=== PATIENT | female | born 1935 | race Caucasian/White ===

== ENCOUNTER → 2018-01-23 13:35 | Outpatient (CLI) | payer MEDICARE, SELFPAY ==
[2018-01-23 14:13] LABS: Hematocrit 34.9 % (37-47); Hemoglobin 11.3 g/dl (12.0-15.0); Mean Corp Hgb Conc 32.4 g/gl (32-36); Mean Corpuscular Hgb 29.9 pg (27.0-32.0); Mean Corpuscular Volume 92.3 fL (81-99); Mean Platelet Vol. 11.6 fl (6.2-12.0); Platelet Count 145 K/mm3 (150-450); RBC Distribution Width CV 14.5 % (11.6-14.6); RBC Distribution Width SD 47.4 fl (35.1-43.9); Red Blood Count 3.78 M/mm3 (4.2-5.4); White Blood Count 6.1 K/mm3 (4.4-11.0)
[2018-01-23 14:18] LABS: Scan Indicated on CBC? Y/N NO
[2018-01-23 14:38] LABS: Albumin, Serum 3.5 g/dL (3.2-5.0); BUN 30 mg/dL (7-18); BUN/Creat Ratio 15.7 RATIO (10-20); Calcium,Total 8.5 mg/dL (8.5-10.1); Chloride 109 mmol/L (98-107); Creatinine, Serum 1.91 mg/dL (0.55-1.02); EST Glomerular Filtration Rate 27 mL/min (>60); Est Glom Filt Rate - Afr Amer 32 mL/min (>60); Ferritin 453 ng/mL (8-252); Glucose 99 mg/dL (74-106); Iron 60 ug/dL (50-170); Iron Binding Capacity,Total 192 ug/dL (250-450); PERCENT IRON SATURATION 31.2 % (15.0-55.0); Phosphorus 3.8 mg/dL (2.5-4.9); Potassium 4.5 mmol/L (3.5-5.1); Sodium Level 145 mmol/L (136-145)
== END ==
PROVIDERS: Family Provider Family Medicine; PCP Family Medicine; Visit Provider Internal Medicine Nephrology
DX: D64.9 Anemia, unspecified (principal); N17.9 Acute kidney failure, unspecified
CPT/HCPCS: 36415; 80069; 82728; 83540; 83550; 85027

== ENCOUNTER 2018-02-19 07:58 | Day surgery (SDC) | payer MEDICARE, SELFPAY ==
[2018-02-19] VITALS (8 sets, daily range): BP systolic 113–134; BP diastolic 41–60; PULSE 47–52; RESP 16; TEMP 36.1–36.6; O2SAT 95–97; BMI 26.1
--- NOTE | 2018-02-19 08:57 | PCM.OPRPT ---
Problem List (1) Change in bowel habits Status: Acute (2) Generalized abdominal pain Status: Acute (3) Diarrhea, unspecified Status: Acute Qualifiers: Diarrhea type: unspecified type Qualified Code(s): R19.7 - Diarrhea, unspecified Report of Operation Date of Procedure: 02/19/18 Surgery/Procedure Performed:: 19021 colonoscopy Type of Anesthesia:: MAC Anesthesiologist: Vijay Mujica Description of Procedure: Patient was brought into the endoscopy suite. Placed in the left lateral decubitus position. Was given graded anesthesia. Scope was inserted into the rectum. It was directed through the sigmoid colon, descending colon, transverse colon, ascending colon, to the cecum without difficulty. Operative findings: 1. Cecum: Normal appearance no mass lesions normal ileocecal valve. 2. Ascending colon: Normal appearance no mass lesions. 3. Transverse colon: Normal appearance no mass lesions. 4. Descending colon: Normal appearance no mass lesions. 5. Sigmoid colon: Normal appearance no mass lesions. Scattered diverticuli were identified. 6. Rectum: Normal appearance no mass lesions retroflexion showed some internal hemorrhoids which were not actively bleeding. The mucosa throughout the colon looked entirely normal. She did have some spasming which I gave her 1 amp of glucagon and I was able to view the entire mucosa quite easily and quite well. She had an excellent bowel prep. There is no explanation for change in bowel habits or generalized abdominal pain given the normalcy of this colonoscopy. She will not need to have another colonoscopy. - Admit VTE Documentation VTE Present on Admission: No VTE Mechan Device Prophylaxis: None VTE Pharm Prophylaxis ordered?: No Reason prophylaxis not ordered:: Treatment Not Indicated
== END 2018-02-19 10:00 | disposition home or self-care (01) ==
LOC: EN 07:59 → AC 08:00
PROVIDERS: Family Provider Family Medicine; PCP Family Medicine; Visit Provider Surgery
PROC: 0DJD8ZZ Inspection of Lower Intestinal Tract, Via Natural or Artificial Opening Endoscopic (ICD-10-PCS; CPT 45378; principal; 2018-02-19 09:25)
DX: R19.4 Change in bowel habit (principal); R10.84 Generalized abdominal pain; K58.0 Irritable bowel syndrome with diarrhea; I13.0 Hypertensive heart and chronic kidney disease with heart failure and stage 1 through stage 4 chronic kidney disease, or unspecified chronic kidney disease; N18.3 Chronic kidney disease, stage 3 (moderate); I50.31 Acute diastolic (congestive) heart failure; I27.20 Pulmonary hypertension, unspecified; G89.4 Chronic pain syndrome; N17.9 Acute kidney failure, unspecified; M06.9 Rheumatoid arthritis, unspecified; G62.9 Polyneuropathy, unspecified; K21.9 Gastro-esophageal reflux disease without esophagitis; F32.9 Major depressive disorder, single episode, unspecified; Z78.0 Asymptomatic menopausal state; Z79.82 Long term (current) use of aspirin; Z79.899 Other long term (current) drug therapy; Z87.442 Personal history of urinary calculi; Z86.2 Personal history of diseases of the blood and blood-forming organs and certain disorders involving the immune mechanism
CPT/HCPCS: G0121; J7120; J1610

== ENCOUNTER → 2018-06-26 13:15 | Outpatient (CLI) | payer MEDICARE, SELFPAY ==
[2018-06-26 14:50] LABS: Albumin, Serum 3.3 g/dL (3.2-5.0); BUN 40 mg/dL (7-18); BUN/Creat Ratio 20.6 RATIO (10-20); Calcium,Total 8.2 mg/dL (8.5-10.1); Chloride 107 mmol/L (98-107); Creatinine, Serum 1.94 mg/dL (0.55-1.02); EST Glomerular Filtration Rate 26 mL/min (>60); Est Glom Filt Rate - Afr Amer 32 mL/min (>60); Glucose 82 mg/dL (74-106); Phosphorus 4.4 mg/dL (2.5-4.9); Potassium 4.3 mmol/L (3.5-5.1); Sodium Level 142 mmol/L (136-145)
[2018-06-26 15:00] LABS: Vitamin D,25 Hydroxy 19.7 ng/mL (29.95-100.01)
== END ==
PROVIDERS: Family Provider Family Medicine; PCP Family Medicine; Referring Provider Internal Medicine Nephrology; Visit Provider Internal Medicine Nephrology
DX: N18.3 Chronic kidney disease, stage 3 (moderate) (principal)
CPT/HCPCS: 36415; 80069; 82306

== ENCOUNTER → 2018-07-01 16:35 | Outpatient (CLI) | payer MEDICARE, SELFPAY ==
[2018-07-02 09:15] LABS: PTHIN 186.6 pg/mL (18.4-80.1)
== END ==
PROVIDERS: Family Provider Family Medicine; PCP Family Medicine; Visit Provider Internal Medicine Nephrology
DX: N18.3 Chronic kidney disease, stage 3 (moderate) (principal)
CPT/HCPCS: 36415; 83970

== ENCOUNTER → 2018-07-30 14:54 | Outpatient (CLI) | payer MEDICARE, SELFPAY ==
[2018-07-30 17:46] LABS: Albumin, Serum 3.5 g/dL (3.2-5.0); BUN 27 mg/dL (7-18); Calcium,Total 8.6 mg/dL (8.5-10.1); Chloride 107 mmol/L (98-107); Creatinine, Serum 1.59 mg/dL (0.55-1.02); EST Glomerular Filtration Rate 33 mL/min (>60); Est Glom Filt Rate - Afr Amer 40 mL/min (>60); Glucose 89 mg/dL (74-106); Potassium 4.6 mmol/L (3.5-5.1); Sodium Level 144 mmol/L (136-145)
== END ==
PROVIDERS: Family Provider Family Medicine; PCP Family Medicine; Referring Provider Internal Medicine Nephrology; Visit Provider Internal Medicine Nephrology
DX: N17.9 Acute kidney failure, unspecified (principal); E55.9 Vitamin D deficiency, unspecified
CPT/HCPCS: 36415; 80069

== ENCOUNTER → 2018-10-08 16:07 | Outpatient (CLI) | payer MEDICARE, SELFPAY ==
[2018-02-19 08:38] VITALS: BMI 26.1
== END ==
PROVIDERS: Family Provider Family Medicine; PCP Family Medicine; Referring Provider Otolaryngology Otolaryngology/Facial Plastic Surgery; Visit Provider Otolaryngology Otolaryngology/Facial Plastic Surgery
DX: J02.9 Acute pharyngitis, unspecified (principal); J32.9 Chronic sinusitis, unspecified; R05 Cough
CPT/HCPCS: 87070; 87077; 87186

== ENCOUNTER → 2018-11-20 13:22 | Outpatient (CLI) | payer MEDICARE, SELFPAY ==
[2018-02-19 08:38] VITALS: BMI 26.1
[2018-11-20 14:41] LABS: Albumin, Serum 3.6 g/dL (3.2-5.0); BUN 42 mg/dL (7-18); BUN/Creat Ratio 27.3 RATIO (10-20); Calcium,Total 8.4 mg/dL (8.5-10.1); Chloride 109 mmol/L (98-107); Creatinine, Serum 1.54 mg/dL (0.55-1.02); EST Glomerular Filtration Rate 34 mL/min (>60); Est Glom Filt Rate - Afr Amer 41 mL/min (>60); Glucose 103 mg/dL (74-106); Phosphorus 4.3 mg/dL (2.5-4.9); Potassium 4.3 mmol/L (3.5-5.1); Sodium Level 143 mmol/L (136-145)
[2018-11-20 14:49] LABS: PTHIN 163.7 pg/mL (18.4-80.1); Vitamin D,25 Hydroxy 25.1 ng/mL (29.95-100.01)
== END ==
PROVIDERS: Family Provider Family Medicine; PCP Family Medicine; Referring Provider Internal Medicine Nephrology; Visit Provider Internal Medicine Nephrology
DX: E55.9 Vitamin D deficiency, unspecified (principal); N17.9 Acute kidney failure, unspecified
CPT/HCPCS: 36415; 80069; 82306; 83970

== ENCOUNTER → 2018-12-25 16:06 | Outpatient (CLI) | payer MEDICARE, SELFPAY | PROVIDERS: Family Provider Family Medicine; PCP Family Medicine; Visit Provider Family Medicine | DX: R49.9 Unspecified voice and resonance disorder (principal); B96.5 Pseudomonas (aeruginosa) (mallei) (pseudomallei) as the cause of diseases classified elsewhere | CPT/HCPCS: 87070 ==

== ENCOUNTER → 2019-02-02 12:49 | Outpatient (CLI) | payer MEDICARE, SELFPAY ==
[2018-02-19 08:38] VITALS: BMI 26.1
--- NOTE | 2019-02-02 12:52 | RAD_ITS ---
STUDY: X-RAY CHEST REASON FOR EXAM: Female, 83 years old. cough TECHNIQUE: PA and lateral views of the chest. COMPARISON: Chest x-ray 02/04/2017. FINDINGS: There is elevation of the right hemidiaphragm. There are loops of bowel interposed between the right hemidiaphragm and liver. There is hyperinflation of the lungs consistent with chronic obstructive lung disease (COPD). There is no demonstrated pleural abnormality. Normal size heart. Normal mediastinum and jono. Normal visualized pulmonary arteries. There is atherosclerotic calcification of the aortic arch . Normal visualized thoracic spine. Normal visualized ribs, clavicles, and shoulders. There is no demonstrated abnormality of the visualized soft tissue structures of the upper abdomen. RAD/Chest PA and Lateral IMPRESSION: Elevation of the right hemidiaphragm. The lungs are clear. Electronically Signed: Ulises Murray, at 16:18 EDT Tel , Service support ,
== END ==
PROVIDERS: Family Provider Family Medicine; PCP Family Medicine; Referring Provider Otolaryngology Otolaryngology/Facial Plastic Surgery; Visit Provider Otolaryngology Otolaryngology/Facial Plastic Surgery
DX: R05 Cough (principal)
CPT/HCPCS: 71046

== ENCOUNTER → 2019-03-30 13:26 | Outpatient (CLI) | payer MEDICARE, SELFPAY ==
[2018-02-19 08:38] VITALS: BMI 26.1
[2019-03-30 15:38] LABS: Albumin, Serum 3.4 g/dL (3.2-5.0); BUN 25 mg/dL (7-18); BUN/Creat Ratio 15.2 RATIO (10-20); Calcium,Total 8.3 mg/dL (8.5-10.1); Chloride 110 mmol/L (98-107); Creatinine, Serum 1.64 mg/dL (0.55-1.02); EST Glomerular Filtration Rate 32 mL/min (>60); Est Glom Filt Rate - Afr Amer 38 mL/min (>60); Glucose 102 mg/dL (74-106); Phosphorus 3.4 mg/dL (2.5-4.9); Potassium 3.9 mmol/L (3.5-5.1); Sodium Level 142 mmol/L (136-145)
== END ==
PROVIDERS: Family Provider Family Medicine; PCP Family Medicine; Referring Provider Internal Medicine Nephrology; Visit Provider Internal Medicine Nephrology
DX: N17.9 Acute kidney failure, unspecified (principal)
CPT/HCPCS: 36415; 80069

== ENCOUNTER → 2019-04-10 13:13 | Outpatient (CLI) | payer MEDICARE, SELFPAY ==
--- NOTE | 2019-04-10 13:16 | CDU_ITS ---
Reason For Study: Carotid Artery Disease, HTN Rt. Velocities/BP Lt. Velocities/BP Prox CCA 72/14 cm/sec. Prox CCA 63/12 cm/sec. Mid CCA 64/15 cm/sec. Mid CCA 69/15 cm/sec. Dist CCA 77/12 cm/sec. Dist CCA 63/13 cm/sec. Prox ICA 72/16 cm/sec. Prox ICA 91/19 cm/sec. Mid ICA 92/17 cm/sec. Mid ICA 124/25 cm/sec. Dist ICA 99/20 cm/sec. Dist ICA 151/27 cm/sec. Rt. ICA/CCA = 1.6. Lt. ICA/CCA = 2.2. Prox ECA 48 cm/sec. Prox ECA 69 cm/sec. Rt. Vert. 59/11 cm/sec. Lt. Vert. 56/9 cm/sec. Right Extracranial There is heterogeneous, smooth atherosclerotic plaque noted in the right common carotid artery. There is heterogeneous, irregular atherosclerotic plaque noted in the right internal carotid artery. There is intimal thickening but no significant atherosclerotic plaque noted in the right external carotid artery. Antegrade flow is noted in the right vertebral artery. Left Extracranial There is heterogeneous, irregular atherosclerotic plaque noted in the left common carotid artery. There is heterogeneous, irregular atherosclerotic plaque noted in the left internal carotid artery. The left internal carotid artery is very tortuous. There is heterogeneous, irregular atherosclerotic plaque noted in the left external carotid artery. Antegrade flow is noted in the left vertebral artery. Procedure Carotid Duplex [id number]. Exam performed in department. Interpretation Summary Mild (<50%) stenosis right extracranial internal carotid. Mild (<50%) stenosis left extracranial internal carotid. Elevated velocities in the left distal internal carotid artery appear to be due to tortuosity. Flow within the vertebral arteries is antegrade bilaterally. Ordering Physician: Bassam Brown Referring Physician: Bassam Brown Performed By: Ayah Robledo RDCS, RVT
== END ==
PROVIDERS: Family Provider Family Medicine; PCP Family Medicine; Referring Provider Family Medicine; Visit Provider Family Medicine
DX: R09.89 Other specified symptoms and signs involving the circulatory and respiratory systems (principal); I65.29 Occlusion and stenosis of unspecified carotid artery; I10 Essential (primary) hypertension
CPT/HCPCS: 70450; 71045; 80048; 85025; 93880; 99284; J7030; A4216; J2405

== ENCOUNTER 2019-04-10 18:30 | Emergency (ER) | payer MEDICARE, SELFPAY ==
[2019-04-10 18:30] VITALS: BP 201/76; PULSE 56; RESP 16; TEMP 36.5; O2SAT 95; BMI 23.4
--- NOTE | 2019-04-10 19:07 | CT_ITS ---
STUDY: CT BRAIN WITHOUT CONTRAST REASON FOR EXAM: Female, 83 years old. Headache and hypertension. RADIATION DOSAGE (If Supplied By Facility): CTDIvol = ( 44.99 ) mGy, DLP = ( 762.36 ) mGycm TECHNIQUE: Transaxial CT imaging of the brain was performed without administration of intravenous contrast material. Individualized dose optimization techniques were used for this CT. COMPARISON: Prior head CT exam of October 11, 2016 FINDINGS: Normal soft tissue structures. Normal calvarium. There is mild cerebral atrophy with widening of the extra-axial spaces and ventricular dilatation. There are areas of decreased attenuation within the white matter tracts of the supratentorial brain, consistent with microvascular disease changes. Normal basal ganglia and thalami. Normal brainstem. Normal cerebellum. Carotid and vertebral artery calcifications. There is no intracranial hemorrhage. There are no findings of an acute ischemic infarction. 10 mm retention cyst of the left maxillary sinus. CT/Brain/Head without Contrast IMPRESSION: No acute intracranial findings. Negative for hemorrhage, hematoma or mass density. Mild involutional changes stable from prior exam. Carotid vertebral artery calcifications. 10 mm retention cyst of the left maxillary sinus. Electronically Signed: Reina Blanchard MD at 19:57 EDT , Service support ,
[2019-04-10] MEDS: Ondansetron 4 MG/2 ML Vial IV (19:28)
[2019-04-10] MEDS: 0.9% Normal Saline 1,000 ML 1000 ML IV (19:28)
[2019-04-10 19:33] VITALS: BP 200/65; PULSE 55; RESP 16; O2SAT 96
[2019-04-10 19:50] LABS: Anion Gap 4 (5-15); BUN 20 mg/dL (7-18); BUN/Creat Ratio 13.8 RATIO (10-20); Calcium,Total 8.4 mg/dL (8.5-10.1); Chloride 109 mmol/L (98-107); Creatinine, Serum 1.45 mg/dL (0.55-1.02); EST Glomerular Filtration Rate 37 mL/min (>60); Est Glom Filt Rate - Afr Amer 44 mL/min (>60); Estimated Creatinine Clearance 28.59 ml/min; Glucose 87 mg/dL (74-106); Potassium 4.5 mmol/L (3.5-5.1); Sodium Level 142 mmol/L (136-145)
[2019-04-10 20:15] LABS: Absolute Lymphocyte Count 1.05 X10^3/ul (0.83-4.51); Absolute Neutrophil Count 2.7 X10^3/uL (2.0-7.7); Basophil# 0.02 X10^3/uL; Basophil% 0.4 % (0-1); Eosinophil# 0.19 X10^3/uL; Eosinophils% 4.2 % (0-5); Hematocrit 29.6 % (37-47); Hemoglobin 9.6 g/dl (12.0-15.0); Lymphocyte # 1.05 X10^3/ul (4.0); Lymphocyte % 23.1 % (19-41); Mean Corp Hgb Conc 32.4 g/gl (32-36); Mean Corpuscular Hgb 29.3 pg (27.0-32.0); Mean Corpuscular Volume 90.2 fL (81-99); Mean Platelet Vol. 11.9 fl (6.2-12.0); Monocyte# 0.59 X10^3/uL; Neutrophil # 2.69 X10^3/uL (2.7-7.7); Neutrophil % 59.1 % (47-70); Platelet Count 83 K/mm3 (150-450); RBC Distribution Width CV 15.2 % (11.6-14.6); Red Blood Count 3.28 M/mm3 (4.2-5.4); White Blood Count 4.6 K/mm3 (4.4-11.0)
[2019-04-10 20:23] LABS: POSITIVE COUNT NO; POSITIVE DIFFERENTIAL NO; POSITIVE MORPHOLOGY NO
[2019-04-10 20:54] VITALS: BP 202/67; PULSE 55
[2019-04-10 22:16] VITALS: BP 195/74; PULSE 55; RESP 16; O2SAT 98
--- NOTE | 2019-04-10 22:39 | ED.DCSUM_ITS ---
- ER Visit Summary Date of Service: 04/10/19 Chief Complaint: Acute on chronic hypertension. History of Present Illness: The patient is a 83 F [facility] resident with a history of hypertension, CHF and renal insufficiency. Brought in for elevated blood pressure today. She has had mild headaches. She has had some intermittent nausea and vomiting. No fall or head trauma. She is on no blood thinners. No fever chills or diarrhea. No dysuria. No abdominal pain or chest pain. No shortness of breath. Physical Examination: Elderly female no acute distress. Vital signs initial blood pressure 201/76. Pulse ox 95% on room air hypoxia. HEENT exam unremarkable. Neck nontender no JVD. No lymphadenopathy. Lungs clear to auscultation bilaterally. Heart regular rhythm no murmur. Abdomen soft and nontender. Normal bowel sounds no peritoneal signs. Extremities moves all 4. Calves nontender. Neurologically she is awake and alert. Answering questions and following commands. No focal motor deficits. Test Results: CBC showed a chronic anemia with a hemoglobin 9.6 normally she runs between 911. White count of 4. Her platelet count is low 83,000 which I discussed with her daughter. Chemistries are unremarkable her creatinine is 1.45 which is her baseline renal insufficiency. CT of the brain showed no acute abnormality chronic changes read both by myself and the radiologist. X-ray portable one view shows no acute abnormality. Chronically elevated right hemidiaphragm. No signs of failure or pneumonia. Emergency Department Course and Treatment: Repeat exam patient is doing well at 2220. Her blood pressure is currently 195/104. She will be given a dose of IV Lopressor. Daughter and patient are current with her being discharged back to the extended care facility. Blood pressure actually worsened and she was given a dose of labetalol. Currently her pressure is 190/68. She will be discharged to home. Treatment Plan: Continue current medications. Close observation of her blood pressures. And follow-up with her primary care physician for adjustment of her blood pressure medications as needed. She will need her platelet count reevaluated within the next 1 to 2 weeks. Disposition: Discharge Impression: Acute on chronic hypertension Chronic simple anemia Worsening thrombocytopenia which will need to reevaluate. Chronic renal insufficiency This note was generated with [employer] dictation software. It may contain incorrect words, spelling, and punctuation that were not noted in review of the chart prior to signing ED Disposition - Plan for ED Patient: Disposition: Home or Assisted Living Instructions: HYPERTENSION, Established, Out of Control Referrals: Bassam Brown, [Primary Care Provider] - 5-7 Days Additional Instructions: Follow-up with primary care physician. They need to log her blood pressures daily at the [place] [facility] and follow that up with her primary care physician to see if they need to adjust her blood pressure medications. Her blood counts were where she normally runs being anemic. However her platelet count was only 83,000 and will need to be rechecked. Follow-up with your doctor. Return if feeling worse.
--- NOTE | 2019-04-10 22:43 | ED.DEP ---
ED Disposition - Plan for ED Patient: Disposition: Home or Assisted Living Instructions: HYPERTENSION, Established, Out of Control Referrals: Bassam Brown, [Primary Care Provider] - 5-7 Days Additional Instructions: Follow-up with primary care physician. They need to log her blood pressures daily at the senior care and follow that up with her primary care physician to see if they need to adjust her blood pressure medications. Her blood counts were where she normally runs being anemic. However her platelet count was only 83,000 and will need to be rechecked. Follow-up with your doctor. Return if feeling worse.
[2019-04-10] MEDS: Metoprolol Tartrate 5 MG/5 ML Vial IV (22:46)
[2019-04-10 23:06] VITALS: BP 232/71; PULSE 52; RESP 18; O2SAT 90
--- NOTE | 2019-04-10 23:30 | RAD_ITS ---
STUDY: X-RAY CHEST REASON FOR EXAM: Female, 83 years old. Hypertension TECHNIQUE: Single AP portable view of the chest. COMPARISON: February 02, 2019 February 04, 2017, February 02, 2019 FINDINGS: There is elevation of the right hemidiaphragm stable since prior study. There is a small focal opacity within the right upper lobe measuring 4 x 6 mm. This was not definitively seen on the prior study allowing for the common location of the pvc monitor lead. There is no demonstrated pleural abnormality. There are chronic appearing lung markings. Normal size heart. Normal mediastinum and jono. Normal visualized pulmonary arteries. There is atherosclerotic calcification of the aortic arch with tortuosity. There are diffuse degenerative changes of the visualized thoracic spine. Normal visualized ribs, clavicles, and shoulders. Surgical clips in the right upper quadrant status post cholecystectomy. RAD/Chest 1 View (Portable) IMPRESSION: 4 x 6 mm right upper lobe pulmonary nodule. When possible recommend noncontrast chest CT to exclude the possibility of a neoplastic nodule. Chronic elevation of the right hemidiaphragm. Electronically Signed: Lissett Law MD at 23:56 EDT Tel , Service support ,
[2019-04-10 23:48] VITALS: BP 190/68; PULSE 53; RESP 22; O2SAT 90
[2019-04-11] VITALS: BP 207/71; PULSE 53; RESP 20; O2SAT 89
[2019-04-11 00:24] VITALS: BP 202/71
[2019-04-11 00:39] VITALS: BP 202/74; PULSE 52; RESP 16; O2SAT 91
== END 2019-04-11 00:40 | disposition home or self-care (01) ==
PROVIDERS: Emergency Provider Emergency Medicine; Family Provider Family Medicine; PCP Family Medicine
DX: I13.0 Hypertensive heart and chronic kidney disease with heart failure and stage 1 through stage 4 chronic kidney disease, or unspecified chronic kidney disease (principal); N18.3 Chronic kidney disease, stage 3 (moderate); I50.9 Heart failure, unspecified; R11.2 Nausea with vomiting, unspecified; R09.89 Other specified symptoms and signs involving the circulatory and respiratory systems; I65.29 Occlusion and stenosis of unspecified carotid artery; D69.6 Thrombocytopenia, unspecified; D64.9 Anemia, unspecified; Z79.82 Long term (current) use of aspirin; Z79.899 Other long term (current) drug therapy
CPT/HCPCS: 70450; 71045; 80048; 85025; 93880; 96361; 96374; 96375; 99284; J7030; A4216; J2405

== ENCOUNTER → 2019-04-28 12:31 | Outpatient (CLI) | payer MEDICARE, SELFPAY ==
[2019-04-10 18:30] VITALS: BMI 23.4
--- NOTE | 2019-04-28 12:35 | CT_ITS ---
STUDY: CT BRAIN WITHOUT CONTRAST REASON FOR EXAM: Female, 83 years old. Right facial bruising due to multiple falls. RADIATION DOSAGE (If Supplied By Facility): CTDIvol = ( 44.99 ) mGy, DLP = ( 745.49 ) mGycm TECHNIQUE: Transaxial CT imaging of the brain was performed without administration of intravenous contrast material. Individualized dose optimization techniques were used for this CT. COMPARISON: Comparison is made with prior study dated April 10, 2019. FINDINGS: There is evidence of a small scalp hematoma overlying the right frontal bone. Normal calvarium. There is mild cerebral atrophy with widening of the extra-axial spaces and ventricular dilatation. There are areas of decreased attenuation within the white matter tracts of the supratentorial brain, consistent with microvascular disease changes. Normal basal ganglia and thalami. Normal brainstem. There is mild cerebellar atrophy. There is no intracranial hemorrhage. There are no findings of an acute ischemic infarction. Atherosclerotic calcification of the cavernous portions of the internal carotid arteries as well as the vertebral arteries. Mucosal thickening at the base of the left maxillary sinus versus retention cyst as well as mild thickening of the ethmoid sinuses. CT/Brain/Head without Contrast IMPRESSION: Chronic involutional changes of the brain. Stable examination. Electronically Signed: Kayden Sullivan, at 13:34 EDT , Service support ,
== END ==
PROVIDERS: Family Provider Family Medicine; PCP Family Medicine; Referring Provider Family Medicine; Visit Provider Family Medicine
DX: R41.0 Disorientation, unspecified (principal); R29.6 Repeated falls; Z79.02 Long term (current) use of antithrombotics/antiplatelets
CPT/HCPCS: 70450

== ENCOUNTER → 2019-05-04 13:18 | Outpatient (CLI) | payer MEDICARE, SELFPAY ==
[2019-04-10 18:30] VITALS: BMI 23.4
--- NOTE | 2019-05-04 13:00 | SP.MBSS_ITS ---
PRIMARY / SECONDARY DIAGNOSIS: Dysphagia REFERRING PHYSICIAN: Dr. Tejeda CURRENT DIET: regular/thin DENTITION: present MENTAL STATUS: WFL for participation in MBS RESPIRATORY STATUS: oxygenating on room air, denies O2 use, reports recent initiation of inhalers for asthma PREVIOUS MODIFIED BARIUM SWALLOW STUDY: n/a REASON FOR REFERRAL: Patient reports sensation of pharyngeal retention w/ bread/meat/medications and occasional ?gurgling? when drinking liquids in an attempt to clear this sensation of pharyngeal retention. Patient denies head/neck surgery, known CVA or neurological diagnosis, recent/recurrent PNA, or unintended weight loss. MEDICAL HISTORY: peripheral neuropathy, pulmonary hypertension, acute diastolic congestive heart failure, CKD stage III, elevated hemidiaphragm, depression, altered mental status, acute respiratory failure, chronic pain syndrome, RA history obtained from review of [facility] medical records STUDY FINDINGS: Patient participated in a Modified Barium Swallow (MBS) study on 05/04/2019. Dr. Sullivan was the radiologist present for this evaluation. This study was not recorded due to equipment failure. The following consistencies were presented to this patient for analysis of oropharyngeal swallow function: thin liquid, pudding and a shortbread cookie. Results of the MBS are as follows: PENETRATION / ASPIRATION SCALE (NOEL): 1 = does not enter airway 2 = enters airway/above vocal folds/ejected 3 = enters airway/above vocal folds/not ejected 4 = enters airway/contacts vocal folds/ejected 5 = enters airway/contacts vocal folds/not ejected 6 = enters airway/below vocal folds/ejected 7 = enters airway/below vocal folds/not ejected despite effort 8 = enters airway/below vocal folds/no effort PENETRATION / ASPIRATION SCALE (SCORE): 1. Thin liquid 5mL teaspoon: 1 2. Thin liquid 5mL teaspoon: 2 3. Thin liquid single sip from cup: 5 4. Thin liquid single sip from cup w/ chin tuck: 1 5. Thin liquid single sip from cup w/ chin tuck: 1 6. Puddin 7. Cookie: 1 8. Thin liquid single sip from cup w/ chin tuck: 1 penetration of pharyngeal residue noted after the swallow, cued expectoration and re-swallow effective to clear the laryngeal vestibule of penetrated contrast 9. Thin liquid single sip from cup w/ chin tuck: 1 IMPRESSION ORAL PHASE CHARACTERIZED BY: LABIAL SEAL: interlabial escape, no progression to anterior lip TONGUE CONTROL DURING BOLUS MANIPULATION: posterior escape of less than half of bolus BOLUS PREPARATION / MASTICATION: slow prolonged chewing/mashing with complete recollection BOLUS TRANSPORT / LINGUAL MOTION: slowed tongue motion ORAL RESIDUE: trace residue lining oral structures PHARYNGEAL PHASE CHARACTERIZED BY: INITIATION OF PHARYNGEAL SWALLOW: bolus head in valleculae at first hyoid excursion SOFT PALATE ELEVATION: no bolus between soft palate and pharyngeal wall LARYNGEAL ELEVATION: partial superior movement of thyroid cartilage/partial approximation of arytenoids cartilage to epiglottic petiole ANTERIOR HYOID EXCURSION: partial anterior movement EPIGLOTTIC MOVEMENT: partial epiglottic inversion LARYNGEAL VESTIBULE CLOSURE AT HEIGHT OF SWALLOW: incomplete laryngeal vestibule closure with narrow column of air/contrast in laryngeal vestibule PHARYNGEAL STRIPPING WAVE: pharyngeal stripping wave present / diminished PHARYNGOESOPHAGEAL SEGMENT OPENING: partial distension and partial duration; partial obstruction of flow TONGUE BASE RETRACTION: narrow column of contrast between tongue base and posterior pharyngeal wall PHARYNGEAL RESIDUE: collection of residue within or on pharyngeal structures ESOPHAGEAL PHASE CHARACTERIZED BY: ESOPHAGEAL BOLUS CLEARANCE IN THE UPRIGHT POSITION: esophageal retention EFFECTS OF TREATMENT STRATEGIES ATTEMPTED: CHIN TUCK POSTURE = effective to effective to reduce arytenoid to epiglottic petiole distance during deglutition for improved laryngeal vestibule closure w/ elimination of penetration CUED EXPECTORATION AND RESWALLOW= effective to clear penetrated contrast from the laryngeal vestibule EFFORTFUL SWALLOW = effective to reduce but not eliminate vallecular retention DOUBLE SWALLOW = effective to reduce but not eliminate vallecular retention LIQUID CHASER = effective to reduce but not assist in clearance of vallecular retention INTERPRETATION OF RESULTS: This patient presents with mild oropharyngeal dysphagia (R13.12). The oral phase is primarily marked by slowed oral prep w/ suboptimal lingual control resulting in premature pharyngeal bolus entry. The pharyngeal phase is primarily marked by a mild pharyngeal swallow onset timing (bolus head in the valleculae), reduced hyolaryngeal excursion, tongue base retraction, laryngeal vestibule closure and pharyngeal contraction resulting in suboptimal bolus location upon swallow onset w/ laryngeal vestibule penetration of thin liquid. Use of a chin tuck posture was effective to reduce arytenoid to epiglottic petiole distance during deglutition for improved laryngeal vestibule closure w/ elimination of penetration. Reduced tongue base retraction/pharyngeal contraction in conjunction w/ reduced hyolaryngeal excursion resulted in incomplete epiglottic inversion w/ moderate to severe vallecular residue retention post deglutition which is the likely cause of the globus sensation w/ bread/meat/pills reported by patient which precipitated referral. Use of a double swallow, effortful swallow and liquid chaser were all effective to reduce pharyngeal residue retention/facilitate improved pharyngeal bolus clearance. Laryngeal vestibule penetration noted following effortful swallow w/ liquid wash (using chin tuck) cued expectoration and re-swallow was effective to eject penetration from the laryngeal vestibule. RECOMMENDATIONS DIET TEXTURE RECOMMENDATIONS: regular textures/thin liquids COMPENSATORY STRATEGIES RECOMMENDED: small bites/sips, tuck chin to chest when swallowing liquids (tuck with all swallows in unable to consistently recall and utilize w/ liquids only), swallow twice/HARD following solids if pharyngeal fullness/retention noted and follow w/ liquid wash, seated upright at 90 degrees during PO intake, remain upright for 30-60 minutes post meal (GERD precaution), medications crushed (if cleared per physician/pharmacy) w/ purees and a liquid chaser NEED FOR SKILLED DYSPHAGIA INTERVENTION: Patient requires intensive skilled speech-language intervention targeting continued diet texture management, training and implementation of recommended compensatory strategies and instruction/implementation of an oropharyngeal strengthening exercises to facilitate improved swallow onset timing, tongue base retraction, laryngeal vestibule closure/pressure, hyolaryngeal excursion/epiglottic inversion and pharyngeal motility. ADDITIONAL COMMENTS: Results and recommendations were discussed with the Patient and two daughters immediately following MBS completion. Written instruction to reinforce recommended compensatory strategies was provided with the Patient verbalizing understanding and agreement with all recommendations and education provided.
--- NOTE | 2019-05-04 13:29 | RAD_ITS ---
STUDY: SWALLOWING STUDY REASON FOR EXAM: Female, 83 years old. Dysphagia. TECHNIQUE: The examination was performed with Speech Pathology in attendance. Under fluoroscopic observation, the patient ingested thin barium, thick barium, barium pudding, and barium coated cracker. FLUOROSCOPY TIME: 3:02 minutes/seconds RADIOLOGIST INVOLVEMENT: Radiologist was present and providing direct supervision. COMPARISON: None. FINDINGS: The following was observed during swallowing of the various mixtures of barium: Thin Barium: Penetration with evacuation upon ingestion of thin liquids. This improves with the chin tuck maneuver. Barium Pudding: There was no evidence of aspiration or laryngeal penetration. Moderate residual within the vallecula. Barium Coated Cracker: There was no evidence of aspiration or laryngeal penetration. RAD/Swallowing Function w/Video IMPRESSION: Transient penetration with evacuation upon ingestion of thin liquids. This improves with the chin tuck maneuver. The swallow study findings were discussed with the patient by the speech pathologist at the conclusion of the examination. Please see speech pathology report for more information and recommendations. Electronically Signed: Kayden Sullivan, at 14:38 EDT , Service support ,
== END ==
PROVIDERS: Family Provider Family Medicine; PCP Family Medicine; Referring Provider Internal Medicine Pulmonary Disease; Visit Provider Internal Medicine Pulmonary Disease
DX: R13.10 Dysphagia, unspecified (principal)
CPT/HCPCS: 74230; 92611

== ENCOUNTER → 2019-05-12 12:25 | Outpatient (CLI) | payer MEDICARE, SELFPAY ==
[2019-05-12 11:38] VITALS: BMI 23.7
[2019-05-12 14:06] LABS: Absolute Lymphocyte Count 0.99 X10^3/uL (0.83-4.51); Absolute Neutrophil Count 1.9 X10^3/uL (2.0-7.7); Basophil# 0.06 X10^3/uL; Basophil% 1.7 % (0-1); Hematocrit 29.3 % (37-47); Hemoglobin 9.4 g/dL (12.0-15.0); Lymphocyte # 0.99 X10^3/ul (4.0); Lymphocyte % 28.8 % (19-41); Mean Corp Hgb Conc 32.1 g/dL (32-36); Mean Corpuscular Hgb 29.7 pg (27.0-32.0); Mean Corpuscular Volume 92.4 fL (81-99); Mean Platelet Vol. 12.7 fl (6.2-12.0); Monocyte# 0.47 X10^3/uL; Monocyte% 13.7 % (0-10); NRBC Flagged by Analyzer 0 % (0-5); Neutrophil # 1.91 X10^3/uL (2.7-7.7); Neutrophil % 55.5 % (47-70); POSITIVE MORPHOLOGY YES; Platelet Count 118 K/mm3 (150-450); RBC Distribution Width CV 14.9 % (11.6-14.6); Red Blood Count 3.17 M/mm3 (4.2-5.4); White Blood Count 3.4 K/mm3 (4.4-11.0)
[2019-05-12 14:18] LABS: Differential Indicated SCAN CRITERIA MET
[2019-05-12 14:22] LABS: T4 Total, Thyroxin 11.4 ug/dL (4.8-13.9); Thyroid Stim Hormone (TSH) 1.81 uIU/mL (0.358-3.74)
[2019-05-12 14:24] LABS: Differential Comment SCANNED
[2019-05-12 14:25] LABS: Red Cell Morphology NORM C+C NORMAL (NORM C&C)
[2019-05-12 14:26] LABS: Platelet Estimate SLT DEC (ADEQ)
== END ==
PROVIDERS: Family Provider Family Medicine; PCP Family Medicine; Referring Provider Internal Medicine Cardiovascular Disease; Visit Provider Internal Medicine Cardiovascular Disease
DX: I50.32 Chronic diastolic (congestive) heart failure (principal); I34.0 Nonrheumatic mitral (valve) insufficiency
CPT/HCPCS: 36415; 84436; 84443; 85025

== ENCOUNTER → 2019-07-31 15:43 | Outpatient (CLI) | payer MEDICARE, SELFPAY ==
[2019-05-12 11:38] VITALS: BMI 23.7
== END ==
PROVIDERS: Family Provider Family Medicine; PCP Family Medicine; Referring Provider Otolaryngology Otolaryngology/Facial Plastic Surgery; Visit Provider Otolaryngology Otolaryngology/Facial Plastic Surgery
DX: J32.9 Chronic sinusitis, unspecified (principal)
CPT/HCPCS: 87070; 87077; 87186; 87205

== ENCOUNTER → 2019-10-06 15:57 | Outpatient (CLI) | payer MEDICARE, SELFPAY ==
[2019-09-08 13:34] VITALS: BMI 23.7
[2019-10-06 17:19] LABS: Hematocrit 29.7 % (37-47); Hemoglobin 9.4 g/dL (12.0-15.0); Mean Corp Hgb Conc 31.6 g/dL (32-36); Mean Corpuscular Hgb 29.5 pg (27.0-32.0); Mean Corpuscular Volume 93.1 fL (81-99); Mean Platelet Vol. 12.3 fl (6.2-12.0); Platelet Count 117 K/mm3 (150-450); RBC Distribution Width CV 15.3 % (11.6-14.6); Red Blood Count 3.19 M/mm3 (4.2-5.4); White Blood Count 3.5 K/mm3 (4.4-11.0)
[2019-10-06 17:33] LABS: Albumin, Serum 3.1 g/dL (3.2-5.0); BUN 23 mg/dL (7-18); BUN/Creat Ratio 17.3 RATIO (10-20); Calcium,Total 8.1 mg/dL (8.5-10.1); Chloride 110 mmol/L (98-107); Creatinine, Serum 1.33 mg/dL (0.55-1.02); EST Glomerular Filtration Rate 40 mL/min (>60); Est Glom Filt Rate - Afr Amer 49 mL/min (>60); Glucose 81 mg/dL (74-106); Phosphorus 3.3 mg/dL (2.5-4.9); Potassium 4.4 mmol/L (3.5-5.1); Sodium Level 144 mmol/L (136-145)
== END ==
PROVIDERS: Family Provider Family Medicine; PCP Family Medicine; Visit Provider Internal Medicine Nephrology
DX: N18.3 Chronic kidney disease, stage 3 (moderate) (principal)
CPT/HCPCS: 36415; 80069; 85027

== ENCOUNTER 2020-02-12 22:53 | Emergency (ER) | payer MEDICARE, MEDICAID, SELFPAY ==
[2019-09-08 13:34] VITALS: BMI 23.7
[2020-02-12 22:55] VITALS: BP 191/57; PULSE 54; RESP 18; TEMP 36.7; O2SAT 92; BMI 21.0
--- NOTE | 2020-02-12 23:13 | CT_ITS ---
STUDY: CT BRAIN WITHOUT CONTRAST REASON FOR EXAM: Female, 84 years old. Fall. No visible abrasions. Consciousness. History of hypertension, chronic kidney disease. RADIATION DOSAGE (If Supplied By Facility): CTDIvol = ( 44.99 ) mGy, DLP = ( 796.11 ) mGycm TECHNIQUE: Transaxial CT imaging of the brain was performed without administration of intravenous contrast material. Individualized dose optimization techniques were used for this CT. COMPARISON: March 29, 2019. FINDINGS: Normal soft tissue structures. Normal calvarium. There is mild cerebral atrophy with widening of the extra-axial spaces and ventricular dilatation. There are areas of decreased attenuation within the white matter tracts of the supratentorial brain, consistent with microvascular disease changes. There are small punctate calcifications of the basal ganglia which are seen in the aging brain as a normal variant. Normal brainstem. Normal cerebellum. There is no intracranial hemorrhage. There are no findings of an acute ischemic infarction. Mucous retention cyst in the left maxillary sinus. CT/Brain/Head without Contrast IMPRESSION: 1. Chronic involutional changes without evidence of acute intracranial or calvarial abnormality. There is no major interval change when compared to prior study. 2. Mucous retention cyst in left maxillary sinus. 3. Resolution of the right frontal subcutaneous hematoma seen on the prior study. Electronically Signed: Tirso Martin DO at 23:49 EDT Tel [phone], Service support ,
--- NOTE | 2020-02-12 23:13 | EKG12_ITS ---
Test Reason : FALL Blood Pressure : / mmHG Vent. Rate : 047 BPM Atrial Rate : 047 BPM P-R Int : 202 ms QRS Dur : 124 ms QT Int : 510 ms P-R-T Axes : 055 -43 020 degrees QTc Int : 451 ms Sinus bradycardia Left axis deviation Left bundle branch block Abnormal ECG Confirmed by JD LARES, CATRINA ([id number]), offline editor MELISA MOORE ([id number]) on 02/16/2020 3:18:09 PM Referred By: KATHY Confirmed By:CATRINA MILES MD
--- NOTE | 2020-02-12 23:14 | RAD_ITS ---
HISTORY: Fall/confusion. Hx of HTN, CKD, RA and prior back surgery EXAMINATION/TECHNIQUE: XR Chest 1 View: Portable COMPARISON: 04/10/2019 and 02/02/2019 FINDINGS: Cardiac telemetry leads in place. No significant change. Chronic eventration of the right hemidiaphragm with secondary hypoventilation of the right lung base. Interposition of the right colon beneath the right hemidiaphragm, unchanged. The heart appears unchanged in size and estimation of heart size is difficult secondary to obscuration of the right heart border. No acute infiltrate. The left lung appears clear. No vascular congestion or pneumothorax. Atherosclerotic thoracic aorta. RAD/Chest 1 View (Portable) IMPRESSION: 1. No acute cardiopulmonary disease. No significant interval change. 2. Chronic eventration of the right hemidiaphragm. at 0027 Reported and signed by: Raul Davila MD Electronically Signed: Raul Davila, at 0:26 EDT Tel , Service support ,
--- NOTE | 2020-02-12 23:14 | RAD_ITS ---
HISTORY: Fall/confusion. EXAMINATION/TECHNIQUE: XR left shoulder 2 views COMPARISON: None FINDINGS: No fracture or dislocation. Mild narrowing of the subacromial-humeral space compatible with chronic rotator cuff disease. Localized calcifications bordering the superior lateral humeral head compatible with calcific tendinosis. 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 RAD/Shoulder min 2 Views IMPRESSION: 1. No fracture or dislocation. 2. Left shoulder focal calcific tendinosis and degenerative changes. at 0050 Reported and signed by: Raul Davila MD Electronically Signed: Raul Davila, at 0:49 EDT Tel , Service support ,
--- NOTE | 2020-02-12 23:16 | ED.VIS.GEN ---
History of Present Illness Chief Complaint: Fall Informant: Patient, SNF Onset: Today Current Severity: Mild Maximum Severity: Mild Narrative: Patient presents after a fall at her correction. Patient reportedly got up from the commode and states that she became dizzy and lightheaded. She then fell. She does not remember all the details but does not believe she passed out. She has no complaints at this time. She is noted to have a superficial laceration to left parietal scalp and a bruise on her left shoulder. Patient reportedly is normally ANO x3 and was only ANO x2 after her fall tonight. - Past Medical History (1) CKD (chronic kidney disease), stage III Status: Chronic (2) Chronic anemia Status: Chronic (3) Chronic diastolic (congestive) heart failure Status: Chronic (4) Depression Status: Chronic (5) HTN (hypertension) Status: Chronic (6) Hyperlipidemia Status: Chronic (7) Peripheral neuropathy Status: Chronic (8) Rheumatoid arthritis Status: Chronic (9) Secondary pulmonary hypertension Status: Chronic Past Medical History - Allergies and Home Meds Allergies/Adverse Reactions: Allergies infliximab [From Remicade] Allergy (Verified 02/12/20 23:00) Hives Penicillins Allergy (Verified 02/12/20 23:00) Hives methotrexate Adverse Reaction (Verified 02/12/20 23:00) Unknown Primary Care Physician: Bassam Brown DO [Primary Care Provider] - 5-7 Days Prior records reviewed: Yes Surgical History: cholecystectomy, - - Back surgery. Lives: Assisted Smoking Status: Never smoker - Family History Maternal Family History: Reports: No pertinent history, - Paternal Family History: Reports: No pertinent history Review of Systems General: Denies: Chills, Fever Eyes: Denies: Visual changes - bilaterally ENT: Denies: Bilateral ear pain Cardiovascular: Denies: Chest pain Respiratory: Denies: Dyspnea, Cough Gastrointestinal: Denies: Abdominal pain, Nausea, Vomiting, Diarrhea Musculoskeletal: Reports: Swelling. Denies: Extremity Pain Skin: Reports: Wounds Neurological: Denies: Headache Allergy: Denies: Uticaria Physical Exam Vital Signs/Narrative: Vital Signs Temp Pulse Resp BP Pulse Ox 02/12/20 22:55 98.1 F 54 L 18 191/57 H 92 Inital Vital Signs reviewed: Yes General: Well nourished, Well developed Head: Normocephalic, - - 2 cm superficial laceration with small hematoma left parietal scalp. Eyes: Perrl, EOMI ENT: Moist mucous membranes Neck: Supple, - - No C-spine tenderness. Cardiovascular: Irregular, Bradycardia Respiratory: No distress, CTA bilaterally, Chest nontender Abdomen: Soft, Nontender, Normal bowel sounds Extremities: - - Small area of ecchymosis over the posterior left humeral head. No bony tenderness. 2-3+ bilateral lower extremity edema is noted. Skin: Pallor Neurological: Alert Psychological: Normal affect Diagnostic/Tx/Re-eval Impressions Brain CT 02/12/20 23:13 IMPRESSION: 1. Chronic involutional changes without evidence of acute intracranial or calvarial abnormality. There is no major interval change when compared to prior study. 2. Mucous retention cyst in left maxillary sinus. 3. Resolution of the right frontal subcutaneous hematoma seen on the prior study. Electronically Signed: Tirso Martin DO at 23:49 EDT Tel [phone], Service support , Chest X-Ray 02/12/20 23:14 IMPRESSION: 1. No acute cardiopulmonary disease. No significant interval change. 2. Chronic eventration of the right hemidiaphragm. at 0027 Reported and signed by: Raul Davila MD Electronically Signed: Raul Davila, at 0:26 EDT Tel , Service support , Shoulder X-Ray 02/12/20 23:14 IMPRESSION: 1. No fracture or dislocation. 2. Left shoulder focal calcific tendinosis and degenerative changes. at 0050 Reported and signed by: Raul Davila MD Electronically Signed: Raul Davila, at 0:49 EDT Tel , Service support , 02/12/20 23:13 Brain/Head without Contrast [CT] Stat 02/12/20 23:14 Chest 1 View (Portable) [RAD] Stat Shoulder min 2 Views [RAD] Stat Laboratory Results 02/12/20 02/12/20 02/12/20 23:11 23:11 23:11 WBC 5.5 RBC 2.90 L Hgb 8.9 L Hct 28.3 L MCV 97.6 MCH 30.7 MCHC 31.4 L RDW Std Deviation 54.0 H RDW Coeff of Dre 15.2 H Plt Count 133 L MPV 11.4 Immature Gran % (Auto) 1.100 H Neut % (Auto) 59.3 Lymph % (Auto) 18.7 L [place] % (Auto) 13.6 H Eos % (Auto) 6.6 H Baso % (Auto) 0.7 Absolute Neuts (auto) 3.2 Absolute Lymphs (auto) 1.02 Nucleated RBC % 0 PT 13.5 INR 1.1 APTT 38.5 H Sodium 141 Potassium 5.1 Chloride 109 H Carbon Dioxide 28.0 Anion Gap 4 L BUN 29 H Creatinine 1.96 H Estim Creat Clear Calc 20.54 Est GFR (MDRD) Af Amer 31 L Est GFR (MDRD) Non-Af 26 L BUN/Creatinine Ratio 14.8 Glucose 102 Calcium 8.3 L Troponin I < 0.015 - EKG Initial EKG Interpretation: Sinus Bradycardia - Sinus bradycardia at 47 bpm. Left bundle branch block noted. - Medical Decision Making Test results are discussed with the patient. She remains alert and oriented x2, answering the year as 2001. This is been consistent when asked multiple times. Patient's labs are reviewed in the computer. She has chronic anemia and chronic renal insufficiency with tonight's values being about her baseline. On review of prior vital signs patient has history of bradycardia with heart rates in the 40s and 50s. Left parietal scalp abrasion is cleansed and sealed with Dermabond. It is not a full-thickness laceration that would be amenable to suturing. Nursing staff to discuss test results with family who are comfortable with [facility] Patient is discharged at this time. ED Disposition - Plan for ED Patient: Disposition: Home or Assisted Living Diagnosis: Fall, Closed head injury Instructions: ED Fall Uncertain Cause, ED Head Injury Adult Referrals: Bassam Brown DO [Primary Care Provider] - 5-7 Days
[2020-02-12 23:31] LABS: Absolute Lymphocyte Count 1.02 X10^3/uL (0.83-4.51); Absolute Neutrophil Count 3.2 X10^3/uL (2.0-7.7); Basophil# 0.04 X10^3/uL; Basophil% 0.7 % (0-1); Eosinophil# 0.36 X10^3/uL; Eosinophils% 6.6 % (0-5); Hematocrit 28.3 % (37-47); Hemoglobin 8.9 g/dL (12.0-15.0); Lymphocyte # 1.02 X10^3/ul (4.0); Lymphocyte % 18.7 % (19-41); Mean Corp Hgb Conc 31.4 g/dL (32-36); Mean Corpuscular Hgb 30.7 pg (27.0-32.0); Mean Corpuscular Volume 97.6 fL (81-99); Mean Platelet Vol. 11.4 fl (6.2-12.0); Monocyte# 0.74 X10^3/uL; Monocyte% 13.6 % (0-10); NRBC Flagged by Analyzer 0 % (0-5); Neutrophil # 3.23 X10^3/uL (2.7-7.7); Neutrophil % 59.3 % (47-70); Platelet Count 133 K/mm3 (150-450); RBC Distribution Width CV 15.2 % (11.6-14.6); White Blood Count 5.5 K/mm3 (4.4-11.0)
[2020-02-12 23:34] LABS: International Normalized Ratio 1.1; Prothrombin Time (Protime)PT. 13.5 SECONDS (11.7-14.9)
[2020-02-12 23:35] LABS: Partial Thromboplast Time 38.5 Seconds (24.1-36.2)
[2020-02-12 23:43] LABS: Anion Gap 4 (5-15); BUN 29 mg/dL (7-18); BUN/Creat Ratio 14.8 RATIO (10-20); Calcium,Total 8.3 mg/dL (8.5-10.1); Chloride 109 mmol/L (98-107); Creatinine, Serum 1.96 mg/dL (0.55-1.02); EST Glomerular Filtration Rate 26 mL/min (>60); Est Glom Filt Rate - Afr Amer 31 mL/min (>60); Estimated Creatinine Clearance 20.54 ml/min; Glucose 102 mg/dL (74-106); Potassium 5.1 mmol/L (3.5-5.1); Sodium Level 141 mmol/L (136-145)
[2020-02-12 23:55] VITALS: BP 145/40; PULSE 48; RESP 16; O2SAT 96
[2020-02-13 00:40] VITALS: BP 133/42; PULSE 46; RESP 14; O2SAT 96
--- NOTE | 2020-02-13 01:22 | ED.RN ---
daughter updated on condition and discharge, spoke with loly salcido and updated and discharge report given to them
[2020-02-13 01:46] VITALS: BP 114/40; PULSE 48; RESP 18; O2SAT 97
== END 2020-02-13 01:46 | disposition skilled nursing facility (03) ==
PROVIDERS: Emergency Provider Emergency Medicine; PCP Family Medicine
DX: S01.01XA Laceration without foreign body of scalp, initial encounter (principal); W18.39XA Other fall on same level, initial encounter; Y93.89 Activity, other specified; Y92.129 Unspecified place in nursing home as the place of occurrence of the external cause; I13.0 Hypertensive heart and chronic kidney disease with heart failure and stage 1 through stage 4 chronic kidney disease, or unspecified chronic kidney disease; N18.3 Chronic kidney disease, stage 3 (moderate); I50.32 Chronic diastolic (congestive) heart failure; D63.1 Anemia in chronic kidney disease; I44.7 Left bundle-branch block, unspecified; I27.20 Pulmonary hypertension, unspecified; E78.5 Hyperlipidemia, unspecified; G62.9 Polyneuropathy, unspecified; M06.9 Rheumatoid arthritis, unspecified; F32.9 Major depressive disorder, single episode, unspecified
CPT/HCPCS: 12001; 70450; 71045; 73030; 80048; 84484; 85025; 85610; 85730; 93005; 99285; A4216

== ENCOUNTER → 2020-02-25 14:27 | Outpatient (CLI) | payer MEDICARE, MEDICAID, SELFPAY ==
[2020-02-12 22:55] VITALS: BMI 21.0
[2020-02-25 16:50] LABS: Absolute Lymphocyte Count 1.07 X10^3/uL (0.83-4.51); Absolute Neutrophil Count 2.4 X10^3/uL (2.0-7.7); Basophil# 0.05 X10^3/uL; Basophil% 1.2 % (0-1); Eosinophil# 0.22 X10^3/uL; Eosinophils% 5.1 % (0-5); Hematocrit 28.7 % (37-47); Hemoglobin 8.8 g/dL (12.0-15.0); Lymphocyte # 1.07 X10^3/ul (4.0); Lymphocyte % 24.8 % (19-41); Mean Corp Hgb Conc 30.7 g/dL (32-36); Mean Corpuscular Hgb 29.5 pg (27.0-32.0); Mean Corpuscular Volume 96.3 fL (81-99); Mean Platelet Vol. 12.2 fl (6.2-12.0); Monocyte# 0.56 X10^3/uL; NRBC Flagged by Analyzer 0 % (0-5); Neutrophil # 2.41 X10^3/uL (2.7-7.7); Neutrophil % 55.7 % (47-70); Platelet Count 147 K/mm3 (150-450); RBC Distribution Width CV 15.2 % (11.6-14.6); RBC Distribution Width SD 51.8 fl (35.1-43.9); Red Blood Count 2.98 M/mm3 (4.2-5.4); White Blood Count 4.3 K/mm3 (4.4-11.0)
[2020-02-25 17:16] LABS: Vitamin B12 450 pg/mL (211-911)
[2020-02-25 17:21] LABS: ALB/GLOB Ratio 0.9 RATIO (0.9-2.4); AST(SGOT) 19 U/L (15-37); Alanine Aminotransfer ALT/SGPT 11 U/L (13-56); Albumin, Serum 3.1 g/dL (3.2-5.0); Alkaline Phosphatase 71 U/L (45-117); Anion Gap 5 (5-15); BUN 26 mg/dL (7-18); BUN/Creat Ratio 15.1 RATIO (10-20); Calcium,Total 8.1 mg/dL (8.5-10.1); Chloride 108 mmol/L (98-107); Creatinine, Serum 1.72 mg/dL (0.55-1.02); EST Glomerular Filtration Rate 30 mL/min (>60); Est Glom Filt Rate - Afr Amer 36 mL/min (>60); Ferritin 364 ng/mL (8-252); Globulin 3.6 g/dL (2.2-4.2); Glucose 93 mg/dL (74-106); Iron 31 ug/dL (50-170); Protein, Total 6.7 g/dL (6.4-8.2); Sodium Level 141 mmol/L (136-145); Thyroid Stim Hormone (TSH) 2.03 uIU/mL (0.358-3.74)
== END ==
PROVIDERS: PCP Family Medicine; Visit Provider Family Medicine
DX: R53.83 Other fatigue (principal); I50.30 Unspecified diastolic (congestive) heart failure
CPT/HCPCS: 36415; 80053; 82607; 82728; 83540; 83880; 84443; 85025

== ENCOUNTER 2020-08-07 21:30 | Inpatient (IN) | payer MEDICARE, MEDICAID, SELFPAY ==
[2020-08-07 21:31] VITALS: BP 141/79; PULSE 54; RESP 16; O2SAT 99
[2020-08-07 21:32] VITALS: BP 168/105; PULSE 67; RESP 15; TEMP 37.4; O2SAT 89; BMI 20.8
--- NOTE | 2020-08-07 21:35 | CT_ITS ---
STUDY: CT BRAIN WITHOUT CONTRAST REASON FOR EXAM: Female, 84 years old. Injury from falling. TECHNIQUE: Transaxial CT imaging of the brain was performed without administration of intravenous contrast material. Individualized dose optimization techniques were used for this CT. COMPARISON: 02/12/2020 CT brain. FINDINGS: No evidence of intracranial hemorrhage, mass, acute infarct, or hydrocephalus. Chronic microangiopathic changes in the white matter. Atherosclerosis of the intracranial arteries. No skull fracture or acute osseous abnormality. Hyperostosis frontalis. Visualized paranasal sinuses and mastoid air cells with no air-fluid levels. Small polyp left maxillary sinus. Visualized extracranial soft tissues unremarkable. CT/Brain/Head without Contrast IMPRESSION: No evidence of intracranial injury or skull fracture. Electronically Signed: Eduardo Duenas, at 22:56 EST Tel , Service support ,
--- NOTE | 2020-08-07 21:36 | EKG12_ITS ---
Test Reason : DYSRYTHMIA Blood Pressure : / mmHG Vent. Rate : 055 BPM Atrial Rate : 055 BPM P-R Int : 198 ms QRS Dur : 128 ms QT Int : 462 ms P-R-T Axes : 068 -44 039 degrees QTc Int : 441 ms Sinus bradycardia Left axis deviation Left ventricular hypertrophy with QRS widening Cannot rule out Septal infarct , age undetermined Abnormal ECG Confirmed by NELSY LARES, TACHO ([id number]), writer editor RAMILA BROCK ([id number]) on 08/08/2020 2:08:02 PM Referred By: TUAN Confirmed By:TACHO WHITTINGTON MD
--- NOTE | 2020-08-07 21:38 | RAD_ITS ---
STUDY: X-RAY - RIGHT KNEE REASON FOR EXAM: Female, 84 years old. Pain after falling. TECHNIQUE: 4 view(s) of the knee. COMPARISON: 01/23/17 right knee radiographs. FINDINGS: No visible fracture. No osseous destruction. Alignment anatomic. Moderate degenerative changes. Small joint effusion. Calcific atherosclerosis. RAD/Knee 4 or More Views IMPRESSION: No acute osseous abnormality. Small joint effusion. Electronically Signed: Eduardo Duenas, at 23:03 EST Tel , Service support ,
--- NOTE | 2020-08-07 21:38 | RAD_ITS ---
STUDY: X-RAY - PELVIS AND RIGHT HIP REASON FOR EXAM: Female, 84 years old. Right hip pain after falling. TECHNIQUE: 3 views of the pelvis and hip. COMPARISON: 10/05/2011 pelvic radiograph. FINDINGS: No visible fracture. No osseous destruction. Alignment anatomic. Mild degenerative changes of the hips, more prominent degenerative changes partially visible lumbar spine with left scoliosis.. No acute soft tissue abnormality. Calcific atherosclerosis. RAD/HIP, UNI W/ Pelvis 2-3 Views IMPRESSION: No acute osseous abnormality. Electronically Signed: Eduardo Duenas, at 23:06 EST Tel , Service support ,
--- NOTE | 2020-08-07 21:38 | CT_ITS ---
STUDY: CT CERVICAL SPINE WITHOUT CONTRAST REASON FOR EXAM: Female, 84 years old. Injury from falling. TECHNIQUE: High resolution transaxial imaging was performed without contrast material. Sagittal and coronal images were reconstructed. Individualized dose optimization techniques were used for this CT. COMPARISON: None FINDINGS: No fracture or dislocation of the cervical spine. Alignment anatomic. Multilevel degenerative changes but no evidence of high-grade spinal canal narrowing. No acute findings in the paraspinal soft tissues. No prevertebral hematoma. Calcific atherosclerosis. Mild interstitial prominence lung apices. CT/Spine Cervical without Contras IMPRESSION: No fracture or dislocation of the cervical spine. Electronically Signed: Eduardo Duenas, at 23:00 EST Tel , Service support ,
--- NOTE | 2020-08-07 21:40 | ED.DCSUM_ITS ---
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 Patient reportedly had an unwitnessed fall around 5 PM today, approximately 4-1/2 hours prior to arrival. She was complained of some right knee pain. She is also found to be hypoxic at 84% and placed on nasal cannula and sent to the ER for further evaluation. Apparently patient's been having some falls over the past few days. She has states she is been more short of breath and had a cough. She is complaining of some right knee and hip pain. She has no other complaints at this time. She currently denies any nausea or vomiting. She does not report any fever or chills. Per report, patient is ANO x2 at baseline. Past Medical History - Allergies and Home Meds Allergies/Adverse Reactions: Allergies infliximab [From Remicade] Allergy (Verified 02/12/20 23:00) Hives Penicillins Allergy (Verified 02/12/20 23:00) Hives methotrexate Adverse Reaction (Verified 02/12/20 23:00) Unknown Primary Care Physician: Bassam Brown DO [Primary Care Provider] - Past Medical History: - - Rheumatoid arthritis, chronic anemia, CKD 3, hypertension, hyperlipidemia, chronic diastolic heart failure, pulmonary hy pertension, valvular insufficiency Surgical History: cholecystectomy, - - Back surgery. Smoking Status: Never smoker - Family History Maternal Family History: Reports: No pertinent history, - Paternal Family History: Reports: No pertinent history Review of Systems General: Reports: Malaise. Denies: Chills, Fever, Sweats Eyes: Denies: Visual changes - bilaterally, Diplopia ENT: Denies: Rhinorrhea, Sore throat Cardiovascular: Denies: Chest pain, Palpitations Respiratory: Reports: Dyspnea, Cough. Denies: Dyspnea on exertion Gastrointestinal: Reports: Nausea. Denies: Abdominal pain, Vomiting, Diarrhea, Melena, Hematochezia Genitourinary: Denies: Dysuria, Hematuria, Frequency Musculoskeletal: Reports: Extremity Pain - Right hip/knee. Denies: Back pain Skin: Denies: Rash, Wounds Neurological: Reports: Weakness - Generalized. Denies: Headache, Numbness Physical Exam Vital Signs/Narrative: Vital Signs Temp Pulse Resp BP Pulse Ox 08/07/20 21:32 99.3 F H 67 15 168/105 H 89 Inital Vital Signs reviewed: Yes General: Well nourished, Well developed, No Acute Distress Head: Normocephalic, Atraumatic Eyes: Perrl, EOMI, Pale conjunctiva ENT: Moist mucous membranes, No rhinorrhea, TM's clear Neck: Supple, Nontender, No JVD, - - Normal range of motion, no step-off sign Cardiovascular: Regular rate, Regular rhythm, No murmurs Respiratory: No distress, Chest nontender, - - Diffuse crackles present, more pronounced at the bases. Negative for: Retractions Abdomen: Soft, Nontender, Nondistended, Normal bowel sounds Back: Nontender, Normal Inspection. Negative for: CVA tenderness, Spinal tenderness Extremities: Nontender, Edema - Nonpitting pedal edema bilaterally Skin: Normal color, No rash. Negative for: Trauma Neurological: Alert, Cranial nerves II-XII grossly intact, Normal Strength, Normal Sensation, Disoriented, Weakness - Generalized. Negative for: Left side facial droop, Right side facial droop Psychological: Normal affect, Normal Mood Diagnostic/Tx/Re-eval Chest X-Ray - ED: 1 View, Read by ED Physician, Read by Radiologist, No Acute Disease Clinical Impression(s) from Imaging Studies Brain CT 08/07/20 21:35 IMPRESSION: No evidence of intracranial injury or skull fracture. Electronically Signed: Eduardo Duenas, at 22:56 EST Tel , Service support , Cervical Spine CT 08/07/20 21:38 IMPRESSION: No fracture or dislocation of the cervical spine. Electronically Signed: Eduardo Duenas, at 23:00 EST Tel , Service support , Hip/Pelvis X-Ray 08/07/20 21:38 IMPRESSION: No acute osseous abnormality. Electronically Signed: Eduardo Duenas, at 23:06 EST Tel , Service support , Knee X-Ray 08/07/20 21:38 IMPRESSION: No acute osseous abnormality. Small joint effusion. Electronically Signed: Eduardo Duenas, at 23:03 EST Tel , Service support , Chest X-Ray 08/07/20 22:35 IMPRESSION: No acute findings. Electronically Signed: Eduardo Duenas, at 23:01 EST Tel , Service support , Laboratory Data 08/07/20 08/07/20 08/07/20 22:00 22:00 22:00 WBC 6.4 RBC 3.13 L Hgb 9.3 L Hct 29.9 L MCV 95.5 MCH 29.7 MCHC 31.1 L RDW Std Deviation 53.5 H RDW Coeff of Dre 15.4 H Plt Count 79 L MPV 12.9 H Immature Gran % (Auto) 0.600 Neut % (Auto) 79.1 H Lymph % (Auto) 6.1 L [place] % (Auto) 13.1 H Eos % (Auto) 0.6 Baso % (Auto) 0.5 Absolute Neuts (auto) 5.1 Absolute Lymphs (auto) 0.39 L Nucleated RBC % 0 Differential Comment SEE COMMENT Platelet Estimate MOD DEC RBC Morphology N CHROM Anisocytosis RARE Macrocytosis RARE Ovalocytes RARE PT 14.2 INR 1.1 APTT 37.7 H Sodium 141 Potassium 4.8 Chloride 110 H Carbon Dioxide 28.0 Anion Gap 3 L BUN 47 H Creatinine 1.74 H Estim Creat Clear Calc 19.91 Est GFR (MDRD) Af Amer 36 L Est GFR (MDRD) Non-Af 30 L BUN/Creatinine Ratio 27.0 H Glucose 91 Lactic Acid Calcium 8.4 L Total Bilirubin 0.60 AST 336 H ALT 142 H Alkaline Phosphatase 243 H Troponin I < 0.015 B-Natriuretic Peptide Total Protein 6.8 Albumin 3.3 Globulin 3.5 Albumin/Globulin Ratio 0.9 Urine Color Urine Clarity Urine pH Ur Specific [place] Urine Protein Urine Glucose (UA) Urine Ketones Urine Occult Blood Urine Nitrite Urine Bilirubin Urine Urobilinogen Ur Leukocyte Esterase Urine RBC Urine WBC Ur Squamous Epith Cells Urine Bacteria Urine Mucus Blood Type Antibody Screen 08/07/20 08/07/20 08/07/20 22:00 22:00 22:00 WBC RBC Hgb Hct MCV MCH MCHC RDW Std Deviation RDW Coeff of Dre Plt Count MPV Immature Gran % (Auto) Neut % (Auto) Lymph % (Auto) [place] % (Auto) Eos % (Auto) Baso % (Auto) Absolute Neuts (auto) Absolute Lymphs (auto) Nucleated RBC % Differential Comment Platelet Estimate RBC Morphology Anisocytosis Macrocytosis Ovalocytes PT INR APTT Sodium Potassium Chloride Carbon Dioxide Anion Gap BUN Creatinine Estim Creat Clear Calc Est GFR (MDRD) Af Amer Est GFR (MDRD) Non-Af BUN/Creatinine Ratio Glucose Lactic Acid 0.7 Calcium Total Bilirubin AST ALT Alkaline Phosphatase Troponin I B-Natriuretic Peptide 432.7 H Total Protein Albumin Globulin Albumin/Globulin Ratio Urine Color Urine Clarity Urine pH Ur Specific [place] Urine Protein Urine Glucose (UA) Urine Ketones Urine Occult Blood Urine Nitrite Urine Bilirubin Urine Urobilinogen Ur Leukocyte Esterase Urine RBC Urine WBC Ur Squamous Epith Cells Urine Bacteria Urine Mucus Blood Type O POSITIVE Antibody Screen NEGATIVE 08/07/20 22:50 WBC RBC Hgb Hct MCV MCH MCHC RDW Std Deviation RDW Coeff of Dre Plt Count MPV Immature Gran % (Auto) Neut % (Auto) Lymph % (Auto) [place] % (Auto) Eos % (Auto) Baso % (Auto) Absolute Neuts (auto) Absolute Lymphs (auto) Nucleated RBC % Differential Comment Platelet Estimate RBC Morphology Anisocytosis Macrocytosis Ovalocytes PT INR APTT Sodium Potassium Chloride Carbon Dioxide Anion Gap BUN Creatinine Estim Creat Clear Calc Est GFR (MDRD) Af Amer Est GFR (MDRD) Non-Af BUN/Creatinine Ratio Glucose Lactic Acid Calcium Total Bilirubin AST ALT Alkaline Phosphatase Troponin I B-Natriuretic Peptide Total Protein Albumin Globulin Albumin/Globulin Ratio Urine Color Yellow Urine Clarity Clear Urine pH 5.0 Ur Specific [place] 1.015 Urine Protein Negative Urine Glucose (UA) Normal Urine Ketones Negative Urine Occult Blood Negative Urine Nitrite Negative Urine Bilirubin Negative Urine Urobilinogen Normal Ur Leukocyte Esterase Negative Urine RBC 0 SEEN Urine WBC 0 SEEN Ur Squamous Epith Cells 0 SEEN Urine Bacteria 1+ Urine Mucus 0 SEEN Blood Type Antibody Screen - Rhythm Strip Rhythm Strip: Sinus Rhythm Rate: 55 Ectopy: None - EKG Initial EKG Interpretation: Sinus Bradycardia, - - Sinus bradycardia at a rate of 55 Left axis deviation LVH Normal intervals Normal ST segments - Medical Decision Making Patient is evaluated for falls as well as hypoxia. She appears pale but nontoxic on initial presentation. Patient is hypoxic when taken off nasal cannula and drops to the 80s. She is now oxygen at baseline. She had no IV signs of trauma but did have an unwitnessed fall earlier today as well as other falls earlier this week. She has some mild pain of her right knee and some pain with range of motion of the right hip but no obvious deformity. X-rays of the extremity do not show any acute process. Head CT and C-spine are obtained which are negative for acute process. Chest x-ray does not show any acute process including infiltrate or fluid overload. Patient does have a mild transaminitis and a lymphopenia. Her proBNP is elevated but chart view shows that she is at elevated proBNP is in the past. She has CKD and chronic anemia as well as thrombocytopenia which are relatively unchanged. Covid test is pending. Patient will require admission for her hypoxia and falls however the exact cause is not clear. Differential includes COVID-19 infection or fluid overload/CHF exacerbation. Hospitalist will follow on these result and treat accordingly. ED Disposition - Plan for ED Patient: Disposition: Acute Care [facility] Diagnosis: Hypoxia, Falls, Suspected COVID-19 virus infection, Transaminitis Referrals: Bassam Brown DO [Primary Care Provider] -
[2020-08-07] MEDS: Ondansetron 4 MG/2 ML Vial IV (21:59)
[2020-08-07 22:20] LABS: Absolute Lymphocyte Count 0.39 X10^3/uL (0.83-4.51); Absolute Neutrophil Count 5.1 X10^3/uL (2.0-7.7); Basophil# 0.03 X10^3/uL; Basophil% 0.5 % (0-1); Eosinophil# 0.04 X10^3/uL; Eosinophils% 0.6 % (0-5); Hematocrit 29.9 % (37-47); Hemoglobin 9.3 g/dL (12.0-15.0); Lymphocyte # 0.39 X10^3/ul (4.0); Lymphocyte % 6.1 % (19-41); Mean Corp Hgb Conc 31.1 g/dL (32-36); Mean Corpuscular Hgb 29.7 pg (27.0-32.0); Mean Corpuscular Volume 95.5 fL (81-99); Mean Platelet Vol. 12.9 fl (6.2-12.0); Monocyte# 0.84 X10^3/uL; Monocyte% 13.1 % (0-10); NRBC Flagged by Analyzer 0 % (0-5); Neutrophil # 5.09 X10^3/uL (2.7-7.7); Neutrophil % 79.1 % (47-70); POSITIVE COUNT YES; POSITIVE DIFFERENTIAL YES; POSITIVE MORPHOLOGY YES; Platelet Count 79 K/mm3 (150-450); RBC Distribution Width CV 15.4 % (11.6-14.6); RBC Distribution Width SD 53.5 fl (35.1-43.9); Red Blood Count 3.13 M/mm3 (4.2-5.4); White Blood Count 6.4 K/mm3 (4.4-11.0)
[2020-08-07 22:28] LABS: International Normalized Ratio 1.1; Partial Thromboplast Time 37.7 Seconds (24.1-36.2); Prothrombin Time (Protime)PT. 14.2 SECONDS (11.7-14.9)
[2020-08-07 22:35] LABS: ALB/GLOB Ratio 0.9 RATIO (0.9-2.4); AST(SGOT) 336 U/L (15-37); Alanine Aminotransfer ALT/SGPT 142 U/L (13-56); Albumin, Serum 3.3 g/dL (3.2-5.0); Alkaline Phosphatase 243 U/L (45-117); Anion Gap 3 (5-15); BUN 47 mg/dL (7-18); Calcium,Total 8.4 mg/dL (8.5-10.1); Chloride 110 mmol/L (98-107); Creatinine, Serum 1.74 mg/dL (0.55-1.02); Differential Indicated SCAN CRITERIA MET; EST Glomerular Filtration Rate 30 mL/min (>60); Est Glom Filt Rate - Afr Amer 36 mL/min (>60); Estimated Creatinine Clearance 19.91 ml/min; Globulin 3.5 g/dL (2.2-4.2); Glucose 91 mg/dL (74-106); Potassium 4.8 mmol/L (3.5-5.1); Protein, Total 6.8 g/dL (6.4-8.2); Sodium Level 141 mmol/L (136-145)
--- NOTE | 2020-08-07 22:35 | RAD_ITS ---
STUDY: X-RAY CHEST REASON FOR EXAM: Female, 84 years old. Injury from falling. Cough. TECHNIQUE: AP supine COMPARISON: 02/12/2020 CXR FINDINGS: No evidence of pneumonia, pulmonary edema, pneumothorax or pleural effusion. Elevation right hemidiaphragm with overlying atelectasis again demonstrated. Cardiac silhouette, hilar and mediastinal contours with no acute findings. Heart size normal. Calcified mitral annulus. Atherosclerosis of the thoracic aorta. Degenerative osseous changes with no acute osseous abnormality. Mild S-shaped scoliosis. RAD/Chest 1 View (Portable) IMPRESSION: No acute findings. Electronically Signed: Eduardo Duenas, at 23:01 EST Tel , Service support ,
[2020-08-07 22:38] VITALS: O2SAT 88
[2020-08-07 22:42] LABS: BNP,B-Type NATRIURETIC PEPTIDE 432.7 pg/mL (0-100)
[2020-08-07 22:43] LABS: Lactic Acid 0.7 mmol/L (0.4-1.9)
[2020-08-07 22:55] LABS: Mucous, Urine 0 SEEN /hpf (<or=2+); Red Blood Cells-Urine 0 SEEN /hpf (0-5); Squamous Epithelial Cells - UA 0 SEEN /hpf (5-10); White Blood Cells 0 SEEN /hpf (0-5)
[2020-08-07 22:57] LABS: Color, Urine Yellow (Yellow); Glucose, Dipstick Normal (Normal); Ketone-Dipstick Negative (Negative); Leukocyte Esterase-Dipstick Negative /ul (Negative); Nitrite-Dipstick Negative (Negative); Occult Blood-Urine Negative /ul (Negative); Protein-Dipstick Negative (Negative); Specific Gravity, Urine 1.015 (1.002-1.030); Urine Bilirubin Dipstick Negative (Negative); Urine Clarity Clear (Clear); Urine Urobilinogen Normal (Normal)
[2020-08-07 23:02] LABS: Anisocytosis RARE; Macrocytosis RARE; Ovalocyte RARE; Platelet Estimate MOD DEC (ADEQ); Red Cell Morphology N CHROM NORMAL (NORM C&C)
[2020-08-07 23:11] LABS: Bacteria 1+ /hpf (None Seen)
--- NOTE | 2020-08-07 23:24 | HP.PCM_ITS ---
Problem List (1) CHF exacerbation Status: Acute Qualifiers: Heart failure type: diastolic Qualified Code(s): I50.33 - Acute on chronic diastolic (congestive) heart failure (2) Pulmonary embolism Status: Suspected Qualifiers: Pulmonary embolism type: unspecified Chronicity: acute Acute cor pulmonale presence: unspecified Qualified Code(s): I26.99 - Other pulmonary embolism without acute cor pulmonale (3) Hypoxia Status: Acute (4) HTN (hypertension) Status: Chronic Qualifiers: Hypertension type: essential hypertension Qualified Code(s): I10 - Essential (primary) hypertension (5) Hyperlipidemia Status: Chronic Qualifiers: Hyperlipidemia type: unspecified Qualified Code(s): E78.5 - Hyperlipidemia, unspecified (6) CKD (chronic kidney disease), stage III Status: Chronic (7) Chronic anemia Status: Chronic (8) Chronic pain syndrome Status: Chronic (9) Depression Status: Chronic Qualifiers: Depression Type: unspecified Qualified Code(s): F32.9 - Major depressive disorder, single episode, unspecified (10) Rheumatoid arthritis Status: Chronic Qualifiers: Rheumatoid arthritis location: unspecified site Rheumatoid factor presence: unspecified presence Qualified Code(s): M06.9 - Rheumatoid arthritis, unspecified (11) Peripheral neuropathy Status: Chronic Qualifiers: Peripheral neuropathy type: polyneuropathy, unspecified Qualified Code(s): G62.9 - Polyneuropathy, unspecified History of Present Illness Date of Admission: 08/07/20 Chief Complaint: Falls, Dyspnea, Cough. The patient is a 84 y/o F w/ PMHx: Chronic thrombocytopenia, CKD stage IV, Chronic pain syndrome, Chronic Diastolic CHF, HTN, HLD, Valvular heart disease, Rheumatoid arthritis, Chronic anemia, Depression who presents to the [facility] ED on 08/07/20 with history of recent increased falls, hypoxia with recent mild nonproductive cough, noted dyspnea with primarily exertion as well as lower extremity swelling to her ankles and specifically noted fall most recently on day of ED presentation at ~ 5 pm with complaint of R knee pain with no recent fever, chills, nausea, emesis, diarrhea, alteration of sense of taste or smell. Upon evaluation in the ED patient does have left lower extremity greater than right swelling. Work-up in the ED included T 99.3, heart rate 67, BP initially 141/79 with repeat 168/105, respiratory rate 16, initially noted to be 88% on room air with improvement to 99% on 2 L nasal cannula, CBC with WBC 6.4, hemoglobin 9.3, platelets 79 with lymphopenia noted, coags with PTT 37.7, INR 1.1, PT 14.2, CMP with chloride 110, BUN/creatinine 47/1.74, lactic acid 0.7, AST/ALT 336/142, alk phos 243, troponin less than 0.015, BNP 432.7, urinalysis not marked appearing, Covid testing negative, type and screen pending upon requested evaluation of patient, CT of the brain with no acute intracranial findings, CT cervical spine with no fracture or dislocation of the cervical spine, plain film of the hip and pelvis with no acute osseous abnormality, plain film of the right knee with a small joint effusion otherwise no acute osseous abnormality, chest x-ray with no acute cardiopulmonary findings, EKG with sinus bradycardia with no acute evidence of ischemia. In the ED patient administered Zofran therapy. Past Medical History Past Medical History (Chronic Problems): Chronic Problems (Last Reviewed 09/08/19 @ 13:21 by Shyann Eldridge) Nonrheumatic mitral (valve) insufficiency (Chronic) Mild (1+) per echo 03/20/2017 Nonrheumatic aortic (valve) insufficiency (Chronic) Mild (1+) per echo 03/20/2017 Nonrheumatic tricuspid (valve) insufficiency (Chronic) Mild (1+) per echo 03/20/2017 Secondary pulmonary hypertension (Chronic) Chronic diastolic (congestive) heart failure (Chronic) HTN (hypertension) (Chronic) Hyperlipidemia (Chronic) CKD (chronic kidney disease), stage III (Chronic) Chronic anemia (Chronic) Chronic pain syndrome (Chronic) Depression (Chronic) Rheumatoid arthritis (Chronic) Peripheral neuropathy (Chronic) Elevated hemidiaphragm (Chronic) Medical History: Medical History (Last Reviewed 09/08/19 @ 13:21 by Shyann Eldridge) Nonrheumatic mitral (valve) insufficiency (Chronic) I34.0 Mild (1+) per echo 03/20/2017 Nonrheumatic aortic (valve) insufficiency (Chronic) I35.1 Mild (1+) per echo 03/20/2017 Nonrheumatic tricuspid (valve) insufficiency (Chronic) I36.1 Mild (1+) per echo 03/20/2017 Secondary pulmonary hypertension (Chronic) Chronic diastolic (congestive) heart failure (Chronic) I50.32 HTN (hypertension) (Chronic) I10 Hyperlipidemia (Chronic) E78.5 CKD (chronic kidney disease), stage III (Chronic) N18.3 Chronic anemia (Chronic) D64.9 Chronic pain syndrome (Chronic) G89.4 Depression (Chronic) F32.9 Rheumatoid arthritis (Chronic) M06.9 Peripheral neuropathy (Chronic) G62.9 Elevated hemidiaphragm (Chronic) J98.6 Acute diastolic (congestive) heart failure (Resolved) I50.31 Acute kidney injury (Resolved) N17.9 Acute respiratory failure (Resolved) J96.00 Altered mental status (Resolved) R41.82 Allergies infliximab [From Remicade] Allergy (Verified 02/12/20 23:00) Hives Penicillins Allergy (Verified 02/12/20 23:00) Hives methotrexate Adverse Reaction (Verified 02/12/20 23:00) Unknown Home Medications: Ambulatory Orders Medication Instructions Recorded Aspirin E.C. [Ecotrin] 81 mg PO DAILY@0800 07/14/13 Omeprazole [Prilosec] 40 mg PO BID 07/14/13 Fluoxetine [Prozac] 20 mg PO DAILY 10/11/16 Leflunomide [Arava] 20 mg PO DAILY 12/03/16 Hydroxychloroquine [Plaquenil] 200 mg PO BIDCM 02/01/17 Pregabalin [Lyrica] 225 mg PO BID 02/01/17 Oxycodone CR [Oxycontin] 30 mg PO Q12H 02/14/18 furosemide 20 mg tablet 20 mg PO DAILY 05/12/19 Amlodipine [Norvasc] 5 mg PO DAILY 02/12/20 Donepezil HCl [Aricept] 5 mg PO DAILY 02/12/20 Ergocalciferol [Vitamin D] 1.25 mg PO .COMPLEX 02/12/20 Ketorolac Tromethamine 5 ml OP 4X/DAY 02/12/20 Ondansetron [Zofran Odt] 4 mg PO Q8H PRN PRN 02/12/20 Peppermint Oil 50 mg PO DAILY 02/12/20 carvedilol 12.5 mg tablet 12.5 mg PO BID #180 tab 04/18/20 Surgical History: Surgical History (Last Updated 09/08/19 @ 13:22 by Shyann Eldridge) History of colonoscopy Onset Date: ~2018 Z98.890 Kidney stones N20.0 S/P laparoscopic cholecystectomy Z90.49 Previous back surgery Z98.890 Surgical History: cholecystectomy, - - Lumbar back surgery, cholecystectomy, intervention for renal stones. 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 Denies: Anorexia, Chills, Fever, Weight Change HEENT: Denies: Head Aches, Sinus Congestion, Sinus Drainage Cardiovascular: Reports: Edema. Denies: Chest Pain, Chest Pressure, Chest Tightness, Palpitations Respiratory: Reports: Cough, Shortness of breath upon exertion. Denies: Shortness of Breath, Shortness of breath at rest, Sputum production, Wheezing Gastrointestinal: Denies: Abdominal Pain, Nausea, Vomiting Genitourinary: Denies: Dysuria Musculoskeletal: Reports: Joint Pain, Muscle pain. Denies: Joint Tenderness Skin: Denies: Rash, Wounds Neurological: Denies: Numbness, Tingling, Focal weakness Psychiatric: Reports: Depression. Denies: Anxiety, Homicidal Ideations, Suicidal Ideations Hematologic/ Lymphatic: Reports: Anemia, Easy Bruising, Easy Bleeding VTE Information - Inpt Only VTE Present on Admission: No VTE Mechan Device Prophylaxis: SCD's VTE Pharm Prophylaxis ordered?: Yes Patient Problems: Active and Suspected Problems (Last Reviewed 09/08/19 @ 13:21 by Shyann Eldridge) Hypoxia (Acute) Falls (Acute) Suspected COVID-19 virus infection (Acute) Transaminitis (Acute) Subjective: Patient laying in the ED bed, fatigued appearing, no acute distress, oxygenation improved with supplemental oxygen. Objective: Physical Examination: General: awake, alert, oriented x 3 and cooperative, seated upright in the ED bed, mildly fatigued appearing, no acute distress. Skin: normal color, turgor, no icterus, cyanosis. HEENT: AT/NC, EOMI, PERRLA, dry MM, no carotid bruits, +JVD noted. Lungs: Diminished breath sounds, greater bilateral bases, moderate effort, no severe rales noted, no rhonchi or wheezing. Heart: Bradycardic with regular rhythm; no gallop, rub audible. Abdomen: soft, NTTP, ND, normal BS, no HSM. Extremities: no cyanosis or clubbing, noted bilateral pedal to ankle pitting edema, left decently increased from right and some discomfort with palpation of the left lower calf region. Neurological: patient awake, alert, oriented as noted; cognitive function suspect baseline intact; pupils equally reactive to light and accomodation; cranial nerves II-XII grossly normal, moving all 4 extremities, no focal deficits, strength moderately to severely global decrease secondary to acute presentation. Psychiatric: affect appears fatigued otherwise normal, no acute evidence of depressive or anxiety feelings. She was bradycardic - Physical Exam Vitals/I&O's: Vital Signs Temp Pulse Resp BP Pulse Ox 99.3 F H 67 15 168/105 H 88 08/07/20 21:32 08/07/20 21:32 08/07/20 21:32 08/07/20 21:32 08/07/20 22:38 Oxygen Flow Rate (L/min) 2 Oxygen Delivery Method Room Air Weight: 117 lb 8.102 oz Body Mass Index (BMI) 20.8 Laboratory Results 08/07/20 21:45: COVID-19 (DILMA) Pending 08/07/20 22:00: WBC 6.4, RBC 3.13 L, Hgb 9.3 L, Hct 29.9 L, MCV 95.5, MCH 29.7, MCHC 31.1 L, RDW Std Deviation 53.5 H, RDW Coeff of Dre 15.4 H, Plt Count 79 L, MPV 12.9 H, Immature Gran % (Auto) 0.600, Neut % (Auto) 79.1 H, Lymph % (Auto) 6.1 L, Rolette % (Auto) 13.1 H, Eos % (Auto) 0.6, Baso % (Auto) 0.5, Absolute Neuts (auto) 5.1, Absolute Lymphs (auto) 0.39 L, Nucleated RBC % 0, Differential Comment SEE COMMENT, Platelet Estimate MOD DEC, RBC Morphology N CHROM, Anisocytosis RARE, Macrocytosis RARE, Ovalocytes RARE 08/07/20 22:00: PT 14.2, INR 1.1, APTT 37.7 H 08/07/20 22:00: Sodium 141, Potassium 4.8, Chloride 110 H, Carbon Dioxide 28.0, Anion Gap 3 L, BUN 47 H, Creatinine 1.74 H, Estim Creat Clear Calc 19.91, Est GFR (MDRD) Af Amer 36 L, Est GFR (MDRD) Non-Af 30 L, BUN/Creatinine Ratio 27.0 H , Glucose 91, Calcium 8.4 L, Total Bilirubin 0.60, AST 336 H, ALT 142 H, Alkaline Phosphatase 243 H, Troponin I < 0.015, Total Protein 6.8, Albumin 3.3, Globulin 3.5, Albumin/Globulin Ratio 0.9 08/07/20 22:00: Lactic Acid 0.7 08/07/20 22:00: B-Natriuretic Peptide 432.7 H 08/07/20 22:00: Blood Type Pending, Antibody Screen Pending 08/07/20 22:50: Urine Color Yellow, Urine Clarity Clear, Urine pH 5.0, Ur Specific Spencer 1.015, Urine Protein Negative, Urine Glucose (UA) Normal, Urine Ketones Negative, Urine Occult Blood Negative, Urine Nitrite Negative, Urine Bilirubin Negative, Urine Urobilinogen Normal, Ur Leukocyte Esterase Negative, Urine RBC 0 SEEN, Urine WBC 0 SEEN, Ur Squamous Epith Cells 0 SEEN, Urine Bacteria 1+, Urine Mucus 0 SEEN Assessment/Plan All Active Problems (Last Reviewed 09/08/19 @ 13:21 by Shyann Eldridge) Hypoxia (Acute) Falls (Acute) Suspected COVID-19 virus infection (Acute) Transaminitis (Acute) CHF exacerbation (Acute) Change in bowel habits (Acute) Generalized abdominal pain (Acute) Diarrhea, unspecified (Acute) Acute diastolic (congestive) heart failure (Resolved) Acute kidney injury (Resolved) Acute respiratory failure (Resolved) Altered mental status (Resolved) The patient is a 84 y/o F w/ PMHx: Chronic thrombocytopenia, CKD stage IV, Chronic pain syndrome, Chronic Diastolic CHF, HTN, HLD, Valvular heart disease, Rheumatoid arthritis, Chronic anemia, Depression who presents to the [facility] ED on 08/07/20 with history of recent increased falls, hypoxia with recent mild nonproductive cough, noted dyspnea with primarily exertion as well as lower extremity swelling to her ankles and specifically noted fall most recently on day of ED presentation at ~ 5 pm with complaint of R knee pain with no recent fever, chills, nausea, emesis, diarrhea, alteration of sense of taste or smell. 1. ? Acute Decompensated Diastolic CHF: CXR obtained in the ED w/ no obvious acute cardiopulmonary findings with mildly elevated BNP. Patient administered IV lasix in the ED, will admit to PCU, maintain on cardiac telemetry, obtain cardiac enzyme series, obtain serial EKGs, continue IV lasix diuresis, monitor I/Os, continue medical therapy including aspirin, Coreg, not on CARMELLA inhibitor or ARB or statin therapy, obtain TSH and magnesium level, ECHO. PRN morphine to decrease afterload, continue oxygen supplementation, if necessary will position w/ upright position with legs off bed to decrease preload. We will also continue as noted evaluation for #2 as may be component also. 2. Left greater than right lower extremity edema: Possibly associated with #1 but given patient's presentation D-dimer obtained and notably elevated, will attempt to maintain on heparin drip but will need to closely monitor platelet levels and may need to hold pending duplex ultrasound in a.m. given patient significant renal disease. May need to consider if appropriate VQ scan. 3. Elevated LFTs, likely associated with acute presentation #1. Admission AST/ALT 336/142, alk phos 243, continue treatment as noted, repeat CMP in a.m. 4. Chronic pain syndrome, Chronic back pain: We will continue patient home Lyrica regimen with hold parameters as needed for sedation. 5. Chronic thrombocytopenia: Admission platelets 79, decreased from prior noted with normal range 115-140s, possibly associate with acute presentation as noted, cautiously utilize chemoprophylaxis, repeat CBC in AM. 6. Chronic Kidney Disease Stage IV: Admission BUN/Cr 47/1.74, baseline renal function 1.5-1.8, repeat BMP in AM. 7. Anxiety and depression: We will continue patient home Prozac regimen. 8. Dementia, unclear type with unclear behavioral disturbance history: We will continue patient home Aricept regimen, maintain on fall precautions, does complicate presentation. 9. Rheumatoid arthritis: We will continue patient home Plaquenil as well as leflunomide regimen. 10. Hypertension: Continue home regimen including Coreg, Norvasc, Lasix with hold parameters, PRN hydralazine. 11. Hyperlipidemia: Not on regimen, defer to outpatient. 12. GERD: We will maintain on home PPI. 13. DVT prophylaxis: SCDs, heparin drip as noted pending duplex ultrasound given left greater than right edema. 14. CODE status: Patient TARA is her daughter Neisha Schulz and living will is currently in place. Discussed CODE status at length including difference between FULL code, DNR-CCA and DNR-CC status. Following discussions about the differences in these status, requested DNR-CCA, no intubation status. Discussed patient presentation Advanced Care Planning Face to Face Time: 16 minutes. Inpatient E&M: 92845 Init Hosp L3 Procedures: 14728 Advncd Care Plan 30 Min
[2020-08-07 23:36] VITALS: BP 140/47; PULSE 52; RESP 13; TEMP 37.6; O2SAT 100
[2020-08-08] VITALS (14 sets, daily range): BP systolic 91–172; BP diastolic 47–70; PULSE 41–57; RESP 16–18; TEMP 36.3–37.2; O2SAT 94–100; BMI 19.0; BMI 19.4; BMI 19.8
--- NOTE | 2020-08-08 00:48 | ECHOD_ITS ---
Reason For Study: ARRHYTHYMIA Procedure This was a 2D Doppler, Color Flow transthoracic echocardiogram. Exam performed portable in patient room. Left Ventricle Normal LV size. Mild concentric left ventricular hypertrophy. Left ventricular systolic function is normal. The estimated ejection fraction is 55 %. Stage 2 diastolic dysfunction. No regional wall motion abnormalities noted. Right Ventricle Normal RV size. Normal systolic function. Atria Normal left atrium. Normal right atrium. Mitral Valve There is moderate to severe mitral annular calcification. Mild-Moderate (1-2+) eccentric mitral valve insufficiency. Tricuspid Valve Normal tricuspid valve. Mild to moderate (1-2+) tricuspid valve insufficiency. Pulmonary artery systolic pressure is 46 mmHg. Aortic Valve Trisinus/trileaflet aortic valve. Moderate focal aortic valve calcification. Peak aortic valve gradient 27 mmHg. Mean aortic valve gradient 16 mmHg. Mild aortic stenosis. Mild (1+) aortic valve insufficiency. Pulmonic Valve Normal pulmonic valve. Great Vessels Calcified aortic root. The pulmonary artery is normal size. Normal inferior vena cava. Pericardium/Pleural No pericardial effusion. MMode/2D Measurements & Calculations LVIDd: 4.1 cm IVSd: 1.3 cm LVOT diam: 2.0 cm LVIDs: 2.8 cm LVPWd: 1.3 cm LVOT area: 3.1 cm2 RVDd: 3.7 cm FS: 31.8 % Ao root diam: 3.2 cm LAV(MOD-bp): 47.3 ml LVAd ap4: 28.5 cm2 LAV(MOD-bp) Indexed: 32.2 ml/m2 EDV(MOD-sp4): 93.9 ml LAV(MOD-sp2): 55.4 ml EDV(sp4-el): 99.8 ml LAV(MOD-sp4): 37.8 ml LVAs ap4: 13.7 cm2 ESV(MOD-sp4): 28.1 ml ESV(sp4-el): 28.4 ml EF(MOD-sp4): 70.1 % EF(sp4-el): 71.6 % SV(MOD-sp4): 65.8 ml SV(sp4-el): 71.5 ml LA A4 area: 15.1 cm2 LA dimension(2D): 5.2 cm RA A4 area: 12.0 cm2 Time Measurements MV dec time: 0.26 sec Doppler Measurements & Calculations MV E max josé miguel: 138.7 cm/sec Lat Peak E' José Miguel: 8.9 cm/sec Med Peak E' José Miguel: 5.8 cm/sec MV A max josé miguel: 103.1 cm/sec E/E' lat: 15.5 E/E' med: 23.8 MV E/A: 1.3 Ao V2 max: 258.1 cm/sec AI max josé miguel: 447.3 cm/sec LV V1 max: 134.0 cm/sec Ao max P.7 mmHg AI max P.0 mmHg LV V1 max P.2 mmHg Ao V2 mean: 191.8 cm/sec LV V1 mean P.3 mmHg Ao mean P.9 mmHg AI dec slope: 263.9 cm/sec2 LV V1 mean: 84.2 cm/sec Ao V2 VTI: 69.0 cm AI P1/2t: 496.5 msec LV V1 VTI: 32.9 cm FALLON(I,D): 1.5 cm2 FALLON(V,D): 1.6 cm2 SV(LVOT): 102.5 ml PA V2 max: 117.2 cm/sec TR max josé miguel: 324.3 cm/sec TR max P.1 mmHg Interpretation Summary Normal LV size. Mild concentric left ventricular hypertrophy. Left ventricular systolic function is normal. The estimated ejection fraction is 55 %. There is moderate to severe mitral annular calcification. Mild-Moderate (1-2+) eccentric mitral valve insufficiency. Moderate focal aortic valve calcification. Mean aortic valve gradient 16 mmHg. Mild aortic stenosis. Stage 2 diastolic dysfunction. Ordering Physician: Coral Rene Referring Physician: SHLOMO NAYAK Performed By: Gracie Escalante RDCS
[2020-08-08 01:16] LABS: D-Dimer Quantitative (DVT/PE) 7.09 FEU/ug/m (0.27-0.49)
--- NOTE | 2020-08-08 01:17 | VDLE_ITS ---
Reason For Study: Pulmonary embolism RIGHT LEFT GSV is normal. GSV is normal. CFV is compressible, spontaneous, phasic, CFV is compressible, spontaneous, phasic, competent and demonstrates normal competent, and demonstrates normal augmentation. augmentation. FV is compressible, spontaneous, phasic, FV is compressible, spontaneous, phasic, competent and demonstrates normal competent and demonstrates normal augmentation. augmentation. POP V is compressible, spontaneous, phasic, POP V is compressible, spontaneous, phasic, competent and demonstrates normal competent and demonstrates normal augmentation. augmentation. T/P Trunk is compressible. T/P Trunk is compressible. PTV is compressible. PTV is compressible. RT PerV is compressible. LT PerV is compressible. Procedure This is a venous duplex using B-mode, color flow and spectral Doppler. Exam performed portable in patient room. A preliminary report was called and/or faxed to [facility]. Interpretation Summary No evidence for acute deep venous thrombosis bilateral lower extremities with patent and compressible bilateral great saphenous veins. Ordering Physician: Coral Rene Referring Physician: Bassam Brown Performed By: Tonya Zapata RVT
[2020-08-08 01:30] LABS: Ferritin 621 ng/mL (8-252); LDH 447 U/L (84-246)
[2020-08-08 01:47] LABS: Procalcitonin 0.71 ng/mL (0.00-0.09)
[2020-08-08] MEDS: Furosemide 40 MG/4 ML Vial IV ×3 (02:35→17:41)
[2020-08-08] MEDS: HEPARIN/D5w 25,000 UNITS 25,000 UNITS/250 ML IV.SOLN. 7 UNITS IV (02:56)
[2020-08-08] MEDS: Heparin Injection (Vial) 5,000 UNIT/ML VIAL 3500 UNIT IV (03:02)
[2020-08-08 05:38] LABS: Absolute Lymphocyte Count 0.86 X10^3/uL (0.83-4.51); Absolute Neutrophil Count 4.1 X10^3/uL (2.0-7.7); Basophil# 0.04 X10^3/uL; Basophil% 0.7 % (0-1); Eosinophil# 0.15 X10^3/uL; Eosinophils% 2.5 % (0-5); Hematocrit 25.8 % (37-47); Lymphocyte # 0.86 X10^3/ul (4.0); Lymphocyte % 14.2 % (19-41); Mean Corpuscular Hgb 29.7 pg (27.0-32.0); Mean Corpuscular Volume 95.9 fL (81-99); Mean Platelet Vol. 12.7 fl (6.2-12.0); Monocyte# 0.89 X10^3/uL; Monocyte% 14.7 % (0-10); NRBC Flagged by Analyzer 0 % (0-5); Neutrophil # 4.08 X10^3/uL (2.7-7.7); Neutrophil % 67.4 % (47-70); POSITIVE COUNT YES; POSITIVE MORPHOLOGY YES; Platelet Count 66 K/mm3 (150-450); RBC Distribution Width CV 15.5 % (11.6-14.6); RBC Distribution Width SD 54.2 fl (35.1-43.9); Red Blood Count 2.69 M/mm3 (4.2-5.4); White Blood Count 6.1 K/mm3 (4.4-11.0)
[2020-08-08 05:43] LABS: Differential Indicated SCAN CRITERIA MET
--- NOTE | 2020-08-08 05:55 | EKG12_ITS ---
Test Reason : BESS Blood Pressure : / mmHG Vent. Rate : 043 BPM Atrial Rate : 043 BPM P-R Int : 186 ms QRS Dur : 124 ms QT Int : 514 ms P-R-T Axes : 067 -41 003 degrees QTc Int : 434 ms Marked sinus bradycardia Left axis deviation Left bundle branch block Abnormal ECG When compared with ECG of 08-AUG-2020 04:39, MANUAL COMPARISON REQUIRED, DATA IS UNCONFIRMED Confirmed by NELSY LARES, TACHO ([id number]), image editor SHANIQUA MCKEON ([id number]) on 08/09/2020 11:10:46 AM Referred By: WENDI Confirmed By:TACHO WHITTINGTON MD
[2020-08-08 06:12] LABS: Differential Comment SCANNED
[2020-08-08 06:20] LABS: ALB/GLOB Ratio 0.8 RATIO (0.9-2.4); AST(SGOT) 146 U/L (15-37); Alanine Aminotransfer ALT/SGPT 100 U/L (13-56); Albumin, Serum 2.7 g/dL (3.2-5.0); Alkaline Phosphatase 178 U/L (45-117); Anion Gap 7 (5-15); BUN 48 mg/dL (7-18); BUN/Creat Ratio 29.4 RATIO (10-20); Calcium,Total 7.8 mg/dL (8.5-10.1); Chloride 108 mmol/L (98-107); Cholesterol 101 mg/dL (200); Creatinine, Serum 1.63 mg/dL (0.55-1.02); EST Glomerular Filtration Rate 32 mL/min (>60); Est Glom Filt Rate - Afr Amer 39 mL/min (>60); Estimated Creatinine Clearance 19.87 ml/min; Globulin 3.3 g/dL (2.2-4.2); Glucose 78 mg/dL (74-106); High Density Lipoprotein 55 mg/dL; Potassium 4.3 mmol/L (3.5-5.1); Sodium Level 141 mmol/L (136-145); T4 Free Direct 1.22 ng/dL (0.76-1.46); Thyroid Stim Hormone (TSH) 0.71 uIU/mL (0.358-3.74); Triglycerides 48 mg/dL; Very Low Density Lipoprotein 10 mg/dL (5-40)
--- NOTE | 2020-08-08 07:41 | PCM.PN.HOSP ---
Patient Problems: Active and Suspected Problems (Last Reviewed 09/08/19 @ 13:21 by Shyann Eldridge) Hypoxia (Acute) Falls (Acute) Suspected COVID-19 virus infection (Acute) Transaminitis (Acute) CHF exacerbation (Acute) Pulmonary embolism (Suspected) Reason for Visit: Follow-up on hypoxia/acute decompensated CHF Subjective: Was seen and examined. She stated that she was feeling improved. Denied any dizziness or chest pain. No acute events overnight. Objective: Physical exam: Vitals/I&O's: Vital Signs Temp Pulse Resp BP Pulse Ox 99.0 F 57 L 16 172/47 H 99 08/08/20 01:30 08/08/20 01:52 08/08/20 04:41 08/08/20 01:30 08/08/20 04:41 Oxygen Flow Rate (L/min) 2 Oxygen Delivery Method Nasal Cannula Weight: 49 kg Body Mass Index (BMI) 19.4 General: Alert, Oriented x3, Cooperative, No apparent distress HEENT: Atraumatic, PERRLA, EOMI, Normocephalic Neck: Supple Lungs: Diminished, Rales - few rales at lung bases Cardiovascular: Regular rate, Regular Rhythm, Normal S1, Normal S2, No murmurs Abdomen: Bowel Sounds Present, Soft, Non Tender, Non-Distended, No Hepato-splenomegaly Extremities: No edema Skin: No rashes, No breakdown Musculoskeletal: No Tenderness to Palpation of Joints or Extremities Lymphatic: No Cervical, Supraclavicular, or Inguinal Adenopathy Neurological: Cranial nerves II-XII grossly intact, Neuro grossly intact Psych/Mental Status: Normal Affect, Appropriate Microbiology Past 72 Hours 08/08/20 05:02 Urine, Clean Catch Legionella Antigen - Final 08/08/20 05:02 Urine, Clean Catch Streptococcus pneumoniae Antigen (M - Final 08/07/20 21:45 Mucosa - Nasopharyngeal Respiratory Panel (PCR) - Final Laboratory Results 08/07/20 21:45: COVID-19 (DILMA) Not Detected 08/07/20 22:00: WBC 6.4, RBC 3.13 L, Hgb 9.3 L, Hct 29.9 L, MCV 95.5, MCH 29.7, MCHC 31.1 L, RDW Std Deviation 53.5 H, RDW Coeff of Dre 15.4 H, Plt Count 79 L, MPV 12.9 H, Immature Gran % (Auto) 0.600, Neut % (Auto) 79.1 H, Lymph % (Auto) 6.1 L, [place] % (Auto) 13.1 H, Eos % (Auto) 0.6, Baso % (Auto) 0.5, Absolute Neuts (auto) 5.1, Absolute Lymphs (auto) 0.39 L, Nucleated RBC % 0, Differential Comment SEE COMMENT, Platelet Estimate MOD DEC, RBC Morphology N CHROM, Anisocytosis RARE, Macrocytosis RARE, Ovalocytes RARE 08/07/20 22:00: PT 14.2, INR 1.1, APTT 37.7 H 08/07/20 22:00: Sodium 141, Potassium 4.8, Chloride 110 H, Carbon Dioxide 28.0, Anion Gap 3 L, BUN 47 H, Creatinine 1.74 H, Estim Creat Clear Calc 19.91, Est GFR (MDRD) Af Amer 36 L, Est GFR (MDRD) Non-Af 30 L, BUN/Creatinine Ratio 27.0 H, Glucose 91, Calcium 8.4 L, Total Bilirubin 0.60, AST 336 H, ALT 142 H, Alkaline Phosphatase 243 H, Troponin I < 0.015, Total Protein 6.8, Albumin 3.3, Globulin 3.5, Albumin/Globulin Ratio 0.9 08/07/20 22:00: Lactic Acid 0.7 08/07/20 22:00: B-Natriuretic Peptide 432.7 H 08/07/20 22:00: Blood Type O POSITIVE, Antibody Screen NEGATIVE 08/07/20 22:00: D-Dimer Quant (PE/DVT) 7.09 H* 08/07/20 22:00: Magnesium 2.0, Ferritin 621 H, Lactate Dehydrogenase 447 H, C-React Prot Ext Range 31.80 H 08/07/20 22:00: Procalcitonin 0.71 H 08/07/20 22:50: Urine Color Yellow, Urine Clarity Clear, Urine pH 5.0, Ur Specific Ramer 1.015, Urine Protein Negative, Urine Glucose (UA) Normal, Urine Ketones Negative, Urine Occult Blood Negative, Urine Nitrite Negative, Urine Bilirubin Negative, Urine Urobilinogen Normal, Ur Leukocyte Esterase Negative, Urine RBC 0 SEEN, Urine WBC 0 SEEN, Ur Squamous Epith Cells 0 SEEN, Urine Bacteria 1+, Urine Mucus 0 SEEN 08/08/20 01:15: Troponin I 0.017 08/08/20 04:30: WBC 6.1, RBC 2.69 L, Hgb 8.0 L, Hct 25.8 L, MCV 95.9, MCH 29.7, MCHC 31.0 L, RDW Std Deviation 54.2 H, RDW Coeff of Dre 15.5 H, Plt Count 66 L, MPV 12.7 H, Immature Gran % (Auto) 0.500, Neut % (Auto) 67.4, Lymph % (Auto) 14.[address] L, [place] % (Auto) 14.7 H, Eos % (Auto) 2.5, Baso % (Auto) 0.7, Absolute Neuts (auto) 4.1, Absolute Lymphs (auto) 0.86, Nucleated RBC % 0, Differential Comment SCANNED 08/08/20 04:30: Sodium 141, Potassium 4.3, Chloride 108 H, Carbon Dioxide 26.0, Anion Gap 7, BUN 48 H, Creatinine 1.63 H, Estim Creat Clear Calc 19.87, Est GFR (MDRD) Af Amer 39 L, Est GFR (MDRD) Non-Af 32 L, BUN/Creatinine Ratio 29.4 H, Glucose 78, Calcium 7.8 L, Total Bilirubin 0.50, AST 146 H, ALT 100 H, Alkaline Phosphatase 178 H, Total Protein 6.0 L, Albumin 2.7 L, Globulin 3.3, Albumin/Globulin Ratio 0.8 L, Triglycerides 48, Cholesterol 101, LDL Cholesterol 36, VLDL Cholesterol 10, HDL Cholesterol 55, TSH 0.71, Free T4 1.22 08/08/20 04:30: Troponin I < 0.015 Current Medications Acetaminophen (Acetaminophen 325 Mg Tablet) 650 mg PO Q6H PRN PRN PRN Reason: Pain Score 1-10/Temp > 100.7 F Al Hydroxide/Mg Hydroxide (Mag Hydrox/Al Hydrox/Simeth 30 Ml Udc) 30 ml PO Q6H PRN PRN PRN Reason: Gastric Burning Albuterol Sulfate (Albuterol 2.5 Mg/3 Ml Vial.Neb.) 2.5 mg INHALATION Q2H PRN PRN PRN Reason: Dyspnea, wheezing Amlodipine Besylate (Amlodipine 5 Mg Tablet) 5 mg PO DAILY YUE Aspirin (Aspirin E.C. 81 Mg Tablet) 81 mg PO DAILY@0800 [facility] Carvedilol (Carvedilol 12.5 Mg Tablet) 12.5 mg PO BID [facility] Donepezil HCl (Donepezil Hcl 5 Mg Tablet) 5 mg PO DAILY [facility] Fluoxetine HCl (Fluoxetine 20 Mg Capsule) 20 mg PO DAILY [facility] Furosemide (Furosemide 40 Mg/4 Ml Vial) 40 mg IV BID@1000,1800 [facility] Last Admin: 08/08/20 02:35 Dose: 40 mg Documented by: Guaifenesin (Guaifenesin 10 Ml Udc (200mg/10ml)) 20 ml PO Q4H PRN PRN PRN Reason: COUGH Heparin Sodium (Porcine) (Heparin Injection (Vial) 5,000 Unit/Ml Vial) 0 unit IV UD PRN; Protocol PRN Reason: dose adjustment Hydralazine HCl (Hydralazine 20 Mg/Ml Vial) 10 mg IV Q4H PRN PRN PRN Reason: SBP > 160 Hydroxychloroquine Sulfate ([facility] 200 Mg Tablet) [facility] Sodium/Dextrose () 25,000 units in 250 mls @ 7 mls/hr IV .[id number] [facility]; Protocol Last Admin: 08/08/20 02:56 Dose: 700 units/hr, 7 mls/hr Documented by: Leflunomide (Leflunomide 10 Mg Tablet) 20 mg PO DAILY [facility] Magnesium Hydroxide (Magnesium Hydroxide 30 Ml Udc) 30 ml PO DAILY PRN PRN PRN Reason: Constipation Melatonin (Melatonin 3 Mg Tablet) 3 mg PO QHS PRN PRN PRN Reason: INSOMNIA Morphine Sulfate (Morphine 2 Mg/Ml Syringe) 2 mg IV Q3H PRN PRN PRN Reason: Pain Score 6-10 Nitroglycerin (Nitroglycerin (Inpatient Use) 0.4 Mg Tab.Subl) 0.4 mg SUBLINGUAL Q5M PRN PRN Reason: CARDIAC/CHEST PAIN Non-Formulary Medication (Ketorolac Tromethamine) 5 ml OP 4X/DAY [facility] Ondansetron HCl (Ondansetron 4 Mg/2 Ml Vial) 4 mg IV Q8H PRN PRN PRN Reason: NAUSEA/VOMITING Oxycodone HCl (Oxycodone Cr 20 Mg Tablet) 30 mg PO Q12H [facility] Last Admin: 08/08/20 02:32 Dose: 30 mg Documented by: Oxycodone HCl (Oxycodone 5 Mg Tablet) 5 mg PO Q4H PRN PRN PRN Reason: Pain Score 4-5 Pantoprazole Sodium (Pantoprazole Sodium 40 Mg Tablet) 40 mg PO BID YUE Pregabalin (Pregabalin 75 Mg Capsule) 225 mg PO BID YUE Prochlorperazine Edisylate (Prochlorperazine 10 Mg/2 Ml Vial) 5 mg IV Q4H PRN PRN PRN Reason: Breakthrough Nausea/Vomiting Psyllium Hydrophilic Mucilloid (Psyllium 1 Packet) 1 packet PO DAILY PRN PRN PRN Reason: Constipation Senna/Docusate Sodium (Senna/Docusate Sodium 1 Tablet) 2 tablet PO BID PRN PRN PRN Reason: Constipation Sodium Chloride (0.9% Saline Lock 10 Ml Syringe) 10 - 40 ml IV UD PRN PRN Reason: SALINE FLUSH Throat Lozenges (Benzocaine/Menthol 1 Lozenge) 1 lozenge MUCOUS MEM Q2H PRN PRN PRN Reason: SORE THROAT STROKE Vital Signs/Narrative: Vital Signs Resp Pulse Ox 08/08/20 04:41 16 99 Medical Necessity - Tobacco Use Smoking Status: Never smoker Tobacco Use: Non-smoker Assessment/Plan All Active Problems (Last Reviewed 09/08/19 @ 13:21 by Shyann Eldridge) Hypoxia (Acute) Falls (Acute) Suspected COVID-19 virus infection (Acute) Transaminitis (Acute) CHF exacerbation (Acute) Change in bowel habits (Acute) Generalized abdominal pain (Acute) Diarrhea, unspecified (Acute) Acute diastolic (congestive) heart failure (Resolved) Acute kidney injury (Resolved) Acute respiratory failure (Resolved) Altered mental status (Resolved) 1. Acute on chronic heart failure with preserved EF, 2D echo done today showed EF of 55% with 2 diastolic dysfunction Patient is diuresing well, continue Lasix 40 mg IV twice daily Repeat BMP in a.m.,strict I & Os, daily weight, fluid restriction, CARMELLA-wraps to legs 2. Acute hypoxic respiratory insufficiency secondary to #1 Patient currently on 2 L of oxygen Continue on diuretic, encourage use of incentive spirometer 3. Elevated D-dimer Bilateral lower extremity edema secondary to #1, acute DVT ruled out Will order VQ scan to rule out acute PE 4. Elevated LFTs secondary to #1, improving 5. Hypertension, controlled, continue amlodipine, carvedilol, 6. Chronic thrombocytopenia, slight drop in platelets to 66 with heparin drip Will repeat blood work in a.m. 7. Microcytic microchromic anemia, drop in hemoglobin from 9.3 to 7.8 We will check for iron stores, stool for occult blood Repeat blood work in a.m. 8. CKD stage IV, creatinine is about her baseline Repeat blood work in a.m. 9. Rest of chronic medical conditions -Maxim, depression, hyperlipidemia, GERD all remain stable 10. DVT PPx- Heparin drip Inpatient E&M: 79115 Subs Hosp L2
[2020-08-08 08:51] LABS: Hematocrit 24.9 % (37-47); Hemoglobin 7.8 g/dL (12.0-15.0)
[2020-08-08 09:06] LABS: Partial Thromboplast Time 87.5 Seconds (24.1-36.2)
[2020-08-08 09:45] LABS: Ferritin 359 ng/mL (8-252); Iron 14 ug/dL (50-170); Iron Binding Capacity,Total 156 ug/dL (250-450)
[2020-08-08] MEDS: oxyCODONE 5 MG Tablet PO (09:56)
[2020-08-08] MEDS: Leflunomide 10 MG TABLET 20 MG PO (09:57)
[2020-08-08] MEDS: amLODIPine 5 MG Tablet PO (09:57)
[2020-08-08] MEDS: FLUoxetine 20 MG Capsule PO (09:57)
[2020-08-08] MEDS: Donepezil HCl 5 MG Tablet PO (09:57)
[2020-08-08] MEDS: Aspirin E.C. 81 MG Tablet PO (09:57)
[2020-08-08] MEDS: Carvedilol 12.5 MG Tablet PO (09:57)
[2020-08-08] MEDS: Pantoprazole Sodium 40 MG Tablet PO ×2 (09:57→20:58)
[2020-08-08] MEDS: Hydroxychloroquine 200 MG Tablet PO ×2 (09:57→17:41)
[2020-08-08] MEDS: Pregabalin 75 MG Capsule 225 MG PO ×2 (10:04→20:59)
[2020-08-08] MEDS: 0.9% Saline Lock 10 ML Syringe IV ×2 (10:04→17:41)
--- NOTE | 2020-08-08 11:56 | CASEMGMT ---
PAMELA faxed information to [facility] for Keith to review. PAMELA also called and left him a voice mail asking if patient is ok to return to [place]. Maru GARCIA MSW
--- NOTE | 2020-08-08 13:04 | EKG12_ITS ---
Test Reason : AM EKG Blood Pressure : / mmHG Vent. Rate : 050 BPM Atrial Rate : 050 BPM P-R Int : 196 ms QRS Dur : 126 ms QT Int : 496 ms P-R-T Axes : 056 -45 014 degrees QTc Int : 452 ms Sinus bradycardia Left bundle branch block Abnormal ECG When compared with ECG of 12-FEB-2020 23:53, No significant change was found Confirmed by NELSY LARES, TACHO ([id number]), manager editorial SHANIQUA MCKEON ([id number]) on 08/09/2020 11:14:18 AM Referred By: EM Confirmed By:TACHO WHITTINGTON MD
[2020-08-08 13:47] LABS: M R Staph aureus DNA By PCR Negative (Negative); Probe Check PASS; Specimen Processing Control PASS
--- NOTE | 2020-08-08 13:58 | CASEMGMT ---
PAMELA received a call from Keith at [facility]. He said that therapy is recommending additional therapy. He said patient normally does not do much physically and she is in her wheelchair most of the time. He said it is a little concerning that she had a couple of falls. He said if patient and her daughter are in agreement she would likely benefit from a SNF stay, but otherwise she can return to [place]. PAMELA spoke with patient. Introduced self and role at [facility]. PAMELA asked if she feels like she will be fine in assisted living or if she needs to go for some rehab. She said she is going back to [place] with her . PAMELA then called patient's daughter and she too said she would prefer patient return to [place]. PAMELA called Keith and left him a voice mail letting him know that patient and her daughter prefer patient return to [place]. Maru DOOLEY
[2020-08-08] MEDS: oxyCODONE CR 15 MG Tablet 30 MG PO ×2 (14:00→21:00)
--- NOTE | 2020-08-08 15:58 | PCM.NTREPORT ---
Nutrition Therapy Report - History Nutrition Services has been consulted to:: Manage nutrient details of diet order Current diet / nutrition support order:: Cardiac/Heart-Healthy - Anthropometric Measurements Height:: 5 ft 2 in Weight:: 49 kg Body Mass Index (BMI):: 19.8 - Relevant Labs Relevant Labs:: RBC 2.69 M/mm3 (4.2-5.4) L 08/08/20 04:30 Hgb 7.8 g/dL (12.0-15.0) L 08/08/20 08:38 Hct 24.9 % (37-47) L 08/08/20 08:38 MCHC 31.0 g/dL (32-36) L 08/08/20 04:30 RDW Std Deviation 54.2 fl (35.1-43.9) H 08/08/20 04:30 RDW Coeff of Dre 15.5 % (11.6-14.6) H 08/08/20 04:30 Plt Count 66 K/mm3 (150-450) L 08/08/20 04:30 MPV 12.7 fl (6.2-12.0) H 08/08/20 04:30 Neut % (Auto) 79.1 % (47-70) H 08/07/20 22:00 Lymph % (Auto) 14.2 % (19-41) L 08/08/20 04:30 [place] % (Auto) 14.7 % (0-10) H 08/08/20 04:30 Absolute Lymphs (auto) 0.39 X10^3/uL (0.83-4.51) L 08/07/20 22:00 APTT 87.5 Seconds (24.1-36.2) H 08/08/20 08:38 D-Dimer Quant (PE/DVT) 7.09 FEU/ug/m (0.27-0.49) H* 08/07/20 22:00 Chloride 108 mmol/L (98-107) H 08/08/20 04:30 Anion Gap 3 (5-15) L 08/07/20 22:00 BUN 48 mg/dL (7-18) H 08/08/20 04:30 Creatinine 1.63 mg/dL (0.55-1.02) H 08/08/20 04:30 Est GFR (MDRD) Af Amer 39 mL/min (>60) L 08/08/20 04:30 Est GFR (MDRD) Non-Af 32 mL/min (>60) L 08/08/20 04:30 BUN/Creatinine Ratio 29.4 RATIO (10-20) H 08/08/20 04:30 Calcium 7.8 mg/dL (8.5-10.1) L 08/08/20 04:30 Iron 14 ug/dL (50-170) L 08/08/20 08:38 TIBC 156 ug/dL (250-450) L 08/08/20 08:38 Iron Saturation 9.0 % (15.0-55.0) L 08/08/20 08:38 Ferritin 359 ng/mL (8-252) H 08/08/20 08:38 AST 146 U/L (15-37) H 08/08/20 04:30 ALT 100 U/L (13-56) H 08/08/20 04:30 Alkaline Phosphatase 178 U/L (45-117) H 08/08/20 04:30 Lactate Dehydrogenase 447 U/L (84-246) H 08/07/20 22:00 C-React Prot Ext Range 31.80 mg/L (0.0-3.0) H 08/07/20 22:00 B-Natriuretic Peptide 432.7 pg/mL (0-100) H 08/07/20 22:00 Total Protein 6.0 g/dL (6.4-8.2) L 08/08/20 04:30 Albumin 2.7 g/dL (3.2-5.0) L 08/08/20 04:30 Albumin/Globulin Ratio 0.8 RATIO (0.9-2.4) L 08/08/20 04:30 Procalcitonin 0.71 ng/mL (0.00-0.09) H 08/07/20 22:00 - Assessment Food / Nutrition-Related History:: Pt appears confused but, does report poor appetite and 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 Pt unable to state UBW but, per EMR review appears as though wt was ~160 lbs approximately 3 years ago(~30% wt loss) & more recently ~120 lbs in the past year (~10% wt loss). Pt unable to give details but, seem willing to take ensure PO for addtional calories/protein. Pt appears to have severe fat/muscle wasting in the neck, shoulders, face and upper body +NFPA. Pt meets criteria for severe pro/trevor malnutrition. 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 Evidence of Malnutrition Exists:: Yes Severe PCM:: Chronic Illness - Nutrition Intervention Nutrition Prescription:: Estimated~2295-6541 kcal, ~60-70 gm protein per day for repletion. - Food / Nutrient Delivery Interventions Summary of nutrition intervention:: Will liuberalize diet to regular/no added salt; add 120 ml ensure enlive 4 x daily w/ medpass; add varied ONS w/ meals TID as tolerated. Nutrition support ordered as / adjusted to:: Consider TF support if intake continues to fail and wt continues to decline. Nutrition education provided?: No - pt appears confused - MNT Monitoring Further MNT monitoring and evaluation required?: Yes MNT Follow-up in:: 3-5 days
[2020-08-08 17:11] LABS: Partial Thromboplast Time 52.7 Seconds (24.1-36.2)
[2020-08-08 18:15] LABS: Thyroid Stim Hormone (TSH) 1.11 uIU/mL (0.358-3.74)
[2020-08-09] VITALS (13 sets, daily range): BP systolic 133–200; BP diastolic 47–75; PULSE 46–78; RESP 10–18; TEMP 36.4–37.2; O2SAT 96–99
[2020-08-09 00:58] LABS: Partial Thromboplast Time 60.8 Seconds (24.1-36.2)
--- NOTE | 2020-08-09 06:52 | NURSING ---
Call placed to lab to ensure staff is coming to draw pt's aPTT due at 0640.
--- NOTE | 2020-08-09 07:25 | NURSING ---
This RN entered pt's room; pt laying in bed unresponsive while lab staff in to draw blood. This RN shouted pt's name with sternal rub with no response. This RN called for help, RNs at bedside, WOOD TANK ERECTOR activated. Pt 99% on 2L oxygen via nasal cannula, heart rate 78.
[2020-08-09 07:27] LABS: Absolute Lymphocyte Count 0.63 X10^3/uL (0.83-4.51); Absolute Neutrophil Count 2.5 X10^3/uL (2.0-7.7); Basophil# 0.03 X10^3/uL; Basophil% 0.8 % (0-1); Eosinophil# 0.12 X10^3/uL; Eosinophils% 3.1 % (0-5); Hematocrit 23.5 % (37-47); Hemoglobin 7.5 g/dL (12.0-15.0); Lymphocyte # 0.63 X10^3/ul (4.0); Mean Corp Hgb Conc 31.9 g/dL (32-36); Mean Corpuscular Hgb 30.1 pg (27.0-32.0); Mean Corpuscular Volume 94.4 fL (81-99); Mean Platelet Vol. 12.6 fl (6.2-12.0); Monocyte# 0.67 X10^3/uL; NRBC Flagged by Analyzer 0 % (0-5); Neutrophil # 2.46 X10^3/uL (2.7-7.7); Neutrophil % 62.6 % (47-70); POSITIVE COUNT YES; Platelet Count 65 K/mm3 (150-450); RBC Distribution Width CV 15.3 % (11.6-14.6); RBC Distribution Width SD 52.7 fl (35.1-43.9); Red Blood Count 2.49 M/mm3 (4.2-5.4); White Blood Count 3.9 K/mm3 (4.4-11.0)
[2020-08-09] MEDS: Naloxone 0.4 MG/ML Syringe (07:30)
[2020-08-09 07:35] LABS: Partial Thromboplast Time 56.5 Seconds (24.1-36.2)
[2020-08-09 07:41] LABS: ALB/GLOB Ratio 0.8 RATIO (0.9-2.4); AST(SGOT) 45 U/L (15-37); Alanine Aminotransfer ALT/SGPT 56 U/L (13-56); Albumin, Serum 2.6 g/dL (3.2-5.0); Alkaline Phosphatase 131 U/L (45-117); Anion Gap 4 (5-15); BUN 51 mg/dL (7-18); BUN/Creat Ratio 30.5 RATIO (10-20); Calcium,Total 8.1 mg/dL (8.5-10.1); Chloride 107 mmol/L (98-107); Creatinine, Serum 1.67 mg/dL (0.55-1.02); EST Glomerular Filtration Rate 31 mL/min (>60); Est Glom Filt Rate - Afr Amer 38 mL/min (>60); Globulin 3.2 g/dL (2.2-4.2); Glucose 96 mg/dL (74-106); Potassium 4.1 mmol/L (3.5-5.1); Protein, Total 5.8 g/dL (6.4-8.2); Sodium Level 141 mmol/L (136-145)
[2020-08-09 07:46] LABS: Allen Test Positive; Base Excess 4 mmol/L (-2 to +2); Bicarbonate 28.6 mmol/L (22-26); Blood Gas Specimen Type ART; FI02 36; O2 Delivery Device Cannula; PO2 135 mmHG (75-100); SITE R Radial; SO2 99 % (95-99); Total Carbon Dioxide 30 mmol/L; pCO2 45.4 mmHg (35-45); pH 7.41 (7.35-7.45)
--- NOTE | 2020-08-09 07:58 | PCM.PN.HOSP ---
Patient Problems: Active and Suspected Problems (Last Reviewed 09/08/19 @ 13:21 by Shyann Eldridge) Hypoxia (Acute) Falls (Acute) Suspected COVID-19 virus infection (Acute) Transaminitis (Acute) CHF exacerbation (Acute) Pulmonary embolism (Suspected) Reason for Visit: Follow-up on hypoxia/acute decompensated CHF Subjective: Patient was seen and examined. A rapid response was called on patient who was not easily arousable. Her blood sugar was 106. Blood pressure was 155/65, heart rate was 75. Patient last received OxyContin at 9 PM. 0.4 mg of Narcan was given with improvement in patient's mentation. She however quickly went back to sleep. Another 0.4 mg of Narcan was given with improvement. Objective: Physical exam: General: Alert, Oriented x3, Cooperative, lethargic HEENT: Atraumatic, PERRLA, EOMI, Normocephalic Neck: Supple Lungs: Diminished Cardiovascular: Regular rate, Regular Rhythm, Normal S1, Normal S2, No murmurs Abdomen: Bowel Sounds Present, Soft, Non Tender, Non-Distended, No Hepato-splenomegaly Extremities: No edema Skin: No rashes, No breakdown Musculoskeletal: No Tenderness to Palpation of Joints or Extremities Lymphatic: No Cervical, Supraclavicular, or Inguinal Adenopathy Neurological: Cranial nerves II-XII grossly intact, Neuro grossly intact Psych/Mental Status: Normal Affect, Appropriate Vitals/I&O's: Vital Signs Temp Pulse Resp BP Pulse Ox 97.8 F 78 10 L 151/62 H 98 08/09/20 02:52 08/09/20 07:30 08/09/20 07:30 08/09/20 07:30 08/09/20 07:30 Oxygen Flow Rate (L/min) 2 Oxygen Delivery Method Nasal Cannula Weight: 49 kg Body Mass Index (BMI) 19.8 Intake and Output for Last 24 Hours 08/07/20 08/08/20 08/09/20 23:59 23:59 23:59 Intake Total 729.12 / 829.12 160 / 160 Output Total 1000 / 1000 500 / 500 Balance -270.88 / -170.88 -340 / -340 Microbiology Past 72 Hours 08/08/20 05:02 Urine, Clean Catch Legionella Antigen - Final 08/08/20 05:02 Urine, Clean Catch Streptococcus pneumoniae Antigen (M - Final 08/07/20 21:45 Mucosa - Nasopharyngeal Respiratory Panel (PCR) - Final Laboratory Results 08/08/20 06:26: MRSA (PCR) Negative 08/08/20 08:38: APTT 87.5 H 08/08/20 08:38: Iron 14 L, TIBC 156 L, Iron Saturation 9.0 L, Ferritin 359 H 08/08/20 08:38: Hgb 7.8 L, Hct 24.9 L 08/08/20 08:38: Magnesium 2.0 08/08/20 08:38: TSH 1.11 08/08/20 16:20: APTT 52.7 H 08/09/20 00:40: APTT 60.8 H 08/09/20 07:15: WBC 3.9 L, RBC 2.49 L, Hgb 7.5 L, Hct 23.5 L, MCV 94.4, MCH 30.1, MCHC 31.9 L, RDW Std Deviation 52.7 H, RDW Coeff of Dre 15.3 H, Plt Count 65 L, MPV 12.6 H, Immature Gran % (Auto) 0.500, Neut % (Auto) 62.6, Lymph % (Auto) 16.0 L, Estill % (Auto) 17.0 H, Eos % (Auto) 3.1, Baso % (Auto) 0.8, Absolute Neuts (auto) 2.5, Absolute Lymphs (auto) 0.63 L, Nucleated RBC % 0 08/09/20 07:15: Sodium 141, Potassium 4.1, Chloride 107, Carbon Dioxide 30.0, Anion Gap 4 L, BUN 51 H, Creatinine 1.67 H, Estim Creat Clear Calc 19.40, Est GFR (MDRD) Af Amer 38 L, Est GFR (MDRD) Non-Af 31 L, BUN/Creatinine Ratio 30.5 H, Glucose 96, Calcium 8.1 L, Total Bilirubin 0.40, AST 45 H, ALT 56, Alkaline Phosphatase 131 H, Total Protein 5.8 L, Albumin 2.6 L, Globulin 3.2, Albumin/Globulin Ratio 0.8 L 08/09/20 07:15: APTT 56.5 H 08/09/20 07:38: Specimen Type ART, Sample Site R Radial, pH 7.41, Bicarbonate Actual 28.6 H, Total CO2 30, Base Excess 4 H, O2 Saturation 99, O2 % 36, ABG pCO2 45.4 H, ABG pO2 135 H, Rosalio Test Positive, O2 Delivery Device Cannula Current Medications Acetaminophen (Acetaminophen 325 Mg Tablet) 650 mg PO Q6H PRN PRN PRN Reason: Pain Score 1-10/Temp > 100.7 F Al Hydroxide/Mg Hydroxide (Mag Hydrox/Al Hydrox/Simeth 30 Ml Udc) 30 ml PO Q6H PRN PRN PRN Reason: Gastric Burning Albuterol Sulfate (Albuterol 2.5 Mg/3 Ml Vial.Neb.) 2.5 mg INHALATION Q2H PRN PRN PRN Reason: Dyspnea, wheezing Amlodipine Besylate (Amlodipine 5 Mg Tablet) 5 mg PO DAILY [facility] TO [facility] Last Admin: 08/08/20 09:57 Dose: 5 mg Documented by: Aspirin (Aspirin E.C. 81 Mg Tablet) 81 mg PO DAILY@0800 [facility] Last Admin: 08/08/20 09:57 Dose: 81 mg Documented by: Carvedilol (Carvedilol 12.5 Mg Tablet) 12.5 mg PO BID [facility] Last Admin: 08/08/20 09:57 Dose: 12.5 mg Documented by: Donepezil HCl (Donepezil Hcl 5 Mg Tablet) 5 mg PO DAILY [facility] Last Admin: 08/08/20 09:57 Dose: 5 mg Documented by: Fluoxetine HCl (Fluoxetine 20 Mg Capsule) 20 mg PO DAILY [facility] Last Admin: 08/08/20 09:57 Dose: 20 mg Documented by: Furosemide (Furosemide 40 Mg/4 Ml Vial) 40 mg IV BID@1000,1800 [facility] TO [facility] Last Admin: 08/08/20 17:41 Dose: 40 mg Documented by: Guaifenesin (Guaifenesin 10 Ml Udc (200mg/10ml)) 20 ml PO Q4H PRN PRN PRN Reason: COUGH Heparin Sodium (Porcine) (Heparin Injection (Vial) 5,000 Unit/Ml Vial) 0 unit IV UD PRN; Protocol PRN Reason: dose adjustment Hydralazine HCl (Hydralazine 20 Mg/Ml Vial) 10 mg IV Q4H PRN PRN PRN Reason: SBP > 160 Hydroxychloroquine Sulfate (Hydroxychloroquine 200 Mg Tablet) 200 mg PO BIDCM [facility] Last Admin: 08/08/20 17:41 Dose: 200 mg Documented by: Heparin Sodium/Dextrose () 25,000 units in 250 mls @ 7 mls/hr IV .[id number] PENDING SALE TO [facility]; Protocol Last Admin: 08/08/20 18:15 Dose: Not Given Documented by: Ferric Sodium Gluconate Complex 250 mg/ Sodium Chloride 270 mls @ 135 mls/hr IV DAILY [facility] Stop: 08/11/20 11:59 Leflunomide (Leflunomide 10 Mg Tablet) 20 mg PO DAILY [facility] Last Admin: 08/08/20 09:57 Dose: 20 mg Documented by: Magnesium Hydroxide (Magnesium Hydroxide 30 Ml Udc) 30 ml PO DAILY PRN PRN PRN Reason: Constipation Melatonin (Melatonin 3 Mg Tablet) 3 mg PO QHS PRN PRN PRN Reason: INSOMNIA Nitroglycerin (Nitroglycerin (Inpatient Use) 0.4 Mg Tab.Subl) 0.4 mg SUBLINGUAL Q5M PRN PRN Reason: CARDIAC/CHEST PAIN Nutritional Formula (Lactose Free) (Ensure Enlive 120 Ml Liquid) 120 ml PO 4X/DAY [facility] Last Admin: 08/08/20 20:57 Dose: Not Given Documented by: Ondansetron HCl (Ondansetron 4 Mg/2 Ml Vial) 4 mg IV Q8H PRN PRN PRN Reason: NAUSEA/VOMITING Pantoprazole Sodium (Pantoprazole Sodium 40 Mg Tablet) 40 mg PO BID [facility] Last Admin: 08/08/20 20:58 Dose: 40 mg Documented by: Pregabalin (Pregabalin 75 Mg Capsule) 225 mg PO BID [facility] Last Admin: 08/08/20 20:59 Dose: 225 mg Documented by: Prochlorperazine Edisylate (Prochlorperazine 10 Mg/2 Ml Vial) 5 mg IV Q4H PRN PRN PRN Reason: Breakthrough Nausea/Vomiting Psyllium Hydrophilic Mucilloid (Psyllium 1 Packet) 1 packet PO DAILY PRN PRN PRN Reason: Constipation Senna/Docusate Sodium (Senna/Docusate Sodium 1 Tablet) 2 tablet PO BID PRN PRN PRN Reason: Constipation Sodium Chloride (0.9% Saline Lock 10 Ml Syringe) 10 - 40 ml IV UD PRN PRN Reason: SALINE FLUSH Last Admin: 11/09/20 17:41 Dose: 10 ml Documented by: Throat Lozenges (Benzocaine/Menthol 1 Lozenge) 1 lozenge MUCOUS MEM Q2H PRN PRN PRN Reason: SORE THROAT STROKE Vital Signs/Narrative: Vital Signs Pulse Resp BP Pulse Ox 08/09/20 07:30 78 10 L 151/62 H 98 08/09/20 04:03 75 Medical Necessity - Tobacco Use Smoking Status: Never smoker Tobacco Use: Non-smoker Assessment/Plan All Active Problems (Last Reviewed 09/08/19 @ 13:21 by Shyann Eldridge) Hypoxia (Acute) Falls (Acute) Suspected COVID-19 virus infection (Acute) Transaminitis (Acute) CHF exacerbation (Acute) Change in bowel habits (Acute) Generalized abdominal pain (Acute) Diarrhea, unspecified (Acute) Acute diastolic (congestive) heart failure (Resolved) Acute kidney injury (Resolved) Acute respiratory failure (Resolved) Altered mental status (Resolved) 1. Acute metabolic encephalopathy secondary to narcotic effect Patient was on OxyContin and oxycodone. She last received OxyContin at 9 PM on 08/08/20 Patient responded to Narcan. We will continue to monitor She may need a Narcan drip. 2. Acute on chronic heart failure with preserved EF, 2D echo done today showed EF of 55% with 2 diastolic dysfunction Improving, will continue Lasix 20 mg IV twice daily Repeat BMP in a.m.,strict I & Os, daily weight, fluid restriction, CARMELLA-wraps to legs 3. Acute hypoxic respiratory insufficiency secondary to #1 Patient currently on 2 L of oxygen Continue on diuretic, encourage use of incentive spirometer 3. Elevated D-dimer Bilateral lower extremity edema secondary to #1, acute DVT ruled out VQ scan to rule out acute PE pending 4. Bradycardia, noted during this hospital stay, EKG shows sinus bradycardia with prolonged HI interval Off carvedilol, Aricept and amlodipine, continue to monitor 5. Elevated LFTs secondary to #1, resolving 6. Hypertension, uncontrolled, Off amlodipine, carvedilol for now on account of bradycardia We will continue to monitor on hydralazine as needed for now 7. Chronic thrombocytopenia, platelets remain at 65 with heparin drip Will continue to monitor 8. Iron deficiency anemia, iron saturation of 9%, started on IV iron Stool for occult blood is pending 9. CKD stage IV, creatinine is about her baseline Repeat blood work in a.m. 10. Rest of chronic medical conditions -Maxim, depression, hyperlipidemia, GERD all remain stable 11. DVT PPx- Heparin drip Inpatient E&M: [id number] [facility] H[facility] L3
[2020-08-09 08:01] LABS: Bedside Glucose 106 mg/dL (70-110)
[2020-08-09] MEDS: hydrALAZINE 20 MG/ML Vial 10 MG IV (08:07)
[2020-08-09] MEDS: 0.9% Saline Lock 10 ML Syringe IV (08:09)
[2020-08-09] MEDS: Naloxone 0.4 MG/ML Syringe IV (08:20)
[2020-08-09] MEDS: Sodium Ferric Gluconat 250 MG in 0.9% Normal Saline 250 ML 135 MG IV (10:32)
[2020-08-09] MEDS: Furosemide 20 MG/2 ML VIAL IV ×2 (10:35→17:53)
[2020-08-09] MEDS: Pantoprazole Sodium 40 MG Tablet PO ×2 (10:38→21:32)
[2020-08-09] MEDS: FLUoxetine 20 MG Capsule PO (10:38)
[2020-08-09] MEDS: Hydroxychloroquine 200 MG Tablet PO ×2 (10:39→17:52)
[2020-08-09] MEDS: Leflunomide 10 MG TABLET 20 MG PO (10:40)
[2020-08-09] MEDS: Aspirin E.C. 81 MG Tablet PO (10:40)
--- NOTE | 2020-08-09 11:50 | NM_ITS ---
CLINICAL: Female, 84 years old. Elevated d dimer after fall NUCLEAR VENTILATION/PERFUSION - LUNG TECHNIQUE: The patient was administered 5.7 mCi of Tc MAA followed by a perfusion lung scan. The patient was administered 46.4 mCi of Tc DTPA aerosol followed by a ventilation lung scan. Comparison made to prior chest radiograph dated 08/07/2020. FINDINGS: The pulmonary perfusion study demonstrates uniform perfusion throughout both lung ruelas. There are no demonstrated segmental or subsegmental perfusion defects The ventilation study demonstrates uniform ventilation throughout both lung ruelas. There are no segmental or subsegmental ventilation abnormalities. NM/Lung Scan Vent/Perf IMPRESSION: Normal 99m Tc MAA pulmonary perfusion Tc DTPA aerosol ventilation imaging survey, according to revised PIOPED interpretive criteria. Electronically Signed: Kayden Sullivan, at 12:52 EST , Service support ,
[2020-08-09] MEDS: oxyCODONE 5 MG Tablet PO (14:32)
[2020-08-10 03:00] VITALS: PULSE 49
[2020-08-10 03:15] VITALS: BP 158/67; PULSE 61; RESP 16; TEMP 36.7; O2SAT 94
--- NOTE | 2020-08-10 04:14 | NURSING ---
Report received from Nish Garrison RN. This RN will resume care of pt at this time.
[2020-08-10 07:18] VITALS: O2SAT 92
[2020-08-10 07:27] VITALS: PULSE 54
--- NOTE | 2020-08-10 07:43 | PCM.PN.HOSP ---
Patient Problems: Active and Suspected Problems (Last Reviewed 09/08/19 @ 13:21 by Shyann Eldridge) Hypoxia (Acute) Falls (Acute) Suspected COVID-19 virus infection (Acute) Transaminitis (Acute) CHF exacerbation (Acute) Pulmonary embolism (Suspected) Vitals/I&O's: Vital Signs Temp Pulse Resp BP Pulse Ox 98.1 F 54 L 16 158/67 H 92 08/10/20 03:15 08/10/20 07:27 08/10/20 03:15 08/10/20 03:15 08/10/20 07:18 Oxygen Flow Rate (L/min) 2 Oxygen Delivery Method Room Air Weight: 50.3 kg Body Mass Index (BMI) 19.8 Intake and Output for Last 24 Hours 08/08/20 08/09/20 08/10/20 23:59 23:59 23:59 Intake Total 729.12 / 829.12 684.47 / 684.47 0 / 0 Output Total 1000 / 1000 900 / 900 500 / 500 Balance -270.88 / -170.88 -215.53 / -215.53 -500 / -500 Microbiology Past 72 Hours 08/08/20 05:02 Urine, Clean Catch Legionella Antigen - Final 08/08/20 05:02 Urine, Clean Catch Streptococcus pneumoniae Antigen (M - Final 08/07/20 21:45 Mucosa - Nasopharyngeal Respiratory Panel (PCR) - Final Laboratory Results 08/09/20 07:23: POC Glucose 106 08/09/20 07:38: Specimen Type ART, Sample Site R Radial, pH 7.41, Bicarbonate Actual 28.6 H, Total CO2 30, Base Excess 4 H, O2 Saturation 99, O2 % 36, ABG pCO2 45.4 H, ABG pO2 135 H, Rosalio Test Positive, O2 Delivery Device Cannula Current Medications Acetaminophen (Acetaminophen 325 Mg Tablet) 650 mg PO Q6H PRN PRN PRN Reason: Pain Score 1-10/Temp > 100.7 F Al Hydroxide/Mg Hydroxide (Mag Hydrox/Al Hydrox/Simeth 30 Ml Udc) 30 ml PO Q6H PRN PRN PRN Reason: Gastric Burning Albuterol Sulfate (Albuterol 2.5 Mg/3 Ml Vial.Neb.) 2.5 mg INHALATION Q2H PRN PRN PRN Reason: Dyspnea, wheezing Amlodipine Besylate (Amlodipine 5 Mg Tablet) 5 mg PO DAILY [facility] Last Admin: 08/08/20 09:57 Dose: 5 mg Documented by: Aspirin (Aspirin E.C. 81 Mg Tablet) 81 mg PO DAILY@0800 [facility] Last Admin: 08/09/20 10:40 Dose: 81 mg Documented by: Carvedilol (Carvedilol 12.5 Mg Tablet) 12.5 mg PO BID [facility] Last Admin: 08/08/20 09:57 Dose: 12.5 mg Documented by: Donepezil HCl (Donepezil Hcl 5 Mg Tablet) 5 mg PO DAILY [facility] Last Admin: 08/08/20 09:57 Dose: 5 mg Documented by: Fluoxetine HCl (Fluoxetine 20 Mg Capsule) 20 mg PO DAILY [facility] Last Admin: 08/09/20 10:38 Dose: 20 mg Documented by: Furosemide (Furosemide 20 Mg/2 Ml Vial) 20 mg IV BID@1000,1800 [facility] Last Admin: 08/09/20 17:53 Dose: 20 mg Documented by: Guaifenesin (Guaifenesin 10 Ml Udc (200mg/10ml)) 20 ml PO Q4H PRN PRN PRN Reason: COUGH Heparin Sodium (Porcine) (Heparin Injection (Vial) 5,000 Unit/Ml Vial) 0 unit IV UD PRN; Protocol PRN Reason: dose adjustment Hydralazine HCl (Hydralazine 20 Mg/Ml Vial) 10 mg IV Q4H PRN PRN PRN Reason: SBP > 160 Last Admin: 08/09/20 08:07 Dose: 10 mg Documented by: Hydroxychloroquine Sulfate (Hydroxychloroquine 200 Mg Tablet) 200 mg PO BIDCM [facility] Last Admin: 08/09/20 17:52 Dose: 200 mg Documented by: Ferric Sodium Gluconate Complex 250 mg/ Sodium Chloride 270 mls @ 135 mls/hr IV DAILY [facility] Stop: 08/11/20 11:59 Last Infusion: 08/09/20 12:50 Dose: Infused Documented by: Leflunomide (Leflunomide 10 Mg Tablet) 20 mg PO DAILY [facility] Last Admin: 08/09/20 10:40 Dose: 20 mg Documented by: Magnesium Hydroxide (Magnesium Hydroxide 30 Ml Udc) 30 ml PO DAILY PRN PRN PRN Reason: Constipation Nitroglycerin (Nitroglycerin (Inpatient Use) 0.4 Mg Tab.Subl) 0.4 mg SUBLINGUAL Q5M PRN PRN Reason: CARDIAC/CHEST PAIN Nutritional Formula (Lactose Free) (Ensure Enlive 120 Ml Liquid) 120 ml PO 4X/DAY [facility] Last Admin: 08/09/20 21:32 Dose: Not Given Documented by: Ondansetron HCl (Ondansetron 4 Mg/2 Ml Vial) 4 mg IV Q8H PRN PRN PRN Reason: NAUSEA/VOMITING Pantoprazole Sodium (Pantoprazole Sodium 40 Mg Tablet) 40 mg PO BID [facility] Last Admin: 08/09/20 21:32 Dose: 40 mg Documented by: Psyllium Hydrophilic Mucilloid (Psyllium 1 Packet) 1 packet PO DAILY PRN PRN PRN Reason: Constipation Senna/Docusate Sodium (Senna/Docusate Sodium 1 Tablet) 2 tablet PO BID PRN PRN PRN Reason: Constipation Sodium Chloride (0.9% Saline Lock 10 Ml Syringe) 10 - 40 ml IV UD PRN PRN Reason: SALINE FLUSH Last Admin: 08/09/20 08:09 Dose: 10 ml Documented by: Throat Lozenges (Benzocaine/Menthol 1 Lozenge) 1 lozenge MUCOUS MEM Q2H PRN PRN PRN Reason: SORE THROAT STROKE Vital Signs/Narrative: Vital Signs Pulse Pulse Ox 08/10/20 07:27 54 L 08/10/20 07:18 92 Medical Necessity - Tobacco Use Smoking Status: Never smoker Tobacco Use: Non-smoker Assessment/Plan All Active Problems (Last Reviewed 09/08/19 @ 13:21 by Shyann Eldridge) Hypoxia (Acute) Falls (Acute) Suspected COVID-19 virus infection (Acute) Transaminitis (Acute) CHF exacerbation (Acute) Change in bowel habits (Acute) Generalized abdominal pain (Acute) Diarrhea, unspecified (Acute) Acute diastolic (congestive) heart failure (Resolved) Acute kidney injury (Resolved) Acute respiratory failure (Resolved) Altered mental status (Resolved)
[2020-08-10 08:33] VITALS: BP 136/49; PULSE 54; RESP 16; TEMP 36.6; O2SAT 98
[2020-08-10 08:36] VITALS: O2SAT 99
[2020-08-10 08:45] LABS: Absolute Lymphocyte Count 0.58 X10^3/uL (0.83-4.51); Absolute Neutrophil Count 1.6 X10^3/uL (2.0-7.7); Basophil# 0.03 X10^3/uL; Basophil% 1.1 % (0-1); Eosinophil# 0.11 X10^3/uL; Hematocrit 27.4 % (37-47); Hemoglobin 8.9 g/dL (12.0-15.0); Lymphocyte # 0.58 X10^3/ul (4.0); Lymphocyte % 20.9 % (19-41); Mean Corp Hgb Conc 32.5 g/dL (32-36); Mean Corpuscular Hgb 29.7 pg (27.0-32.0); Mean Corpuscular Volume 91.3 fL (81-99); Mean Platelet Vol. 12.6 fl (6.2-12.0); Monocyte# 0.48 X10^3/uL; Monocyte% 17.3 % (0-10); NRBC Flagged by Analyzer 0 % (0-5); Neutrophil # 1.57 X10^3/uL (2.7-7.7); Neutrophil % 56.7 % (47-70); POSITIVE DIFFERENTIAL YES; Platelet Count 101 K/mm3 (150-450); RBC Distribution Width CV 15.2 % (11.6-14.6); White Blood Count 2.8 K/mm3 (4.4-11.0)
[2020-08-10 08:46] LABS: Differential Indicated SCAN CRITERIA MET
--- NOTE | 2020-08-10 09:03 | PCM.DC ---
- Discharge Diagnoses Current Active Problems: Current Active and Chronic Problems (Last Reviewed 09/08/19 @ 13:21 by Shyann Eldridge) Acute on chronic heart failure with preserved EF Acute hypoxic respiratory insufficiency Elevated D-dimer HTN (hypertension) (Chronic) Hyperlipidemia (Chronic) CKD (chronic kidney disease), stage III (Chronic) Chronic anemia (Chronic) Chronic pain syndrome (Chronic) Depression (Chronic) Rheumatoid arthritis (Chronic) Peripheral neuropathy (Chronic) Reason(s) for Visit for Discharge Instructions: Generalised weakness, shortness of breath You will use the following diet at home:: Cardiac, Fluid restricted (specify 2000 mls, 1500 mls) - 1500 mls Your food should be the consistency of: Regular Your liquids should be the consistency of: Regular/Thin Discharge Activity: Return to Normal Activity Additional Instructions: Continue to take all your medications as prescribed. Take note of changes to your medication. Continue on a low-fat low-salt diet. Restrict your total fluid intake to less than 1500 mils. Weigh yourself every day. Let your doctor know when you gain more than 5 pounds of weight. Follow-up with your primary care doctor in 1 to 2 weeks. Follow-up with the coil spring assembler in 2 weeks. You would need repeat blood work to check on your kidney function within a week of discharge. Allergies/Adverse Reactions: Allergies infliximab [From Remicade] Allergy (Verified 02/12/20 23:00) Hives Penicillins Allergy (Verified 02/12/20 23:00) Hives methotrexate Adverse Reaction (Verified 02/12/20 23:00) Unknown Medications to take at Discharge Aspirin E.C. [Ecotrin] 81 mg PO DAILY@0800 07/14/13 Omeprazole [Prilosec] 40 mg PO BID 07/14/13 Fluoxetine [Prozac] 20 mg PO DAILY 10/11/16 Leflunomide [Arava] 20 mg PO DAILY 12/03/16 Hydroxychloroquine [Plaquenil] 200 mg PO BIDCM 02/01/17 Ergocalciferol [Vitamin D] 1.25 mg PO .COMPLEX 02/12/20 Ondansetron [Zofran Odt] 4 mg PO Q8H PRN PRN 02/12/20 Acetaminophen [Tylenol Tablet] 650 mg PO Q6H PRN PRN tablet 08/10/20 Carvedilol [Coreg (Beta Estevan)] 3.125 mg PO BID 30 Days #60 tab 08/10/20 Ensure Enlive 120 ml PO 4X/DAY 30 Days #120 liquid 08/10/20 Furosemide [Lasix] 40 mg PO DAILY 30 Days #30 tab 08/10/20 Pregabalin [Lyrica] 75 mg PO BID 30 Days #60 capsule 08/10/20 The following prescriptions were given: Carvedilol [Coreg (Beta Estevan)] 3.125 mg PO BID 30 Days #60 tab Transmission Status: Pending to [address] Ensure Enlive 120 ml PO 4X/DAY 30 Days #120 liquid Transmission Status: Pending to [address] Furosemide [Lasix] 40 mg PO DAILY 30 Days #30 tab Transmission Status: Pending to [address] Pregabalin [Lyrica] 75 mg PO BID 30 Days #60 capsule Transmission Status: Received by [address] Primary Care Physician: Bassam Brown DO [Primary Care Provider] - Please follow up with your Primary Care Physician in: within 2 weeks Test Results: Test results from this visit will be discussed in further detail at your follow-up appointment, if applicable. Proposed Discharge Date: 08/10/20
--- NOTE | 2020-08-10 09:10 | DS.PCM_ITS ---
Discharge Date and Diagnosis - Problem List Patient Problems: Active and Suspected Problems (Last Reviewed 09/08/19 @ 13:21 by Shyann Eldridge) Hypoxia (Acute) Falls (Acute) Suspected COVID-19 virus infection (Acute) Transaminitis (Acute) CHF exacerbation (Acute) Pulmonary embolism (Suspected) Date of Admission: 08/07/20 Date of Discharge: 08/10/20 - Primary Discharge Diagnosis Acute Problems: Active Problems (Last Reviewed 09/08/19 @ 13:21 by Shyann Eldridge) Acute hypoxic respiratory insufficiency Acute on chronic heart failure with preserved EF, EF of 55% Elevated D-dimer Acute metabolic encephalopathy secondary to narcotic effect Bradycardia Evaded LFTs secondary to heart failure Uncontrolled hypertension Acute on chronic thrombocytopenia Iron deficiency anemia Suspected Problems: Suspected Problems (Last Reviewed 09/08/19 @ 13:21 by Shyann Eldridge) Pulmonary embolism (Suspected) - Secondary Discharge Diagnosis Chronic Problems: Chronic Problems (Last Reviewed 09/08/19 @ 13:21 by Shyann Eldridge) Nonrheumatic mitral (valve) insufficiency (Chronic) Mild (1+) per echo 03/20/2017 Nonrheumatic aortic (valve) insufficiency (Chronic) Mild (1+) per echo 03/20/2017 Nonrheumatic tricuspid (valve) insufficiency (Chronic) Mild (1+) per echo 03/20/2017 Secondary pulmonary hypertension (Chronic) Chronic diastolic (congestive) heart failure (Chronic) HTN (hypertension) (Chronic) Hyperlipidemia (Chronic) CKD (chronic kidney disease), stage III (Chronic) Chronic anemia (Chronic) Chronic pain syndrome (Chronic) Depression (Chronic) Rheumatoid arthritis (Chronic) Peripheral neuropathy (Chronic) Elevated hemidiaphragm (Chronic) Hospital Course and Treatment Imaging Results: Clinical Impression(s) from Imaging Studies Brain CT 08/07/20 21:35 IMPRESSION: No evidence of intracranial injury or skull fracture. Electronically Signed: Eduardo Duenas, at 22:56 EST Tel , Service support , Cervical Spine CT 08/07/20 21:38 IMPRESSION: No fracture or dislocation of the cervical spine. Electronically Signed: Eduardo Duenas, at 23:00 EST Tel , Service support , Hip/Pelvis X-Ray 08/07/20 21:38 IMPRESSION: No acute osseous abnormality. Electronically Signed: Eduardo Duenas, at 23:06 EST Tel , Service support , Knee X-Ray 08/07/20 21:38 IMPRESSION: No acute osseous abnormality. Small joint effusion. Electronically Signed: Eduardo Duenas, at 23:03 EST Tel , Service support , Chest X-Ray 08/07/20 22:35 IMPRESSION: No acute findings. Electronically Signed: Eduardo Duenas, at 23:01 EST Tel , Service support , Lung Scan-VQ NM 08/09/20 11:50 IMPRESSION: Normal 99m Tc MAA pulmonary perfusion Tc DTPA aerosol ventilation imaging survey, according to revised PIOPED interpretive criteria. Electronically Signed: Kayden Sullivan, at 12:52 EST , Service support , Operations: None Procedures: 2-D Echocardiogram Summary of Care Provided: The patient is a 84 year old F with multiple comorbidities who comes in with history of recurrent falls and hypoxia and was found to have acute on chronic heart failure with preserved EF. Her admitting BNP was 432. Patient was started on Lasix with improvement. She also was found to have lower extremity edema, Doppler ultrasounds were negative. She was started on heparin drip. VQ scan eventually was done and was negative. Patient also had elevated LFTs that was secondary to hepatic venous congestion from heart failure. This improved with treatment of heart failure. Patient was found to be very lethargic on 08/09/20. She was on Lyrica and OxyContin as well as oxycodone. She responded to 2 doses of Narcan. Her blood pressure was uncontrolled and changes were made to her medications. We had a long discussion with regards to her medications. Patient was not discharged on OxyContin or oxycodone. She was discharged charged in a lower dose of pregabalin 75 mg twice daily. She will follow-up with her primary care doctor. She was given CHF education on the day of discharge. She also is aware that she needs repeat blood work within a week to check on her kidney function. Patient Problems: Active and Suspected Problems (Last Reviewed 09/08/19 @ 13:21 by Shyann Eldridge) Hypoxia (Acute) Falls (Acute) Suspected COVID-19 virus infection (Acute) Transaminitis (Acute) CHF exacerbation (Acute) Pulmonary embolism (Suspected) Subjective: On the day of discharge, patient was seen and examined. She is awake, alert, oriented x 3. She denied any worsening pain or dizziness or palpitation. We had a discussion about her medications -we will hold off on some of her medications on account of encephalopathy. Objective: Physical exam: General: Alert, Oriented x3, Cooperative, lethargic HEENT: Atraumatic, PERRLA, EOMI, Normocephalic Neck: Supple Lungs: Diminished Cardiovascular: Regular rate, Regular Rhythm, Normal S1, Normal S2, No murmurs Abdomen: Bowel Sounds Present, Soft, Non Tender, Non-Distended, No Hepato- splenomegaly Extremities: No edema Skin: No rashes, No breakdown Musculoskeletal: No Tenderness to Palpation of Joints or Extremities Lymphatic: No Cervical, Supraclavicular, or Inguinal Adenopathy Neurological: Cranial nerves II-XII grossly intact, Neuro grossly intact Psych/Mental Status: Normal Affect, Appropriate - Physical Exam Vitals/I&O's: Vital Signs Temp Pulse Resp BP Pulse Ox 97.8 F 54 L 16 136/49 H 98 08/10/20 08:33 08/10/20 08:33 08/10/20 08:33 08/10/20 08:33 08/10/20 08:33 Oxygen Flow Rate (L/min) 2 Oxygen Delivery Method Room Air Weight: 50.3 kg Body Mass Index (BMI) 19.8 Intake and Output for Last 24 Hours 08/08/20 08/09/20 08/10/20 23:59 23:59 23:59 Intake Total 729.12 / 829.12 684.47 / 684.47 0 / 0 Output Total 1000 / 1000 900 / 900 500 / 500 Balance -270.88 / -170.88 -215.53 / -215.53 -500 / -500 Microbiology Past 72 Hours 08/08/20 05:02 Urine, Clean Catch Legionella Antigen - Final 08/08/20 05:02 Urine, Clean Catch Streptococcus pneumoniae Antigen (M - Final 08/07/20 21:45 Mucosa - Nasopharyngeal Respiratory Panel (PCR) - Final Laboratory Results 08/10/20 08:10: WBC 2.8 L, RBC 3.00 L, Hgb 8.9 L, Hct 27.4 L, MCV 91.3, MCH 29.7, MCHC 32.5, RDW Std Deviation 50.0 H, RDW Coeff of Dre 15.2 H, Plt Count 101 L, MPV 12.6 H, Immature Gran % (Auto) 0.000, Neut % (Auto) 56.7, Lymph % (Auto) 20.9, Banner % (Auto) 17.3 H, Eos % (Auto) 4.0, Baso % (Auto) 1.1 H, Absolute Neuts (auto) 1.6 L, Absolute Lymphs (auto) 0.58 L, Nucleated RBC % 0 08/10/20 08:10: Sodium Pending, Potassium Pending, Chloride Pending, Carbon Dioxide Pending, Anion Gap Pending, BUN Pending, Creatinine Pending, Est GFR (MDRD) Af Amer Pending, Est GFR (MDRD) Non-Af Pending, BUN/Creatinine Ratio Pending, Glucose Pending, Calcium Pending, Total Bilirubin Pending, AST Pending, ALT Pending, Alkaline Phosphatase Pending, Total Protein Pending, Albumin Pending Current Medications Acetaminophen (Acetaminophen 325 Mg Tablet) 650 mg PO Q6H PRN PRN PRN Reason: Pain Score 1-10/Temp > 100.7 F Al Hydroxide/Mg Hydroxide (Mag Hydrox/Al Hydrox/Simeth 30 Ml Udc) 30 ml PO Q6H PRN PRN PRN Reason: Gastric Burning Albuterol Sulfate (Albuterol 2.5 Mg/3 Ml Vial.Neb.) 2.5 mg INHALATION Q2H PRN PRN PRN Reason: Dyspnea, wheezing Aspirin (Aspirin E.C. 81 Mg Tablet) 81 mg PO DAILY@0800 [facility] Last Admin: 08/09/20 10:40 Dose: 81 mg Documented by: Carvedilol (Carvedilol 3.125 Mg Tablet) 3.125 mg PO BID [facility] Fluoxetine HCl (Fluoxetine 20 Mg Capsule) 20 mg PO DAILY [facility] Last Admin: 08/09/20 10:38 Dose: 20 mg Documented by: Furosemide (Furosemide 40 Mg Tablet) 40 mg PO DAILY [facility] Guaifenesin (Guaifenesin 10 Ml Udc (200mg/10ml)) 20 ml PO Q4H PRN PRN PRN Reason: COUGH Heparin Sodium (Porcine) (Heparin Injection (Vial) 5,000 Unit/Ml Vial) 0 unit IV UD PRN; Protocol PRN Reason: dose adjustment Hydralazine HCl (Hydralazine 20 Mg/Ml Vial) 10 mg IV Q4H PRN PRN PRN Reason: SBP > 160 Last Admin: 08/09/20 08:07 Dose: 10 mg Documented by: Hydroxychloroquine Sulfate (Hydrox[facility] 200 Mg Tablet) [facility] Last Admin: 08/09/20 17:52 Dose: 200 mg Documented by: Ferric Sodium Gluconate Complex 250 mg/ Sodium Chloride 270 mls @ 135 mls/hr IV DAILY [facility] Stop: 08/11/20 11:59 Last Infusion: 08/09/20 12:50 Dose: Infused Documented by: Leflunomide (Leflunomide 10 Mg Tablet) 20 mg PO DAILY [facility] Last Admin: 08/09/20 10:40 Dose: 20 mg Documented by: Magnesium Hydroxide (Magnesium Hydroxide 30 Ml Udc) 30 ml PO DAILY PRN PRN PRN Reason: Constipation Nitroglycerin (Nitroglycerin (Inpatient Use) 0.4 Mg Tab.Subl) 0.4 mg SUBLINGUAL Q5M PRN PRN Reason: CARDIAC/CHEST PAIN Nutritional Formula (Lactose Free) (Ensure Enlive 120 Ml Liquid) 120 ml PO 4X/DAY [facility] Last Admin: 08/09/20 21:32 Dose: Not Given Documented by: Ondansetron HCl (Ondansetron 4 Mg/2 Ml Vial) 4 mg IV Q8H PRN PRN PRN Reason: NAUSEA/VOMITING Pantoprazole Sodium (Pantoprazole Sodium 40 Mg Tablet) 40 mg PO BID [facility] Last Admin: 08/09/20 21:32 Dose: 40 mg Documented by: Pregabalin (Pregabalin 75 Mg Capsule) 75 mg PO BID [facility] Psyllium Hydrophilic Mucilloid (Psyllium 1 Packet) 1 packet PO DAILY PRN PRN PRN Reason: Constipation Senna/Docusate Sodium (Senna/Docusate Sodium 1 Tablet) 2 tablet PO BID PRN PRN PRN Reason: Constipation Sodium Chloride (0.9% Saline Lock 10 Ml Syringe) 10 - 40 ml IV UD PRN PRN Reason: SALINE FLUSH Last Admin: 08/09/20 08:09 Dose: 10 ml Documented by: Throat Lozenges (Benzocaine/Menthol 1 Lozenge) 1 lozenge MUCOUS MEM Q2H PRN PRN PRN Reason: SORE THROAT Discharge Diet: Low fat/ Low Cholesterol, 6 Cup Fluid Restriction, 2000 mg Sodium Diet Discharge Activity: Return to Normal Activity Home Medications: Medications to take at Discharge Aspirin E.C. [Ecotrin] 81 mg PO DAILY@0800 07/14/13 Omeprazole [Prilosec] 40 mg PO BID 07/14/13 Fluoxetine [Prozac] 20 mg PO DAILY 10/11/16 Leflunomide [Arava] 20 mg PO DAILY 12/03/16 Hydroxychloroquine [Plaquenil] 200 mg PO BIDCM 02/01/17 Ergocalciferol [Vitamin D] 1.25 mg PO .COMPLEX 02/12/20 Ondansetron [Zofran Odt] 4 mg PO Q8H PRN PRN 02/12/20 Acetaminophen [Tylenol Tablet] 650 mg PO Q6H PRN PRN tab 08/10/20 Carvedilol [Coreg (Beta Estevan)] 3.125 mg PO BID 30 Days #60 tab 08/10/20 Ensure Enlive 120 ml PO 4X/DAY 30 Days #120 liquid 08/10/20 Ferrous Sulfate [Iron] 325 mg PO DAILY 30 Days #30 tab 08/10/20 Furosemide [Lasix] 40 mg PO DAILY 30 Days #30 tab 08/10/20 Pregabalin [Lyrica] 75 mg PO BID 30 Days #60 cap 08/10/20 Psyllium [Metamucil] 1 packet PO DAILY PRN PRN 30 Days #30 packet 08/10/20 Senna/Docusate Sodium [Senokot-S] 2 tab PO BID PRN PRN 30 Days #60 tab 08/10/20 Following Prescriptions Were Given to Patient: Carvedilol [Coreg (Beta Estevan)] 3.125 mg PO BID 30 Days #60 tab Transmission Status: [facility] Ensure Enlive 120 ml PO 4X/DAY 30 Days #120 liquid Transmission Status: Received by [facility] Ferrous Sulfate [Iron] 325 mg PO DAILY 30 Days #30 tab Transmission Status: [id number] [place] [address] Furosemide [Lasix] 40 mg PO DAILY 30 Days #30 tab Transmission [facility]: [id number] [place] [address] Pregabalin [Lyrica] 75 mg PO BID 30 Days #60 cap Transmission Status: [id number] [place] [address] Psyllium [Metamucil] 1 packet PO DAILY PRN PRN 30 Days #30 packet PRN Reason: Constipation Transmission Status: [facility] Senna/Docusate Sodium [Senokot-S] 2 tab PO BID PRN PRN 30 Days #60 tab PRN Reason: Constipation Transmission Status: [id number] [place] [address] Primary Care Physician: Bassam Brown DO [Primary Care Provider] - Please follow up with your Primary Care Physician in: within 2 weeks Disposition: Home with Home Health Minutes spent on discharge:: 40 Patient Condition:: Stable Medical Necessity - Tobacco Use Smoking Status: Never smoker Tobacco Use: Non-smoker Meaningful Use Info Meaningful Use Diagnoses (Choose all that apply): CHF - CHF CARMELLA/ARB ordered at discharge?: No Reason CARMELLA/ARB not ordered?: Worsening renal function Documented LVEF (%): 55 Inpatient E&M: [id number] Disch Hosp
[2020-08-10 09:17] LABS: ALB/GLOB Ratio 0.8 RATIO (0.9-2.4); AST(SGOT) 27 U/L (15-37); Alanine Aminotransfer ALT/SGPT 42 U/L (13-56); Alkaline Phosphatase 135 U/L (45-117); Anion Gap 4 (5-15); BUN 44 mg/dL (7-18); Calcium,Total 8.8 mg/dL (8.5-10.1); Chloride 108 mmol/L (98-107); Creatinine, Serum 1.42 mg/dL (0.55-1.02); EST Glomerular Filtration Rate 37 mL/min (>60); Est Glom Filt Rate - Afr Amer 45 mL/min (>60); Estimated Creatinine Clearance 23.33 ml/min; Globulin 3.6 g/dL (2.2-4.2); Glucose 95 mg/dL (74-106); Potassium 3.8 mmol/L (3.5-5.1); Protein, Total 6.6 g/dL (6.4-8.2); Sodium Level 143 mmol/L (136-145)
[2020-08-10] MEDS: Hydroxychloroquine 200 MG Tablet PO (09:35)
[2020-08-10] MEDS: Aspirin E.C. 81 MG Tablet PO (09:35)
[2020-08-10] MEDS: FLUoxetine 20 MG Capsule PO (09:35)
[2020-08-10] MEDS: Pregabalin 75 MG Capsule PO (09:35)
[2020-08-10] MEDS: Pantoprazole Sodium 40 MG Tablet PO (09:35)
[2020-08-10] MEDS: Furosemide 40 MG Tablet PO (09:35)
[2020-08-10 09:36] LABS: Platelet Estimate ADEQUATE (ADEQ)
[2020-08-10] MEDS: Magnesium Hydroxide 30 ML UDC PO (09:36)
[2020-08-10] MEDS: Leflunomide 10 MG TABLET 20 MG PO (09:36)
[2020-08-10 09:38] LABS: Microcytosis 1+
--- NOTE | 2020-08-10 09:56 | CASEMGMT ---
Addendum entered by Maru Richards 08/10/20 10:18: PAMELA called Keith and let him know per RN patient's daughter will be here at noon today to pick her up. He asked about therapy. SW told him she did therapy this am. SW explained she was stand by and contact guard for standing. They did not walk her as per patient she normally stands and pivots to wheelchair. Maru GARCIA ALARM FIELD TECHNICIAN Original Note: Patient's RN called Reinaldo Stewart to give report. She spoke with Keith. PAMELA will notify Keith when patient is returning. Maru GARCIA MSW
[2020-08-10] MEDS: Carvedilol 3.125 MG TABLET PO (10:20)
--- NOTE | 2020-08-10 10:41 | PHA.DC.MR ---
Pharmacy Service has performed discharge medication reconciliation for this patient. The patient's discharge medication list was reviewed for discrepancies and discrepancies were resolved. Home Medications Aspirin E.C. [Ecotrin] 81 mg PO DAILY@0800 07/14/13 Omeprazole [Prilosec] 40 mg PO BID 07/14/13 Fluoxetine [Prozac] 20 mg PO DAILY 10/11/16 Leflunomide [Arava] 20 mg PO DAILY 12/03/16 Hydroxychloroquine [Plaquenil] 200 mg PO BIDCM 02/01/17 Ergocalciferol [Vitamin D] 1.25 mg PO .COMPLEX 02/12/20 Ondansetron [Zofran Odt] 4 mg PO Q8H PRN PRN 02/12/20 Acetaminophen [Tylenol Tablet] 650 mg PO Q6H PRN PRN tab 08/10/20 Carvedilol [Coreg (Beta Estevan)] 3.125 mg PO BID 30 Days #60 tab 08/10/20 Ensure Enlive 120 ml PO 4X/DAY 30 Days #120 liquid 08/10/20 Ferrous Sulfate [Iron] 325 mg PO DAILY 30 Days #30 tab 08/10/20 Furosemide [Lasix] 40 mg PO DAILY 30 Days #30 tab 08/10/20 Pregabalin [Lyrica] 75 mg PO BID 30 Days #60 cap 08/10/20 Psyllium [Metamucil] 1 packet PO DAILY PRN PRN 30 Days #30 packet 08/10/20 Senna/Docusate Sodium [Senokot-S] 2 tab PO BID PRN PRN 30 Days #60 tab 08/10/20
[2020-08-11 13:42] LABS: Pathologist Review Reviewed
== END 2020-08-10 12:07 | disposition home or self-care (01) | DRG 291 ==
LOC: ED 23:47 → PCU 08-08 00:24
PROVIDERS: Admitting Provider Family Medicine; Emergency Provider Emergency Medicine; PCP Family Medicine; Visit Provider Internal Medicine
DX: I13.0 Hypertensive heart and chronic kidney disease with heart failure and stage 1 through stage 4 chronic kidney disease, or unspecified chronic kidney disease (principal); I50.33 Acute on chronic diastolic (congestive) heart failure; G92 Toxic encephalopathy; I26.99 Other pulmonary embolism without acute cor pulmonale; E43 Unspecified severe protein-calorie malnutrition; N18.4 Chronic kidney disease, stage 4 (severe); R06.89 Other abnormalities of breathing; R09.02 Hypoxemia; R00.1 Bradycardia, unspecified; D69.6 Thrombocytopenia, unspecified; D50.9 Iron deficiency anemia, unspecified; I08.3 Combined rheumatic disorders of mitral, aortic and tricuspid valves; I27.29 Other secondary pulmonary hypertension; E78.5 Hyperlipidemia, unspecified; D63.1 Anemia in chronic kidney disease; G89.4 Chronic pain syndrome; F32.9 Major depressive disorder, single episode, unspecified; F41.9 Anxiety disorder, unspecified; M06.9 Rheumatoid arthritis, unspecified; G62.9 Polyneuropathy, unspecified; R29.6 Repeated falls; T40.2X5A Adverse effect of other opioids, initial encounter; Y92.239 Unspecified place in hospital as the place of occurrence of the external cause; M25.561 Pain in right knee; M25.551 Pain in right hip; Z66 Do not resuscitate; F03.90 Unspecified dementia, unspecified severity, without behavioral disturbance, psychotic disturbance, mood disturbance, and anxiety; K21.9 Gastro-esophageal reflux disease without esophagitis; Z79.82 Long term (current) use of aspirin; Z79.899 Other long term (current) drug therapy
CPT/HCPCS: 36415; 36600; 70450; 71045; 72125; 73502; 73564; 78582; 80053; 80061; 81001; 82274; 82728; 82803; 82962; 83540; 83550; 83605; 83615; 83735; 83880; 84145; 84439; 84443; 84484; 85014; 85018; 85025; 85379; 85610; 85730; 86140; 86850; 86900; 86901; 87449; 87633; 87635; 87641; 93005; 93306; 93970; 97110; 97162; 97166; 97530; 97535; 97802; 99251; 99285; A9540; A9567; J7050; A4216; G0463; J1940; J2310; J2405; J2916; U0002

== ENCOUNTER 2020-09-19 20:40 | Inpatient (IN) | payer MEDICARE, MEDICAID, SELFPAY ==
[2020-08-08 16:04] VITALS: BMI 19.8
[2020-09-19 20:41] VITALS: BP 140/82; PULSE 70; RESP 18; TEMP 36.3; O2SAT 100; BMI 21.5
--- NOTE | 2020-09-19 21:12 | CT_ITS ---
HISTORY: FELL 3 TIMES TODAY PAIN RT SHOULDER WITH CONFUSION ADDITIONAL HISTORY: None provided. COMPARISON: 08/07/2020 EXAMINATION/TECHNIQUE: CT Head or Brain W/O Contrast Injection. Axial, coronal and sagittal images. Number of images including paperwork: 245. A radiation dose optimization technique was used for this scan. FINDINGS: BRAIN: No acute hemorrhage or mass. No definite acute infarct; MRI more sensitive. White matter hypodensity is nonspecific but most commonly seen with chronic ischemic changes. Generalized atrophy. VENTRICULAR SYSTEM: No hydrocephalus. PARANASAL SINUSES AND MASTOIDS: No air-fluid level in the imaged extent. Mucous retention cyst versus polyp left maxillary sinus. ORBITS: Unremarkable imaged extent. SKELETON AND SOFT TISSUES: Calvarium intact. ASPECTS score: Not applicable. CT/Brain/Head without Contrast IMPRESSION: No acute intracranial abnormality. Chronic involutional and white matter changes. Individualized dose optimization techniques were used for this CT. at 2216 Reported and signed by: Jasmine Watson MD Electronically Signed: Jasmine Watson MD at 22:16 EST Tel , Service support ,
--- NOTE | 2020-09-19 21:12 | EKG12_ITS ---
Test Reason : FALL Blood Pressure : / mmHG Vent. Rate : 070 BPM Atrial Rate : 070 BPM P-R Int : 202 ms QRS Dur : 134 ms QT Int : 458 ms P-R-T Axes : 071 -47 079 degrees QTc Int : 494 ms Normal sinus rhythm with sinus arrhythmia Left axis deviation Left ventricular hypertrophy with QRS widening and repolarization abnormality Abnormal ECG Confirmed by JD LARES, CATRINA ([id number]), primer expeditor and drier SHANIQUA MCKEON ([id number]) on 09/21/2020 10:54:18 AM Referred By: Jazmin Glover Confirmed By:CATRINA MILES MD
--- NOTE | 2020-09-19 21:13 | CT_ITS ---
HISTORY: FELL 3 TIMES TODAY PAIN RT SHOULDER WITH CONFUSION ADDITIONAL HISTORY: None provided COMPARISON: 08/07/2020 TECHNIQUE: Noncontrast CT images of the cervical spine. 2D images were reviewed to aid in assessment of the cervical spine. A radiation dose optimization technique was used for this scan. Number of images including paperwork: 395 FINDINGS: BONES: No acute fracture. No suspicious bone lesion. VERTEBRAL ALIGNMENT: No traumatic subluxation. Preservation of the normal cervical lordosis. DISCS AND JOINTS: Mild multilevel discogenic degenerative changes. Facet arthropathy. SPINAL CANAL AND FORAMINA: No critical canal stenosis. SOFT TISSUES: No prevertebral soft tissue swelling. No pathologic-appearing cervical adenopathy. Vascular calcification. LUNG APICES: Unremarkable. PARANASAL SINUSES: Unremarkable imaged portions if any. CT/Spine Cervical without Contras IMPRESSION: No acute osseous abnormality. Cervical spondylosis. Individualized dose optimization techniques were used for this CT. at 2218 Reported and signed by: Jasmine Watson MD Electronically Signed: Jasmine Watson MD at 22:18 EST Tel , Service support ,
--- NOTE | 2020-09-19 21:14 | RAD_ITS ---
HISTORY: FELL 3 TIMES TODAY AT [facility].. COMPLAINING OF RT SHOULDER PAIN ADDITIONAL HISTORY: None provided. EXAMINATION/TECHNIQUE: XR Shoulder Min 2 Views Right Number of images including paperwork: 2 COMPARISON: None FINDINGS: BONES: No acute fracture. Mineralization appears decreased. JOINTS: No subluxation. Degenerative changes of the glenohumeral and acromioclavicular joints. States SOFT TISSUES: No distinct foreign body. RAD/Shoulder min 2 Views IMPRESSION: Degenerative changes without acute osseous abnormality. at 2240 Reported and signed by: Jasmine Watson MD Electronically Signed: Jasmine Watson MD at 22:40 EST Tel , Service support ,
--- NOTE | 2020-09-19 21:14 | ED.VIS.GEN ---
History of Present Illness Chief Complaint: Fall Narrative: This patient is an 84-year-old female who presents with multiple falls. She presents from a nursing facility. She had 3 falls today. She was complaining of some right shoulder pain. She is normally alert and oriented x3. She is very confused. She had a fever of 101. The patient is unable to provide any further direct history. History is obtained from nursing and EMS report. Past Medical History - Allergies and Home Meds Allergies/Adverse Reactions: Allergies infliximab [From Remicade] Allergy (Verified 09/19/20 20:47) Hives Penicillins Allergy (Verified 09/19/20 20:47) Hives methotrexate Adverse Reaction (Verified 09/19/20 20:47) Unknown Primary Care Physician: Bassam Brown DO [Primary Care Provider] - Past Medical History: - - Hypertension, heart failure, osteoarthritis Surgical History: cholecystectomy, - - Lumbar back surgery, cholecystectomy, intervention for renal stones. Smoking Status: Never smoker - Family History Maternal Family History: Reports: Hypertension Paternal Family History: Reports: Hypertension Review of Systems ROS: Unable to Obtain General: Reports: Fever Physical Exam Vital Signs/Narrative: Vital Signs Temp Pulse Resp BP Pulse Ox 09/19/20 20:41 97.3 F L 70 18 140/82 H 100 Inital Vital Signs reviewed: Yes Head: Normocephalic, Atraumatic Eyes: EOMI ENT: Moist mucous membranes Neck: Supple, Nontender Cardiovascular: Regular rate, Regular rhythm Respiratory: No distress, CTA bilaterally Abdomen: Soft, Nontender Extremities: - - Patient does not appear to have any pain on palpation of the extremities and no pain with passive range of motion x4 extremities Skin: Normal color Neurological: Alert, - - Patient oriented to month, age, person she does not appear to have focal or lateralizing neurological deficits Psychological: Normal affect Diagnostic/Tx/Re-eval Impressions Brain CT 09/19/20 21:12 IMPRESSION: No acute intracranial abnormality. Chronic involutional and white matter changes. Individualized dose optimization techniques were used for this CT. at 2216 Reported and signed by: Jasmine Watson MD Electronically Signed: Jasmine Watson MD at 22:16 EST Tel , Service support , Cervical Spine CT 09/19/20 21:13 IMPRESSION: No acute osseous abnormality. Cervical spondylosis. Individualized dose optimization techniques were used for this CT. at 2218 Reported and signed by: Jasmine Watson MD Electronically Signed: Jasmine Watson MD at 22:18 EST Tel , Service support , Shoulder X-Ray 09/19/20 21:14 IMPRESSION: Degenerative changes without acute osseous abnormality. at 2240 Reported and signed by: Jasmine Watson MD Electronically Signed: Jasmine Watson MD at 22:40 EST Tel , Service support , Chest X-Ray 09/19/20 22:00 IMPRESSION: No acute cardiopulmonary abnormality. at 2239 Reported and signed by: Jasmine Watson MD Electronically Signed: Jasmine Watson MD at 22:39 EST Tel , Service support , 09/19/20 21:12 Brain/Head without Contrast [CT] Stat 09/19/20 21:13 CT Cervical [Spine Cervical without Contras] [CT] Stat 09/19/20 21:14 Shoulder min 2 Views [RAD] Stat 09/19/20 22:00 Chest 1 View (Portable) [RAD] Stat 09/19/20 22:10 Mucosa - Nose SARS-CoV-2 Antigen (Rapid) - Final Laboratory Results 09/19/20 09/19/20 09/19/20 21:46 21:46 21:46 WBC 4.5 RBC 3.01 L Hgb 9.0 L Hct 27.4 L MCV 91.0 MCH 29.9 MCHC 32.8 RDW Std Deviation 49.3 H RDW Coeff of Dre 14.8 H Plt Count 142 L MPV 12.0 Immature Gran % (Auto) 0.400 Neut % (Auto) 61.6 Lymph % (Auto) 19.8 [place] % (Auto) 14.3 H Eos % (Auto) 3.5 Baso % (Auto) 0.4 Absolute Neuts (auto) 2.8 Absolute Lymphs (auto) 0.90 Nucleated RBC % 0 Sodium 142 Potassium 4.3 Chloride 111 H Carbon Dioxide 25.0 Anion Gap 6 BUN 72 H Creatinine 2.22 H Estim Creat Clear Calc 14.92 Est GFR (MDRD) Af Amer 27 L Est GFR (MDRD) Non-Af 22 L BUN/Creatinine Ratio 32.4 H Glucose 96 Lactic Acid 1.2 Calcium 8.3 L Total Bilirubin 0.30 AST 19 ALT 15 Alkaline Phosphatase 79 Total Protein 6.9 Albumin 3.2 Globulin 3.7 Albumin/Globulin Ratio 0.9 Urine Color Urine Clarity Urine pH Ur Specific [place] Urine Protein Urine Glucose (UA) Urine Ketones Urine Occult Blood Urine Nitrite Urine Bilirubin Urine Urobilinogen Ur Leukocyte Esterase Urine RBC Urine WBC Ur Squamous Epith Cells Urine Bacteria Urine Mucus 09/19/20 22:20 WBC RBC Hgb Hct MCV MCH MCHC RDW Std Deviation RDW Coeff of Dre Plt Count MPV Immature Gran % (Auto) Neut % (Auto) Lymph % (Auto) [place] % (Auto) Eos % (Auto) Baso % (Auto) Absolute Neuts (auto) Absolute Lymphs (auto) Nucleated RBC % Sodium Potassium Chloride Carbon Dioxide Anion Gap BUN Creatinine Estim Creat Clear Calc Est GFR (MDRD) Af Amer Est GFR (MDRD) Non-Af BUN/Creatinine Ratio Glucose Lactic Acid Calcium Total Bilirubin AST ALT Alkaline Phosphatase Total Protein Albumin Globulin Albumin/Globulin Ratio Urine Color Yellow Urine Clarity Clear Urine pH 6.0 Ur Specific [place] 1.010 Urine Protein Negative Urine Glucose (UA) Normal Urine Ketones Negative Urine Occult Blood Negative Urine Nitrite Negative Urine Bilirubin Negative Urine Urobilinogen Normal Ur Leukocyte Esterase Negative Urine RBC 0 SEEN Urine WBC 0 SEEN Ur Squamous Epith Cells 0 SEEN Urine Bacteria 0 SEEN Urine Mucus 0 SEEN - Medical Decision Making EKG shows normal sinus rhythm with sinus arrhythmia and LVH with QRS widening. Rate is 70. This is similar to prior. Laboratory studies are notable for creatinine of 2.2 which is up from previous of 1.4. Patient was given IV fluids. One-view portable chest x-ray obtained. On my interpretation the shows no acute process. 2 view right shoulder x-ray obtained. On my interpretation this shows no acute fracture. X-rays were read by radiology and agree. CT of the head and cervical spine showed no acute intracranial hemorrhage or acute intracranial process no cervical spinal fracture. UA unremarkable. Covid testing negative. Given the patient's confusion and WILLA with multiple falls I do feel she meets criteria for hospitalization. Patient will be discussed with the hospitalist and admitted. ED Disposition - Plan for ED Patient: Disposition: Acute Care Hospital [facility] Diagnosis: Confusion, Multiple falls, Febrile illness, WILLA (acute kidney injury) Referrals: Bassam Brown DO [Primary Care Provider] -
--- NOTE | 2020-09-19 22:00 | RAD_ITS ---
HISTORY: FEVER AND FELL 3 TIMES TODAY AT ALF. PATIENT COMPLAINING OF RT SHOULDER PAIN ADDITIONAL HISTORY: None provided. EXAMINATION/TECHNIQUE: XR Chest 1 View AP/PA Number of images including paperwork: 1 COMPARISON: 08/07/2020 FINDINGS: LUNGS AND PLEURA: No consolidation, mass or pleural effusion. Elevated right hemidiaphragm. CARDIAC SILHOUETTE: Stable. MEDIASTINUM AND SOURAV: Aortic calcification. UPPER ABDOMEN: Colon interposed between liver and diaphragm. SKELETON AND SOFT TISSUES: No acute skeletal findings. Degenerative changes. OTHER DEVICES AND HARDWARE: None. RAD/Chest 1 View (Portable) IMPRESSION: No acute cardiopulmonary abnormality. at 2239 Reported and signed by: Jasmine Watson MD Electronically Signed: Jasmine Watson MD at 22:39 EST Tel , Service support ,
[2020-09-19 22:03] LABS: Absolute Neutrophil Count 2.8 X10^3/uL (2.0-7.7); Basophil# 0.02 X10^3/uL; Basophil% 0.4 % (0-1); Eosinophil# 0.16 X10^3/uL; Eosinophils% 3.5 % (0-5); Hematocrit 27.4 % (37-47); Lymphocyte % 19.8 % (19-41); Mean Corp Hgb Conc 32.8 g/dL (32-36); Mean Corpuscular Hgb 29.9 pg (27.0-32.0); Monocyte# 0.65 X10^3/uL; Monocyte% 14.3 % (0-10); NRBC Flagged by Analyzer 0 % (0-5); Neutrophil # 2.79 X10^3/uL (2.7-7.7); Neutrophil % 61.6 % (47-70); Platelet Count 142 K/mm3 (150-450); RBC Distribution Width CV 14.8 % (11.6-14.6); RBC Distribution Width SD 49.3 fl (35.1-43.9); Red Blood Count 3.01 M/mm3 (4.2-5.4); White Blood Count 4.5 K/mm3 (4.4-11.0)
[2020-09-19 22:19] LABS: ALB/GLOB Ratio 0.9 RATIO (0.9-2.4); AST(SGOT) 19 U/L (15-37); Alanine Aminotransfer ALT/SGPT 15 U/L (13-56); Albumin, Serum 3.2 g/dL (3.2-5.0); Alkaline Phosphatase 79 U/L (45-117); Anion Gap 6 (5-15); BUN 72 mg/dL (7-18); BUN/Creat Ratio 32.4 RATIO (10-20); Calcium,Total 8.3 mg/dL (8.5-10.1); Chloride 111 mmol/L (98-107); Creatinine, Serum 2.22 mg/dL (0.55-1.02); EST Glomerular Filtration Rate 22 mL/min (>60); Est Glom Filt Rate - Afr Amer 27 mL/min (>60); Estimated Creatinine Clearance 14.92 ml/min; Globulin 3.7 g/dL (2.2-4.2); Glucose 96 mg/dL (74-106); Potassium 4.3 mmol/L (3.5-5.1); Protein, Total 6.9 g/dL (6.4-8.2); Sodium Level 142 mmol/L (136-145)
[2020-09-19 22:20] VITALS: BP 193/67; PULSE 72; RESP 18; TEMP 37.2; O2SAT 98
[2020-09-19 22:26] LABS: Lactic Acid 1.2 mmol/L (0.4-1.9)
[2020-09-19] MEDS: 0.9% Normal Saline 1,000 ML 999 ML IV (22:31)
[2020-09-19 22:32] LABS: Bacteria 0 SEEN /hpf (None Seen); Mucous, Urine 0 SEEN /hpf (<or=2+); Red Blood Cells-Urine 0 SEEN /hpf (0-5); Squamous Epithelial Cells - UA 0 SEEN /hpf (5-10); White Blood Cells 0 SEEN /hpf (0-5)
[2020-09-19 22:48] LABS: Color, Urine Yellow (Yellow); Glucose, Dipstick Normal (Normal); Ketone-Dipstick Negative (Negative); Leukocyte Esterase-Dipstick Negative /ul (Negative); Nitrite-Dipstick Negative (Negative); Occult Blood-Urine Negative /ul (Negative); Protein-Dipstick Negative (Negative); Urine Bilirubin Dipstick Negative (Negative); Urine Clarity Clear (Clear); Urine Urobilinogen Normal (Normal)
[2020-09-19 23:14] VITALS: BP 178/80; PULSE 69; RESP 18; TEMP 36.6; O2SAT 98
--- NOTE | 2020-09-19 23:33 | HP.PCM_ITS ---
Problem List (1) Multiple falls Status: Acute (2) Febrile illness Status: Acute (3) WILLA (acute kidney injury) Status: Acute (4) Chronic diastolic (congestive) heart failure Status: Chronic (5) Hyperlipidemia Status: Chronic Qualifiers: Hyperlipidemia type: unspecified Qualified Code(s): E78.5 - Hyperlipidemia, unspecified (6) CKD (chronic kidney disease), stage III Status: Chronic (7) Chronic anemia Status: Chronic (8) Chronic pain syndrome Status: Chronic (9) Depression Status: Chronic Qualifiers: Depression Type: unspecified Qualified Code(s): F32.9 - Major depressive disorder, single episode, unspecified (10) Rheumatoid arthritis Status: Chronic Qualifiers: Rheumatoid arthritis location: unspecified site Rheumatoid factor presence: unspecified presence Qualified Code(s): M06.9 - Rheumatoid arthritis, unspecified History of Present Illness Date of Admission: 09/19/20 Chief Complaint: Fall. The patient is a 84 year old F with past medical history as mentioned above was referred to the ED from the halfway because of multiple falls. Reportedly, patient had 3 falls today. Currently, she is alert and oriented x2, disoriented to time. She is a poor informant and was not able to provide detailed history. Reportedly, she complained of right shoulder pain. Nursing staff reported that patient had a fever of 101 Fahrenheit today and she was confused. Patient was not able to provide any more details. She had a history of stage III chronic kidney disease and her creatinine has been around 1.4 to 1.9 mg/dL, most recent was 1.42 last month and admission creatinine is 2.22. She had a history of rheumatoid arthritis and she has been on Plaquenil and leflunomide. She will history of hypertension which has been under control with Coreg and Lasix. In the emergency department, she was afebrile, blood pressure was elevated, other vital signs were stable. Routine blood work was remarkable for chronic anemia, chronic thrombocytopenia, BUN of 72 and creatinine of 2.22. Lactic acid was normal. LFT was unremarkable. Urinalysis showed no evidence of infection. CT scan brain showed no acute findings. CT scan cervical spine showed no acute fractures. X-ray of the right shoulder showed no acute osseous abnormality. Chest x-ray showed no acute infiltrate or consolidation. COVID-19 antigen came back negative. She is being admitted for acute kidney injury on top of stage III chronic kidney disease, functional decline, physical debility as well as acute febrile illness without evidence of infection. Past Medical History Past Medical History (Chronic Problems): Chronic Problems (Last Reviewed 09/08/19 @ 13:21 by Shyann Eldridge) Nonrheumatic mitral (valve) insufficiency (Chronic) Mild (1+) per echo 03/20/2017 Nonrheumatic aortic (valve) insufficiency (Chronic) Mild (1+) per echo 03/20/2017 Nonrheumatic tricuspid (valve) insufficiency (Chronic) Mild (1+) per echo 03/20/2017 Secondary pulmonary hypertension (Chronic) Chronic diastolic (congestive) heart failure (Chronic) HTN (hypertension) (Chronic) Hyperlipidemia (Chronic) CKD (chronic kidney disease), stage III (Chronic) Chronic anemia (Chronic) Chronic pain syndrome (Chronic) Depression (Chronic) Rheumatoid arthritis (Chronic) Peripheral neuropathy (Chronic) Elevated hemidiaphragm (Chronic) Medical History: Medical History (Last Reviewed 09/08/19 @ 13:21 by Shyann Eldridge) Nonrheumatic mitral (valve) insufficiency (Chronic) I34.0 Mild (1+) per echo 03/20/2017 Nonrheumatic aortic (valve) insufficiency (Chronic) I35.1 Mild (1+) per echo 03/20/2017 Nonrheumatic tricuspid (valve) insufficiency (Chronic) I36.1 Mild (1+) per echo 03/20/2017 Secondary pulmonary hypertension (Chronic) Chronic diastolic (congestive) heart failure (Chronic) I50.32 HTN (hypertension) (Chronic) I10 Hyperlipidemia (Chronic) E78.5 CKD (chronic kidney disease), stage III (Chronic) N18.3 Chronic anemia (Chronic) D64.9 Chronic pain syndrome (Chronic) G89.4 Depression (Chronic) F32.9 Rheumatoid arthritis (Chronic) M06.9 Peripheral neuropathy (Chronic) G62.9 Allergies infliximab [From Remicade] Allergy (Verified 09/19/20 20:47) Hives Penicillins Allergy (Verified 09/19/20 20:47) Hives methotrexate Adverse Reaction (Verified 09/19/20 20:47) Unknown Home Medications: Ambulatory Orders Medication Instructions Recorded Aspirin E.C. [Ecotrin] 81 mg PO DAILY@0800 07/14/13 Omeprazole [Prilosec] 40 mg PO BID 10/15/13 Fluoxetine [Prozac] 20 mg PO DAILY 10/11/16 Leflunomide [Arava] 20 mg PO DAILY 12/03/16 Hydroxychloroquine [Plaquenil] 200 mg PO BIDCM 02/01/17 Ergocalciferol [Vitamin D] 1.25 mg PO .COMPLEX 02/12/20 Ondansetron [Zofran Odt] 4 mg PO Q8H PRN PRN 02/12/20 Acetaminophen [Tylenol Tablet] 650 mg PO Q6H PRN PRN tab 08/10/20 Carvedilol [Coreg] 3.125 mg PO BID 09/19/20 Ferrous Sulfate 325 mg PO DAILY 09/19/20 Furosemide [Lasix] 40 mg PO DAILY 09/19/20 Pregabalin [Lyrica] 75 mg PO BID 09/19/20 Psyllium [Metamucil] 1 packet PO DAILY 09/19/20 Senna/Docusate Sodium [Senokot-S, 2 tab PO BID 09/19/20 Marylu-Colace] Sulfamethoxazole/Trimethoprim 1 tab PO BID 09/19/20 [Sulfamethoxazole-Tmp Ss Tablet] Surgical History: Surgical History (Last Updated 09/19/20 @ 23:[address] Jazmin Glover MD) S/P laparoscopic cholecystectomy Z90.49 Surgical History: cholecystectomy, - - Lumbar back surgery, cholecystectomy, intervention for renal stones. 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 Denies: Chills Eyes: Denies: Blurred vision, Cataracts, Drainage, Redness HEENT: Denies: Difficulty Hearing, Ear Pain, Eye Pain, Nasal Congestion, Sore Throat Cardiovascular: Denies: Chest Pain, Chest Pressure, Palpitations, Syncope Respiratory: Denies: Cough, Pleuritic Pain, Shortness of Breath, Sputum production, Wheezing Gastrointestinal: Denies: Abdominal Pain, Constipation, Diarrhea, Nausea, Vomiting Genitourinary: Denies: Dysuria, Frequency, Hematuria Musculoskeletal: Reports: Shoulder Pain. Denies: Arm Pain, Back Pain, Foot Pain Skin: Denies: Dryness, Rash Neurological: Reports: Confusion. Denies: Balance problems, Blurred vision, Double vision, Slurred speech, Headaches, Incoordination Psychiatric: Denies: Anxiety, Depression Endocrine: Denies: Change in Body Habitus, Polydipsia, Polyuria VTE Information - Inpt Only VTE Present on Admission: No VTE Mechan Device Prophylaxis: None VTE Pharm Prophylaxis ordered?: Yes Patient Problems: Active and Suspected Problems (Last Reviewed 09/08/19 @ 13:21 by Shyann Eldridge) Multiple falls (Acute) Febrile illness (Acute) WILLA (acute kidney injury) (Acute) - Physical Exam Vitals/I&O's: Vital Signs Temp Pulse Resp BP Pulse Ox 97.8 F 69 18 178/80 H 98 09/19/20 23:14 09/19/20 23:14 09/19/20 23:14 09/19/20 23:14 09/19/20 23:14 Oxygen Delivery Method Room Air Weight: 117 lb 15.157 oz Body Mass Index (BMI) 21.5 General: Alert, Cooperative, No apparent distress, Confused, Disoriented HEENT: Atraumatic, PERRLA, EOMI, Normocephalic Oral: No Gingival or Mucosal Lesions/ Ulcerations, Dry Mucosa Neck: Supple, No JVD, Negative Carotid Bruits, Trachea Midline, Thyroid Normal Size and Texture Lungs: Clear to auscultation, No rhonchi, No wheeze, No rales, Diminished Cardiovascular: Regular rate, Regular Rhythm, Normal S1, Normal S2, PMI Normal Abdomen: Bowel Sounds Present, Soft, Non Tender, Non-Distended, No Hepato- splenomegaly Extremities: No clubbing, No cyanosis, No edema Skin: No rashes, No breakdown Lymphatic: No Cervical, Supraclavicular, or Inguinal Adenopathy Neurological: Cranial nerves II-XII grossly intact, Motor Exam 5/5 strength throughout Psych/Mental Status: Appropriate, Flat Affect Microbiology Past 72 Hours 09/19/20 22:10 Mucosa - Nose SARS-CoV-2 Antigen (Rapid) - Final Laboratory Results 09/19/20 21:46: WBC 4.5, RBC 3.01 L, Hgb 9.0 L, Hct 27.4 L, MCV 91.0, MCH 29.9, MCHC 32.8, RDW Std Deviation 49.3 H, RDW Coeff of Dre 14.8 H, Plt Count 142 L, MPV 12.0, Immature Gran % (Auto) 0.400, Neut % (Auto) 61.6, Lymph % (Auto) 19.8, [place] % (Auto) 14.3 H, Eos % (Auto) 3.5, Baso % (Auto) 0.4, Absolute Neuts (auto) 2.8, Absolute Lymphs (auto) 0.90, Nucleated RBC % 0 09/19/20 21:46: Sodium 142, Potassium 4.3, Chloride 111 H, Carbon Dioxide 25.0, Anion Gap 6, BUN 72 H, Creatinine 2.22 H, Estim Creat Clear Calc 14.92, Est GFR (MDRD) Af Amer 27 L, Est GFR (MDRD) Non-Af 22 L, BUN/Creatinine Ratio 32.4 H, Glucose 96, Calcium 8.3 L, Total Bilirubin 0.30, AST 19, ALT 15, Alkaline Phosphatase 79, Total Protein 6.9, Albumin 3.2, Globulin 3.7, Albumin/Globulin Ratio 0.9 09/19/20 21:46: Lactic Acid 1.2 09/19/20 22:20: Urine Color Yellow, Urine Clarity Clear, Urine pH 6.0, Ur Specific [place] 1.010, Urine Protein Negative, Urine Glucose (UA) Normal, Urine Ketones Negative, Urine Occult Blood Negative, Urine Nitrite Negative, Urine Bilirubin Negative, Urine Urobilinogen Normal, Ur Leukocyte Esterase Negative, Urine RBC 0 SEEN, Urine WBC 0 SEEN, Ur Squamous Epith Cells 0 SEEN, Urine Bacteria 0 SEEN, Urine Mucus 0 SEEN Clinical Impression(s) from Imaging Studies Brain CT 09/19/20 21:12 IMPRESSION: No acute intracranial abnormality. Chronic involutional and white matter changes. Individualized dose optimization techniques were used for this CT. at 7869 Reported and signed by: Jasmine Watson MD Electronically Signed: Jasmine Watson MD at 22:16 EST Tel , Service support , Cervical Spine CT 09/19/20 21:13 IMPRESSION: No acute osseous abnormality. Cervical spondylosis. Individualized dose optimization techniques were used for this CT. at 2218 Reported and signed by: Jasmine Watson MD Electronically Signed: Jasmine Watson MD at 22:18 EST Tel , Service support , Shoulder X-Ray 09/19/20 21:14 IMPRESSION: Degenerative changes without acute osseous abnormality. at 2240 Reported and signed by: Jasmine Watson MD Electronically Signed: Jasmine Watson MD at 22:40 EST Tel , Service support , Chest X-Ray 09/19/20 22:00 IMPRESSION: No acute cardiopulmonary abnormality. at 2239 Reported and signed by: Jasmine Watson MD Electronically Signed: Jasmine Watson MD at 22:39 EST Tel , Service support , Assessment/Plan All Active Problems (Last Reviewed 09/08/19 @ 13:21 by Shyann Eldridge) Multiple falls (Acute) Febrile illness (Acute) WILLA (acute kidney injury) (Acute) This is an 84 years old female patient was referred to the ED from halfway because of reported fever and frequent falls, found to have WILLA on CKD and she is being admitted for treatment. #1 acute kidney injury on top of stage III chronic kidney disease: Most recent creatinine was last month and it was 1.42 and before that, it was in the range of 1.4 to 1.9 mg/dL. Admission creatinine is 2.22. It is likely due to poor oral intake in addition to diuretics. [facility] gentle IV fluids for hydration, avoid nephrotoxic drugs, input output chart, repeat CBC and BMP tomorrow morning, PT OT evaluation and treatment. #2 frequent falls/physical debility/functional decline: Due to age and multiple medical comorbidities. Imaging studies reviewed, no acute fractures. Plan for PT OT evaluation and treatment. #3 reported fever/febrile illness: Reportedly, patient had a fever of 101 at the halfway. In the ED, she was afebrile, no leukocytosis. Chest x-ray, urinalysis were unremarkable. COVID-19 antigen was negative. Blood culture sent. Plan to monitor. #4 chronic diastolic CHF: Clinically stable, compensated. Continue Coreg, hold Lasix because of acute kidney injury. #5 hypertension: Blood pressure was elevated in ED, continue Coreg, start IV hydralazine as needed. #6 chronic anemia: Hemoglobin and hematocrit are stable at baseline, no active bleeding. Continue iron supplement. #7 rheumatoid arthritis/chronic pain syndrome: Continue leflunomide and Plaquenil, Tylenol as needed. Will hold Lyrica for now. #8 depression: Continue Prozac. #9 DVT prophylaxis: Subcu heparin. This note was generated with [employer] dictation software. It may contain incorrect words, spelling, and punctuation that were not noted in checking the note before signing. Inpatient E&M: 43106 Init Hosp L2
[2020-09-20] VITALS (13 sets, daily range): BP systolic 130–204; BP diastolic 59–94; PULSE 68–84; RESP 18; TEMP 36.4–37.3; O2SAT 94–100; BMI 20.2
[2020-09-20] MEDS: 0.9% Normal Saline 1,000 ML 100 ML IV ×2 (00:44→14:49)
[2020-09-20] MEDS: hydrALAZINE 20 MG/ML Vial 10 MG IV (00:45)
[2020-09-20] MEDS: 0.9% Saline Lock 10 ML Syringe IV ×2 (05:17→18:21)
[2020-09-20 07:06] LABS: Absolute Lymphocyte Count 0.86 X10^3/uL (0.83-4.51); Absolute Neutrophil Count 3.1 X10^3/uL (2.0-7.7); Basophil# 0.03 X10^3/uL; Basophil% 0.6 % (0-1); Hematocrit 25.4 % (37-47); Hemoglobin 8.2 g/dL (12.0-15.0); Lymphocyte # 0.86 X10^3/ul (4.0); Lymphocyte % 17.4 % (19-41); Mean Corp Hgb Conc 32.3 g/dL (32-36); Mean Corpuscular Hgb 29.2 pg (27.0-32.0); Mean Corpuscular Volume 90.4 fL (81-99); Mean Platelet Vol. 11.4 fl (6.2-12.0); Monocyte% 16.2 % (0-10); NRBC Flagged by Analyzer 0 % (0-5); Neutrophil # 3.14 X10^3/uL (2.7-7.7); Neutrophil % 63.4 % (47-70); Platelet Count 131 K/mm3 (150-450); RBC Distribution Width CV 14.6 % (11.6-14.6); RBC Distribution Width SD 48.6 fl (35.1-43.9); Red Blood Count 2.81 M/mm3 (4.2-5.4)
[2020-09-20 07:28] LABS: Anion Gap 6 (5-15); BUN 60 mg/dL (7-18); BUN/Creat Ratio 31.4 RATIO (10-20); Calcium,Total 8.1 mg/dL (8.5-10.1); Chloride 116 mmol/L (98-107); Creatinine, Serum 1.91 mg/dL (0.55-1.02); EST Glomerular Filtration Rate 27 mL/min (>60); Est Glom Filt Rate - Afr Amer 32 mL/min (>60); Estimated Creatinine Clearance 17.34 ml/min; Glucose 84 mg/dL (74-106); Potassium 3.8 mmol/L (3.5-5.1); Sodium Level 146 mmol/L (136-145)
[2020-09-20] MEDS: FLUoxetine 20 MG Capsule PO (08:52)
[2020-09-20] MEDS: Pantoprazole Sodium 40 MG Tablet PO ×2 (08:52→21:20)
[2020-09-20] MEDS: Carvedilol 6.25 MG Tablet PO ×2 (08:52→21:20)
[2020-09-20] MEDS: Hydroxychloroquine 200 MG Tablet PO ×2 (08:53→17:08)
[2020-09-20] MEDS: Ferrous Sulfate 325 MG Tablet PO (08:53)
--- NOTE | 2020-09-20 09:45 | CASEMGMT ---
Addendum entered by Tonya Peck 09/20/20 15:23: SW did place a call to pt's daughter Neisha to confirm discharge plans. Neisha states she prefers for pt to return to [facility]. Neisha states if SNF is recommended, she would prefer for pt to admit to a different SNF not return to [facility]. SW updated Neisha that Keith with [facility] was updated and sent clinicals and he will make recommendations as well for what pt will need at discharge and that this worker is waiting for call back from him. Neisha states understanding. Neisha states pt is on [facility] wait list for group home. SW updated Neisha that at this time, [facility] is not taking any new admissions. Plan: return to [facility] vs SNF Addendum entered by Tonya Peck 09/20/20 12:29: SW placed a call to Keith at [facility] and updated him that pt wishes to return to [facility] at discharge. SW faxed updated clinicals. Keith states he will review clinicals and let this worker know recommendation. Original Note: Social Work Note Pt is listed as being from [facility]. SW in to speak with pt. SW introduced self and role at [facility]. Pt is alert to name, place, somewhat time. Pt knew it was August but stated the year was 2000. Pt confirms that she is from [facility]. Pt states she mostly utilizes a wheelchair to get around. Pt confirms she has had some recent falls. Pt states she is not sure why she is falling, state she thinks she sits too far on wheelchair. Pt states she lives with her in [facility]. Pt states she has LW but not HCPOA. SW informed pt that PT/OT will work with pt and make recommendations. Pt denied wanting to return skilled and prefers to return to [facility]. SW informed pt that this worker will keep Keith at [facility]. Pt states that she has two daughters, Lor and Meghan. Plan: PT/OT to eval, make recommendations. Pt wishes to return to [facility] Tonya Peck LIQUOR COMMISSIONER, NOZZLE TENDER
--- NOTE | 2020-09-20 10:41 | PCM.PN.HOSP ---
Patient Problems: Active and Suspected Problems (Last Reviewed 09/08/19 @ 13:21 by Shyann Eldridge) Confusion (Acute) Multiple falls (Acute) Febrile illness (Acute) WILLA (acute kidney injury) (Acute) Subjective: States that she has been feeling tired for the last several months but denies any significant weakness despite falling multiple times at the half-way. Is my first time seeing her however she does seem very pale today Vitals/I&O's: Vital Signs Temp Pulse Resp BP Pulse Ox 97.6 F L 84 18 154/63 H 98 09/20/20 08:42 09/20/20 08:42 09/20/20 08:42 09/20/20 08:42 09/20/20 08:42 Oxygen Delivery Method Room Air Weight: 110 lb 7.225 oz Body Mass Index (BMI) 20.2 Intake and Output for Last 24 Hours 09/18/20 09/19/20 09/20/20 23:59 23:59 23:59 Intake Total 1000 / 1000 200 / 200 Output Total 1650 / 1650 Balance 1000 / 1000 -1450 / -1450 General: Alert, Cooperative, No apparent distress, - - Pale oriented to person and place only HEENT: Atraumatic, PERRLA, EOMI, Normocephalic Oral: Dry Mucosa Neck: Supple, No JVD Lungs: Clear to auscultation, Normal air movement, No rhonchi, No wheeze, No rales, Diminished Cardiovascular: Regular rate, Regular Rhythm, Normal S1, Normal S2, No murmurs Abdomen: Soft, Non Tender, Non-Distended, No Hepato-splenomegaly Extremities: No edema, Capillary Refill Less than 3 Seconds Skin: No rashes, No breakdown Neurological: Neuro grossly intact, Sensory exam intact to light touch and pain Psych/Mental Status: Flat Affect Microbiology Past 72 Hours 09/19/20 22:10 Mucosa - Nose SARS-CoV-2 Antigen (Rapid) - Final Laboratory Results 09/19/20 21:46: WBC 4.5, RBC 3.01 L, Hgb 9.0 L, Hct 27.4 L, MCV 91.0, MCH 29.9, MCHC 32.8, RDW Std Deviation 49.3 H, RDW Coeff of Dre 14.8 H, Plt Count 142 L, MPV 12.0, Immature Gran % (Auto) 0.400, Neut % (Auto) 61.6, Lymph % (Auto) 19.8, [place] % (Auto) 14.3 H, Eos % (Auto) 3.5, Baso % (Auto) 0.4, Absolute Neuts (auto) 2.8, Absolute Lymphs (auto) 0.90, Nucleated RBC % 0 09/19/20 21:46: Sodium 142, Potassium 4.3, Chloride 111 H, Carbon Dioxide 25.0, Anion Gap 6, BUN 72 H, Creatinine 2.22 H, Estim Creat Clear Calc 14.92, Est GFR (MDRD) Af Amer 27 L, Est GFR (MDRD) Non-Af 22 L, BUN/Creatinine Ratio 32.4 H, Glucose 96, Calcium 8.3 L, Total Bilirubin 0.30, AST 19, ALT 15, Alkaline Phosphatase 79, Total Protein 6.9, Albumin 3.2, Globulin 3.7, Albumin/Globulin Ratio 0.9 09/19/20 21:46: Lactic Acid 1.2 09/19/20 22:20: Urine Color Yellow, Urine Clarity Clear, Urine pH 6.0, Ur Specific [place] 1.010, Urine Protein Negative, Urine Glucose (UA) Normal, Urine Ketones Negative, Urine Occult Blood Negative, Urine Nitrite Negative, Urine Bilirubin Negative, Urine Urobilinogen Normal, Ur Leukocyte Esterase Negative, Urine RBC 0 SEEN, Urine WBC 0 SEEN, Ur Squamous Epith Cells 0 SEEN, Urine Bacteria 0 SEEN, Urine Mucus 0 SEEN 09/20/20 06:40: WBC 5.0, RBC 2.81 L, Hgb 8.2 L, Hct 25.4 L, MCV 90.4, MCH 29.2, MCHC 32.3, RDW Std Deviation 48.6 H, RDW Coeff of Dre 14.6, Plt Count 131 L, MPV 11.4, Immature Gran % (Auto) 0.400, Neut % (Auto) 63.4, Lymph % (Auto) 17.4 L, [place] % (Auto) 16.2 H, Eos % (Auto) 2.0, Baso % (Auto) 0.6, Absolute Neuts (auto) 3.1, Absolute Lymphs (auto) 0.86, Nucleated RBC % 0 09/20/20 06:40: Sodium 146 H, Potassium 3.8, Chloride 116 H, Carbon Dioxide 24.0, Anion Gap 6, BUN 60 H, Creatinine 1.91 H, Estim Creat Clear Calc 17.34, Est GFR (MDRD) Af Amer 32 L, Est GFR (MDRD) Non-Af 27 L, BUN/Creatinine Ratio 31.4 H, Glucose 84, Calcium 8.1 L 09/20/20 06:40: Iron Pending, TIBC Pending, Iron Saturation Pending, Ferritin Pending Current Medications Acetaminophen (Acetaminophen 325 Mg Tablet) 650 mg PO Q6H PRN PRN PRN Reason: Pain Score 1-10/Temp > 100.7 F Aspirin (Aspirin E.C. 81 Mg Tablet) 81 mg PO DAILY@0800 [facility] Last Admin: 09/20/20 10:23 Dose: Not Given Documented by: Carvedilol (Carvedilol 6.25 Mg Tablet) 6.25 mg PO BID [facility] Last Admin: 09/20/20 08:52 Dose: 6.25 mg Documented by: Ferrous Sulfate (Ferrous Sulfate 325 Mg Tablet) [facility] Last Admin: 09/20/20 08:53 Dose: 325 mg Documented by: Fluoxetine HCl (Fluoxetine 20 Mg Capsule) 20 mg PO DAILY [facility] Last Admin: 09/20/20 08:52 Dose: 20 mg Documented by: Heparin Sodium (Porcine) (Heparin Injection (Vial) 5,000 Unit/Ml Vial) 5,000 unit SC Q12 [facility] Last Admin: 09/20/20 10:24 Dose: Not Given Documented by: Hydralazine HCl (Hydralazine 20 Mg/Ml Vial) 10 mg IV Q6H PRN PRN PRN Reason: for SBP>160 Last Admin: 09/20/20 00:45 Dose: 10 mg Documented by: Hydroxychloroquine Sulfate (Hydroxychloroquine 200 Mg Tablet) [facility] Last Admin: 09/20/20 08:53 Dose: 200 mg Documented by: Sodium Chloride () 1,000 mls @ 100 mls/hr IV .Q10H [facility] Last Admin: 09/20/20 00:44 Dose: 100 mls/hr Documented by: Leflunomide (Leflunomide 10 Mg Tablet) 20 mg PO DAILY [facility] Nutritional Formula (Lactose Free) (Ensure Enlive 120 Ml Liquid) 120 ml PO 4X/DAY [facility] Last Admin: 09/20/20 08:54 Dose: 120 ml Documented by: Ondansetron HCl (Ondansetron 4 Mg/2 Ml Vial) 4 mg IV Q8H PRN PRN PRN Reason: NAUSEA/VOMITING Pantoprazole Sodium (Pantoprazole Sodium 40 Mg Tablet) 40 mg PO BID [facility] Last Admin: 09/20/20 08:52 Dose: 40 mg Documented by: Psyllium Hydrophilic Mucilloid (Psyllium 1 Packet) 1 packet PO DAILY PRN PRN PRN Reason: CONSTIPATION Senna/Docusate Sodium (Senna/Docusate Sodium 1 Tablet) 2 tablet PO BID PRN PRN PRN Reason: Constipation Sodium Chloride (0.9% Saline Lock 10 Ml Syringe) 10 - 40 ml IV UD PRN PRN Reason: SALINE FLUSH Last Admin: 09/20/20 05:17 Dose: 10 ml Documented by: STROKE Vital Signs/Narrative: Vital Signs Temp Pulse Resp BP Pulse Ox 09/20/20 08:42 97.6 F L 84 18 154/63 H 98 09/20/20 08:30 72 09/20/20 07:20 94 Medical Necessity - Tobacco Use Smoking Status: Never smoker Assessment/Plan All Active Problems (Last Reviewed 09/08/19 @ 13:21 by Shyann Eldridge) Confusion (Acute) Multiple falls (Acute) Febrile illness (Acute) WILLA (acute kidney injury) (Acute) 1. Multiple mechanical fall secondary to debility/WILLA on CKD 3 -PT/OT for evaluation and placement -Continue with gentle IV fluids. Creatinine on admission was 2.22, baseline is around 1.4 -Remains afebrile without a leukocytosis 2. Chronic anemia/chronic thrombocytopenia -Probably iron deficient secondary to the iron studies in early July -We will recheck given how pale she has and the fact that her hemoglobin is 8.2 and she was 9.0 on admission. There is likely a dilutional component at this time -We will recheck iron studies and if necessary give her more iron, my concern is also the leflunomide that she has been on since 2012. Per the daughter, this was started by rheumatology close to 10 years ago at the same time that she was started on Plaquenil. She had bad reactions to infliximab and methotrexate. In discussion with her I will go ahead and discontinue her leflunomide and continue with Plaquenil and will need to continue monitoring hemoglobin levels and see if they improve with cessation of this medication. -Also check a fecal occult stool 3. Chronic diastolic CHF/HTN/HLD -We will hold her Lasix secondary to her WILLA -Blood pressure is stable -Continue with Coreg 4. Rheumatoid arthritis/chronic pain -Stable -Continue with leflunomide and Plaquenil -We will hold Lyrica given WILLA DVT: SCDs Inpatient E&M: 18299 Subs Hosp L2
[2020-09-20 10:54] LABS: Ferritin 514 ng/mL (8-252); Iron 42 ug/dL (50-170); Iron Binding Capacity,Total 167 ug/dL (250-450); PERCENT IRON SATURATION 25.1 % (15.0-55.0)
[2020-09-20] MEDS: Leflunomide 10 MG TABLET 20 MG PO (11:09)
[2020-09-20] MEDS: Senna/Docusate Sodium 1 Tablet 2 TABLET PO (12:47)
[2020-09-20 18:19] LABS: Hematocrit 27.4 % (37-47)
[2020-09-20] MEDS: Ondansetron 4 MG/2 ML Vial IV (20:51)
[2020-09-20] MEDS: Heparin Injection (Vial) 5,000 UNIT/ML VIAL 5000 UNIT SC (21:20)
[2020-09-20] MEDS: Zolpidem Tartrate 5 MG Tablet PO (23:56)
[2020-09-21] VITALS (10 sets, daily range): BP systolic 125–165; BP diastolic 57–89; PULSE 68–78; RESP 16–18; TEMP 36.8–37.3; O2SAT 95–100
--- NOTE | 2020-09-21 00:48 | PCS.PANDOC ---
PANDEMIC DOCUMENTATION INITIATED: Date: 09/20/20 Time: 000
[2020-09-21] MEDS: 0.9% Normal Saline 1,000 ML 100 ML IV (01:29)
[2020-09-21 06:32] LABS: Absolute Lymphocyte Count 1.16 X10^3/uL (0.83-4.51); Absolute Neutrophil Count 2.2 X10^3/uL (2.0-7.7); Basophil# 0.04 X10^3/uL; Eosinophil# 0.11 X10^3/uL; Eosinophils% 2.7 % (0-5); Hematocrit 25.4 % (37-47); Hemoglobin 8.2 g/dL (12.0-15.0); Lymphocyte # 1.16 X10^3/ul (4.0); Lymphocyte % 28.9 % (19-41); Mean Corp Hgb Conc 32.3 g/dL (32-36); Mean Corpuscular Hgb 29.6 pg (27.0-32.0); Mean Corpuscular Volume 91.7 fL (81-99); Mean Platelet Vol. 12.3 fl (6.2-12.0); Monocyte# 0.53 X10^3/uL; Monocyte% 13.2 % (0-10); NRBC Flagged by Analyzer 0 % (0-5); Neutrophil # 2.16 X10^3/uL (2.7-7.7); Platelet Count 130 K/mm3 (150-450); RBC Distribution Width CV 14.9 % (11.6-14.6); RBC Distribution Width SD 50.4 fl (35.1-43.9); Red Blood Count 2.77 M/mm3 (4.2-5.4)
[2020-09-21 07:00] LABS: Anion Gap 7 (5-15); BUN 46 mg/dL (7-18); BUN/Creat Ratio 29.9 RATIO (10-20); Calcium,Total 8.1 mg/dL (8.5-10.1); Chloride 119 mmol/L (98-107); Creatinine, Serum 1.54 mg/dL (0.55-1.02); EST Glomerular Filtration Rate 34 mL/min (>60); Est Glom Filt Rate - Afr Amer 41 mL/min (>60); Estimated Creatinine Clearance 21.51 ml/min; Glucose 94 mg/dL (74-106); Potassium 3.9 mmol/L (3.5-5.1); Sodium Level 146 mmol/L (136-145)
[2020-09-21] MEDS: Ferrous Sulfate 325 MG Tablet PO (08:52)
[2020-09-21] MEDS: Carvedilol 6.25 MG Tablet PO ×2 (08:52→21:24)
[2020-09-21] MEDS: Hydroxychloroquine 200 MG Tablet PO (08:52)
[2020-09-21] MEDS: Aspirin E.C. 81 MG Tablet PO (08:52)
[2020-09-21] MEDS: Pantoprazole Sodium 40 MG Tablet PO ×2 (08:53→21:24)
[2020-09-21] MEDS: FLUoxetine 20 MG Capsule PO (08:53)
[2020-09-21] MEDS: Heparin Injection (Vial) 5,000 UNIT/ML VIAL 5000 UNIT SC ×2 (08:53→21:24)
--- NOTE | 2020-09-21 10:35 | CASEMGMT ---
Addendum entered by Tonya Peck 09/21/20 13:33: PAMELA placed another call to Keith at [facility] and left message asking if he had the chance to review clinicals and what their recommendations are as pt is medically ready for discharge today. SW waiting for call back. Addendum entered by Tonya Peck 09/21/20 11:40: PAMELA placed a call to Keith at [facility], asked if pt is able to return to [facility]. Keith states he would like to review updated clinicals and let this worker know. Original Note: Social Work Note PAMELA faxed updated PT/OT notes to Keith at [facility]. PAMELA wrote on fax coversheet that pt and daughter prefer for pt to return to [facility] at discharge. Tonya Peck CV/CVN CV TSC SYSTEM OPERATOR, PAPERHANGER AND PAINTER
--- NOTE | 2020-09-21 12:38 | PN_ITS ---
Patient Problems: Active and Suspected Problems (Last Reviewed 09/08/19 @ 13:21 by Shyann Eldridge) Confusion (Acute) Multiple falls (Acute) Febrile illness (Acute) WILLA (acute kidney injury) (Acute) Subjective: Still feels weak, hemoglobin is stable and she denies any GI bleed she states that she gets very constipated and when she does have a bowel movement it is painful and she frequently notices blood on her toilet paper Vitals/I&O's: Vital Signs Temp Pulse Resp BP Pulse Ox 98.8 F 75 18 137/69 H 99 09/21/20 09:57 09/21/20 10:32 09/21/20 09:57 09/21/20 09:57 09/21/20 09:57 Oxygen Delivery Method Room Air Weight: 110 lb 7.225 oz Body Mass Index (BMI) 20.2 Intake and Output for Last 24 Hours 09/19/20 09/20/20 09/21/20 23:59 23:59 23:59 Intake Total 1000 / 1000 1200 / 1200 1320 / 1320 Output Total 2510 / 2510 400 / 400 Balance 1000 / 1000 -1310 / -1310 920 / 920 General: Alert, Cooperative, No apparent distress, - - Pale oriented to person and place only HEENT: Atraumatic, PERRLA, EOMI, Normocephalic Oral: Dry Mucosa Neck: Supple, No JVD Lungs: Clear to auscultation, Normal air movement, No rhonchi, No wheeze, No rales, Diminished Cardiovascular: Regular rate, Regular Rhythm, Normal S1, Normal S2, No murmurs Abdomen: Soft, Non Tender, Non-Distended, No Hepato-splenomegaly Extremities: No edema, Capillary Refill Less than 3 Seconds Skin: No rashes, No breakdown Neurological: Neuro grossly intact, Sensory exam intact to light touch and pain Psych/Mental Status: Flat Affect Microbiology Past 72 Hours 09/20/20 12:45 Stool Stool Occult Blood (MAISHA) - Final Occult Blood Positive 09/19/20 22:10 Mucosa - Nose SARS-CoV-2 Antigen (Rapid) - Final Laboratory Results 09/20/20 18:07: Hgb 9.0 L, Hct 27.4 L 09/21/20 05:25: WBC 4.0 L, RBC 2.77 L, Hgb 8.2 L, Hct 25.4 L, MCV 91.7, MCH 29.6, MCHC 32.3, RDW Std Deviation 50.4 H, RDW Coeff of Dre 14.9 H, Plt Count 130 L, MPV 12.3 H, Immature Gran % (Auto) 0.200, Neut % (Auto) 54.0, Lymph % (Auto) 28.9, [place] % (Auto) 13.2 H, Eos % (Auto) 2.7, Baso % (Auto) 1.0, Absolute Neuts (auto) 2.2, Absolute Lymphs (auto) 1.16, Nucleated RBC % 0 09/21/20 05:25: Sodium 146 H, Potassium 3.9, Chloride 119 H, Carbon Dioxide 20.0 L, Anion Gap 7, BUN 46 H, Creatinine 1.54 H, Estim Creat Clear Calc 21.51, Est GFR (MDRD) Af Amer 41 L, Est GFR (MDRD) Non-Af 34 L, BUN/Creatinine Ratio 29.9 H , Glucose 94, Calcium 8.1 L Current Medications Acetaminophen (Acetaminophen 325 Mg Tablet) 650 mg PO Q6H PRN PRN PRN Reason: Pain Score 1-10/Temp > 100.7 F Aspirin (Aspirin E.C. 81 Mg Tablet) 81 mg PO DAILY@0800 [facility] Last Admin: 09/21/20 08:52 Dose: 81 mg Documented by: Carvedilol (Carvedilol 6.25 Mg Tablet) 6.25 mg PO BID [facility] Last Admin: 09/21/20 08:52 Dose: 6.25 mg Documented by: Ferrous Sulfate (Ferrous Sulfate 325 Mg Tablet) [facility] Last Admin: 09/21/20 08:52 Dose: 325 mg Documented by: Fluoxetine HCl (Fluoxetine 20 Mg Capsule) 20 mg PO DAILY [facility] Last Admin: 09/21/20 08:53 Dose: 20 mg Documented by: Heparin Sodium (Porcine) (Heparin Injection (Vial) 5,000 Unit/Ml Vial) 5,000 unit SC Q12 [facility] Last Admin: 09/21/20 08:53 Dose: 5,000 unit Documented by: Hydralazine HCl (Hydralazine 20 Mg/Ml Vial) 10 mg IV Q6H PRN PRN PRN Reason: for SBP>160 Last Admin: 09/20/20 00:45 Dose: 10 mg Documented by: Hydroxychloroquine Sulfate (Hydroxychloroquine 200 Mg Tablet) [facility] Last Admin: 09/21/20 08:52 Dose: 200 mg Documented by: Ondansetron HCl (Ondansetron 4 Mg/2 Ml Vial) 4 mg IV Q8H PRN PRN PRN Reason: NAUSEA/VOMITING Last Admin: 09/20/20 20:51 Dose: 4 mg Documented by: Pantoprazole Sodium (Pantoprazole Sodium 40 Mg Tablet) 40 mg PO BID [facility] Last Admin: 09/21/20 08:53 Dose: 40 mg Documented by: Psyllium Hydrophilic Mucilloid (Psyllium 1 Packet) 1 packet PO DAILY PRN PRN PRN Reason: CONSTIPATION Senna/Docusate Sodium (Senna/Docusate Sodium 1 Tablet) 2 tablet PO BID PRN PRN PRN Reason: Constipation Last Admin: 09/20/20 12:47 Dose: 2 tablet Documented by: Sodium Chloride (0.9% Saline Lock 10 Ml Syringe) 10 - 40 ml IV UD PRN PRN Reason: SALINE FLUSH Last Admin: 09/20/20 18:21 Dose: 10 ml Documented by: Zolpidem Tartrate (Zolpidem Tartrate 5 Mg Tablet) 5 mg PO QHS PRN PRN PRN Reason: INSOMNIA Last Admin: 09/20/20 23:56 Dose: 5 mg Documented by: STROKE Vital Signs/Narrative: Vital Signs Temp Pulse Resp BP Pulse Ox 09/21/20 10:32 75 09/21/20 09:57 98.8 F 77 18 137/69 H 99 Medical Necessity - Tobacco Use Smoking Status: Never smoker Assessment/Plan All Active Problems (Last Reviewed 09/08/19 @ 13:21 by Shyann Eldridge) Confusion (Acute) Multiple falls (Acute) Febrile illness (Acute) WILLA (acute kidney injury) (Acute) 1. Multiple mechanical fall secondary to debility/WILLA on CKD 3 -PT/OT for evaluation and placement -Creatinine is 1.54, will discontinue IV fluids -Remains afebrile without a leukocytosis 2. Chronic anemia/chronic thrombocytopenia -Iron studies do not show any iron deficiency at this time -We will recheck given how pale she has and the fact that her hemoglobin is 8.2 and she was 9.0 on admission, in the afternoon yesterday she was 9 and then this morning again she was 8.2. There is likely a dilutional component at this time -My concern is also the leflunomide that she has been on since 2012. Per the daughter, this was started by rheumatology close to 10 years ago at the same time that she was started on Plaquenil. She had bad reactions to infliximab and methotrexate. In discussion with her I will go ahead and discontinue her leflunomide and continue with Plaquenil and will need to continue monitoring hemoglobin levels and see if they improve with cessation of this medication. -Also check a fecal occult stool 3. Chronic diastolic CHF/HTN/HLD -We will hold her Lasix secondary to her WILLA -Blood pressure is stable -Continue with Coreg 4. Rheumatoid arthritis/chronic pain -Stable -Continue with Plaquenil will discontinue the leflunomide -We will hold Lyrica given WILLA Disposition: She would like to go back to her assisted living with her however there is some possibility of skilled. Unfortunate the daughter would not want her to go to the skilled side of the assisted living location so we are still awaiting acceptance for disposition. DVT: SCDs Inpatient E&M: [id number] Subs Hosp L2
--- NOTE | 2020-09-21 14:18 | CASEMGMT ---
Addendum entered by Tonya Peck 09/21/20 15:05: SW received call from pt's other daughter Lor. [phone]. Lor states her sister Neisha got a call but Neisha is currently at doctor appointment and Lor was asked to call this worker. Lor is not listed on demographics. SW in to speak with pt. Pt confirms she also has a daughter named Lor and gave this worker permission to call her. SW placed a call to Lor. SW updated Lor that Keith at [facility] is requesting pt admit to SNF for additional therapy at this time. SW informed Lor that Keith likely has concerns as pt is weaker and has had recent falls. Lor confirms that plan is for pt to return to [facility] as it is the holiday season and they really want pt to be with her during this time. Lor also mentioned that if pt were to need skilled, pt would not be going to [facility]. oLr again states if they are able to keep pt out of SNF and have pt return to [facility] that is the preference. SW informed Lor that Keith may ask for increase in services but informed Lor that HHC is not an option per Keith as they are limiting the amount of people that come into [facility]. Lor states that is fine if pt needs more services and family will pay for more services. Lor asked when pt is ready for discharge. SW informed Lor that pt is medically ready once this worker can confirm what discharge plans is. Lor states pt will need transportation arranged. PAMELA placed another call to Keith at [facility] and left message that pt and pt's family are adamant that pt return to [facility] to be with her . SW informed Keith that pt/family is willing to pay more for services if needed. PAMELA waiting for another call back from Keith at [facility]. Addendum entered by Tonya Peck 09/21/20 14:29: *daughter's name is Neisha Rodriguez Original Note: Social Work Note SW received message from Keith at [facility] stating recommendation is SNF. Keith states they cant even get Home Health Care on [facility] side at this time as they are restricting who enters the facility due to COVID. SW in to speak with pt. Pt alert to name, place, somewhat time. Pt knew it was August, thought it was the , and the year is 1999. SW updated pt that the recommendation is for pt to return to skilled side. Pt adamantly refusing skilled side. Pt states she just wants to return back home in her apartment on the [facility] with her . SW informed pt that Keith seems to just have concerns as pt has been falling and they are not able to get C in ID at this time. SW informed pt that she could likely go to different SNF than [facility] but informed pt that she wouldn't be able to see her regardless of any SNF she goes to. Pt again states she will be returning to [facility]. SW asked pt if this worker could call her daughter and pt gave this worker permission to do so. SW placed a call to pt's daughter Jennifer and left message to call this worker back regarding discharge plans. SW waiting for call back. Tonya Peck PLASTICS SHEET FINISHING PRESS OPERATOR, SAND BLASTER
--- NOTE | 2020-09-21 16:10 | CASEMGMT ---
Social Work Note PAMELA received call from Keith at [facility] stating [facility] is able to accept pt back today. PAMELA updated Keith that pt should be medically ready, will let physician know and arrange transportation. Keith states understanding. PAMELA spoke with RN, Pt has read catheter in. Plan is for catheter to be removed and see if pt voids, plan will be discharge tomorrow. PAMELA placed a call back to Keith at [facility] and left message that pt will now be staying at [facility] today, likely discharge tomorrow. PAMELA placed a call to pt's daughter Lor and updated her that pt is able to return to [facility] and pt will likely discharge there tomorrow now. Lor states understanding, thanked this worker. Plan: Return to [facility] once medically cleared Tonya Peck WILDLIFE REFUGE SPECIALIST, CLINICAL RESEARCH MANAGER
[2020-09-22 02:40] VITALS: BP 156/89; PULSE 78; RESP 16; TEMP 36.8; O2SAT 97
[2020-09-22] MEDS: Pantoprazole Sodium 40 MG Tablet PO (07:33)
[2020-09-22] MEDS: FLUoxetine 20 MG Capsule PO (07:34)
[2020-09-22] MEDS: Heparin Injection (Vial) 5,000 UNIT/ML VIAL 5000 UNIT SC (07:34)
[2020-09-22] MEDS: Aspirin E.C. 81 MG Tablet PO (07:34)
[2020-09-22] MEDS: Ferrous Sulfate 325 MG Tablet PO (07:34)
[2020-09-22] MEDS: Carvedilol 6.25 MG Tablet PO (07:34)
[2020-09-22] MEDS: Hydroxychloroquine 200 MG Tablet PO (07:34)
[2020-09-22 08:10] LABS: Absolute Lymphocyte Count 0.96 X10^3/uL (0.83-4.51); Absolute Neutrophil Count 3.9 X10^3/uL (2.0-7.7); Basophil# 0.04 X10^3/uL; Basophil% 0.7 % (0-1); Eosinophil# 0.15 X10^3/uL; Eosinophils% 2.7 % (0-5); Hematocrit 27.6 % (37-47); Hemoglobin 8.8 g/dL (12.0-15.0); Lymphocyte # 0.96 X10^3/ul (4.0); Lymphocyte % 17.3 % (19-41); Mean Corp Hgb Conc 31.9 g/dL (32-36); Mean Corpuscular Hgb 29.6 pg (27.0-32.0); Mean Corpuscular Volume 92.9 fL (81-99); Mean Platelet Vol. 11.6 fl (6.2-12.0); Monocyte# 0.47 X10^3/uL; Monocyte% 8.5 % (0-10); NRBC Flagged by Analyzer 0 % (0-5); Neutrophil # 3.93 X10^3/uL (2.7-7.7); Neutrophil % 70.6 % (47-70); Platelet Count 137 K/mm3 (150-450); RBC Distribution Width CV 15.2 % (11.6-14.6); RBC Distribution Width SD 51.8 fl (35.1-43.9); Red Blood Count 2.97 M/mm3 (4.2-5.4); White Blood Count 5.6 K/mm3 (4.4-11.0)
[2020-09-22 08:16] VITALS: BP 147/76; PULSE 80; RESP 18; TEMP 36.7; O2SAT 96
[2020-09-22 08:34] LABS: Anion Gap 6 (5-15); BUN 37 mg/dL (7-18); Calcium,Total 8.1 mg/dL (8.5-10.1); Chloride 117 mmol/L (98-107); Creatinine, Serum 1.37 mg/dL (0.55-1.02); EST Glomerular Filtration Rate 39 mL/min (>60); Est Glom Filt Rate - Afr Amer 47 mL/min (>60); Estimated Creatinine Clearance 24.18 ml/min; Glucose 121 mg/dL (74-106); Potassium 3.9 mmol/L (3.5-5.1); Sodium Level 144 mmol/L (136-145)
--- NOTE | 2020-09-22 09:46 | DCINST_ITS ---
- Discharge Diagnoses Current Active Problems: Current Active and Chronic Problems (Last Reviewed 09/08/19 @ 13:21 by Shyann Eldridge) Confusion (Acute) Multiple falls (Acute) Febrile illness (Acute) WILLA (acute kidney injury) (Acute) Chronic diastolic (congestive) heart failure (Chronic) Hyperlipidemia (Chronic) CKD (chronic kidney disease), stage III (Chronic) Chronic anemia (Chronic) Chronic pain syndrome (Chronic) Depression (Chronic) Rheumatoid arthritis (Chronic) You will use the following diet at home:: Cardiac Your food should be the consistency of: Regular Your liquids should be the consistency of: Regular/Thin Discharge Activity: Return to Normal Activity Call your doctor if you observe: Fever of 101 or Higher, Shortness of breath, Dizziness, Fainting spells, Swelling in the ankles, Chest pain, Increased palpitations (irregular heartbeat) Additional Instructions: Obtain repeat BMP and CBC to monitor your kidney function and anemia Allergies/Adverse Reactions: Allergies infliximab [From Remicade] Allergy (Verified 09/19/20 20:47) Hives Penicillins Adverse Reaction (Unknown, Verified 09/20/20 17:17) Hives Fish Containing Products Adverse Reaction (Verified 09/20/20 17:17) Nausea/Vom/Diarrhea methotrexate Adverse Reaction (Verified 09/19/20 20:47) Unknown Medications to take at Discharge Aspirin E.C. [Ecotrin] 81 mg PO DAILY@0800 07/14/13 Omeprazole [Prilosec] 40 mg PO BID 07/14/13 Fluoxetine [Prozac] 20 mg PO DAILY 10/11/16 Hydroxychloroquine [Plaquenil] 200 mg PO BIDCM 02/01/17 Ergocalciferol [Vitamin D] 1.25 mg PO .COMPLEX 02/12/20 Ondansetron [Zofran Odt] 4 mg PO Q8H PRN PRN 02/12/20 Acetaminophen [Tylenol Tablet] 650 mg PO Q6H PRN PRN tab 08/10/20 Carvedilol [Coreg] 3.125 mg PO BID 09/19/20 Ferrous Sulfate 325 mg PO DAILY 09/19/20 Furosemide [Lasix] 40 mg PO DAILY 09/19/20 Pregabalin [Lyrica] 75 mg PO BID 09/19/20 Psyllium [Metamucil] 1 packet PO DAILY PRN PRN 09/19/20 Senna/Docusate Sodium [Senokot-S] 2 tab PO BID PRN PRN 09/19/20 Primary Care Physician: Bassam Brown DO [Primary Care Provider] - Please follow up with your Primary Care Physician in: 3-5 days Test Results: Test results from this visit will be discussed in further detail at your follow- up appointment, if applicable.
--- NOTE | 2020-09-22 09:47 | DS.PCM_ITS ---
Discharge Date and Diagnosis - Problem List Patient Problems: Active and Suspected Problems (Last Reviewed 09/08/19 @ 13:21 by Shyann Eldridge) Confusion (Acute) Multiple falls (Acute) Febrile illness (Acute) WILLA (acute kidney injury) (Acute) Date of Admission: 09/19/20 Date of Discharge: 09/22/20 - Primary Discharge Diagnosis Acute Problems: Active Problems (Last Reviewed 09/08/19 @ 13:21 by Shyann Eldridge) Confusion (Acute) Multiple falls (Acute) Febrile illness (Acute) WILLA (acute kidney injury) (Acute) - Secondary Discharge Diagnosis Chronic Problems: Chronic Problems (Last Reviewed 09/08/19 @ 13:21 by Shyann Eldridge) Nonrheumatic mitral (valve) insufficiency (Chronic) Mild (1+) per echo 03/20/2017 Nonrheumatic aortic (valve) insufficiency (Chronic) Mild (1+) per echo 03/20/2017 Nonrheumatic tricuspid (valve) insufficiency (Chronic) Mild (1+) per echo 03/20/2017 Secondary pulmonary hypertension (Chronic) Chronic diastolic (congestive) heart failure (Chronic) HTN (hypertension) (Chronic) Hyperlipidemia (Chronic) CKD (chronic kidney disease), stage III (Chronic) Chronic anemia (Chronic) Chronic pain syndrome (Chronic) Depression (Chronic) Rheumatoid arthritis (Chronic) Peripheral neuropathy (Chronic) Elevated hemidiaphragm (Chronic) Hospital Course and Treatment Imaging Results: Clinical Impression(s) from Imaging Studies Brain CT 09/19/20 21:12 IMPRESSION: No acute intracranial abnormality. Chronic involutional and white matter changes. Individualized dose optimization techniques were used for this CT. at 8824 Reported and signed by: Jasmine Watson MD Electronically Signed: Jasmine Watson MD at 22:16 EST Tel , Service support , Cervical Spine CT 09/19/20 21:13 IMPRESSION: No acute osseous abnormality. Cervical spondylosis. Individualized dose optimization techniques were used for this CT. at 2218 Reported and signed by: Jasmine Watson MD Electronically Signed: Jasmine Watson MD at 22:18 EST Tel , Service support , Shoulder X-Ray 09/19/20 21:14 IMPRESSION: Degenerative changes without acute osseous abnormality. at 2240 Reported and signed by: Jasmine Watson MD Electronically Signed: Jasmine Watson MD at 22:40 EST Tel , Service support , Chest X-Ray 09/19/20 22:00 IMPRESSION: No acute cardiopulmonary abnormality. at 2239 Reported and signed by: Jasmine Watsno MD Electronically Signed: Jasmine Watson MD at 22:39 EST Tel , Service support , Operations: None Procedures: None Summary of Care Provided: Per HPI: The patient is a 84 year old F with past medical history as mentioned above was referred to the ED from the senior care because of multiple falls. Reportedly, patient had 3 falls today. Currently, she is alert and oriented x2, disoriented to time. She is a poor informant and was not able to provide detailed history. Reportedly, she complained of right shoulder pain. Nursing staff reported that patient had a fever of 101 Fahrenheit today and she was confused. Patient was not able to provide any more details. She had a history of stage III chronic kidney disease and her creatinine has been around 1.4 to 1.9 mg/dL, most recent was 1.42 last month and admission creatinine is 2.22. She had a history of rheumatoid arthritis and she has been on Plaquenil and leflunomide. She will history of hypertension which has been under control with Coreg and Lasix. In the emergency department, she was afebrile, blood pressure was elevated, other vital signs were stable. Routine blood work was remarkable for chronic anemia, chronic thrombocytopenia, BUN of 72 and creatinine of 2.22. Lactic acid was normal. LFT was unremarkable. Urinalysis showed no evidence of infection. CT scan brain showed no acute findings. CT scan cervical spine showed no acute fractures. X-ray of the right shoulder showed no acute osseous abnormality. Chest x-ray showed no acute infiltrate or consolidation. COVID-19 antigen came back negative. She is being admitted for acute kidney injury on top of stage III chronic kidney disease, functional decline, physical debility as well as acute febrile illness without evidence of infection. Hospital Course: 1. Multiple mechanical fall secondary to debility/WILLA on CKD 3 -PT/OT for evaluation and placement -Creatinine is baseline -Remains afebrile without a leukocytosis 2. Chronic anemia/chronic thrombocytopenia -Iron studies do not show any iron deficiency at this time -Her hemoglobin stabilized and is 8.8 on the day of discharge -My concern is also the leflunomide that she has been on since 2012. Per the daughter, this was started by rheumatology close to 10 years ago at the same time that she was started on Plaquenil. She had bad reactions to infliximab and methotrexate. In discussion with her I will go ahead and discontinue her leflunomide and continue with Plaquenil and will need to continue monitoring hemoglobin levels and see if they improve with cessation of this medication. -Her fecal occult stool is positive however I think this is secondary to her chronic issues with constipation and the fact that she has hard stools whenever she has a BM leading to either bleeding hemorrhoid or anal fissures. -I discussed with her the plan for discharge today and she expressed understanding of the risks and benefits of going back to the assisted living. She wants to go back to the assisted living she seems tired of going through a bunch of work-ups and would just like to spend time with her as she says that she is does not have any more Suzanne that she will have with him. 3. Chronic diastolic CHF/HTN/HLD -She can cautiously resume her Lasix at the assisted living, would monitor BMP closely -Blood pressure is stable -Continue with Coreg 4. Rheumatoid arthritis/chronic pain -Stable -Continue with Plaquenil will discontinue the leflunomide -She can restart her Lyrica Patient Problems: Active and Suspected Problems (Last Reviewed 09/08/19 @ 13:21 by Shyann Eldridge) Confusion (Acute) Multiple falls (Acute) Febrile illness (Acute) WILLA (acute kidney injury) (Acute) - Physical Exam Vitals/I&O's: Vital Signs Temp Pulse Resp BP Pulse Ox 98.1 F 80 18 147/76 H 96 09/22/20 08:16 09/22/20 08:16 09/22/20 08:16 09/22/20 08:16 09/22/20 08:16 Oxygen Delivery Method Room Air Weight: 110 lb 7.225 oz Body Mass Index (BMI) 20.2 Intake and Output for Last 24 Hours 09/20/20 09/21/20 09/22/20 23:59 23:59 23:59 Intake Total 1200 / 1200 2620 / 2620 Output Total 2510 / 2510 900 / 900 300 / 300 Balance -1310 / -1310 1720 / 1720 -300 / -300 General: Alert, Cooperative, No apparent distress, - - Pale oriented to person and place only HEENT: Atraumatic, PERRLA, EOMI, Normocephalic Oral: Dry Mucosa Neck: Supple, No JVD Lungs: Clear to auscultation, Normal air movement, No rhonchi, No wheeze, No rales, Diminished Cardiovascular: Regular rate, Regular Rhythm, Normal S1, Normal S2, No murmurs Abdomen: Soft, Non Tender, Non-Distended, No Hepato-splenomegaly Extremities: No edema, Capillary Refill Less than 3 Seconds Skin: No rashes, No breakdown Neurological: Neuro grossly intact, Sensory exam intact to light touch and pain Psych/Mental Status: Flat Affect Microbiology Past 72 Hours 09/19/20 22:16 Blood Culture (Wb) - Left Hand Blood Culture - Preliminary No growth in 48 hours. 09/19/20 21:46 Blood Culture (Wb) - Anticubital Left Blood Culture - Preliminary No growth in 48 hours. 09/20/20 12:45 Stool Stool Occult Blood (MAISHA) - Final Occult Blood Positive 09/19/20 22:10 Mucosa - Nose SARS-CoV-2 Antigen (Rapid) - Final Laboratory Results 09/22/20 07:59: WBC 5.6, RBC 2.97 L, Hgb 8.8 L, Hct 27.6 L, MCV 92.9, MCH 29.6, MCHC 31.9 L, RDW Std Deviation 51.8 H, RDW Coeff of Dre 15.2 H, Plt Count 137 L, MPV 11.6, Immature Gran % (Auto) 0.200, Neut % (Auto) 70.6 H, Lymph % (Auto) 17.3 L, [facility] [place] [facility] % (Auto) 8.5, Eos % (Auto) 2.7, Baso % (Auto) 0.7, Absolute Neuts (auto) 3.9, Absolute Lymphs (auto) 0.96, Nucleated RBC % 0 09/22/20 07:59: Sodium 144, Potassium 3.9, Chloride 117 H, Carbon Dioxide 21.0, Anion Gap 6, BUN 37 H, Creatinine 1.37 H, Estim Creat Clear Calc 24.18, Est GFR (MDRD) Af Amer 47 L, Est GFR (MDRD) Non-Af 39 L, BUN/Creatinine Ratio 27.0 H, Glucose 121 H, Calcium 8.1 L Current Medications Acetaminophen (Acetaminophen 325 Mg Tablet) 650 mg PO Q6H PRN PRN PRN Reason: Pain Score 1-10/Temp > 100.7 F Aspirin (Aspirin E.C. 81 Mg Tablet) 81 mg PO DAILY@0800 [facility] Last Admin: 09/22/20 07:34 Dose: 81 mg Documented by: Carvedilol (Carvedilol 6.25 Mg Tablet) 6.25 mg PO BID [facility] Last Admin: 09/22/20 07:34 Dose: 6.25 mg Documented by: Ferrous Sulfate (Ferrous Sulfate 325 Mg Tablet) 325 mg PO DAILYCM [facility] Last Admin: 09/22/20 07:34 Dose: 325 mg Documented by: Fluoxetine HCl (Fluoxetine 20 Mg Capsule) 20 mg PO DAILY [facility] Last Admin: 09/22/20 07:34 Dose: 20 mg Documented by: Heparin Sodium (Porcine) (Heparin Injection (Vial) 5,000 Unit/Ml Vial) 5,000 unit SC Q12 [facility] Last Admin: 09/22/20 07:34 Dose: 5,000 unit Documented by: Hydralazine HCl (Hydralazine 20 Mg/Ml Vial) 10 mg IV Q6H PRN PRN PRN Reason: for SBP>160 Last Admin: 09/20/20 00:45 Dose: 10 mg Documented by: Hydroxychloroquine Sulfate ([facility]lor[facility]ine 200 Mg Tablet) [facility] Last Admin: 09/22/20 07:34 Dose: 200 mg Documented by: Ondansetron HCl (Ondansetron 4 Mg/2 Ml Vial) 4 mg IV Q8H PRN PRN PRN Reason: NAUSEA/VOMITING Last Admin: 09/20/20 20:51 Dose: 4 mg Documented by: Pantoprazole Sodium (Pantoprazole Sodium 40 Mg Tablet) 40 mg PO BID [facility] Last Admin: 09/22/20 07:33 Dose: 40 mg Documented by: Psyllium Hydrophilic Mucilloid (Psyllium 1 Packet) 1 packet PO DAILY PRN PRN PRN Reason: CONSTIPATION Senna/Docusate Sodium (Senna/Docusate Sodium 1 Tablet) 2 tablet PO BID PRN PRN PRN Reason: Constipation Last Admin: 09/20/20 12:47 Dose: 2 tablet Documented by: Zolpidem Tartrate (Zolpidem Tartrate 5 Mg Tablet) 5 mg PO QHS PRN PRN PRN Reason: INSOMNIA Last Admin: 09/20/20 23:56 Dose: 5 mg Documented by: Discharge Activity: Return to Normal Activity Call your doctor if you observe: Fever of 101 or Higher, Shortness of breath, Dizziness, Fainting spells, Swelling in the ankles, Chest pain, Increased palpitations (irregular heartbeat) Home Medications: Medications to take at Discharge Aspirin E.C. [Ecotrin] 81 mg PO DAILY@0800 07/14/13 Omeprazole [Prilosec] 40 mg PO BID 07/14/13 Fluoxetine [Prozac] 20 mg PO DAILY 10/11/16 Hydroxychloroquine [Plaquenil] 200 mg PO BID 02/01/17 Ergocalciferol [Vitamin D] 1.25 mg PO .COMPLEX 02/12/20 Ondansetron [Zofran Odt] 4 mg PO Q8H PRN PRN 02/12/20 Acetaminophen [Tylenol Tablet] 650 mg PO Q6H PRN PRN tab 08/10/20 Carvedilol [Coreg] 3.125 mg PO BID 09/19/20 Ferrous Sulfate 325 mg PO DAILY 09/19/20 Furosemide [Lasix] 40 mg PO DAILY 09/19/20 Pregabalin [Lyrica] 75 mg PO BID 09/19/20 Psyllium [Metamucil] 1 packet PO DAILY PRN PRN 09/19/20 Senna/Docusate Sodium [Senokot-S] 2 tab PO BID PRN PRN 09/19/20 Primary Care Physician: Bassam Brown DO [Primary Care Provider] - Please follow up with your Primary Care Physician in: 3-5 days Disposition: Residential facility Minutes spent on discharge:: 35 Patient Condition:: Stable Medical Necessity - Tobacco Use Smoking Status: Never smoker Meaningful Use Info Meaningful Use Diagnoses (Choose all that apply): None applicable Inpatient E&M: [id number] [facility]
[2020-09-22 09:52] VITALS: O2SAT 97
--- NOTE | 2020-09-22 10:34 | CASEMGMT ---
Social Work Note Pt is medically cleared for discharge today back to [facility]. Pt was able to void. PAMELA Faxed discharge instructions, discharge summary and COVID screening tool to Keith at [facility]. PAMELA spoke with RN, due to pt's intermittent confusion, cot is being recommended. SW accessed trip assist, earliest time physician's is able to transport pt is 12:30pm. Transportation form completed and placed on MILA folder. PAMELA updated RN on transportation time. SW in to speak with pt, SW updated pt that she will be discharged back to [facility] and transportation is arranged for 12:30pm as that is the earliest transportation can arrive. Pt states understanding. Pt gave this worker permission to call her daughters Lor and Neisha to update. PAMELA placed a call to Keith at [facility] and left message that pt will be discharged back to [facility] and transportation is arranged for 12:30pm. PAMELA placed a call to pt's daughter's Lor and Neisha and updated them both on discharge back to [facility] today with transportation arranged at 12:30pm. Lor and Neisha state understanding, thanked this worker. Plan: Return to [facility] with physician's ambulance transporting pt via cot at 12:30pm Tonya DOOLEY, [employer]
--- NOTE | 2020-09-22 11:10 | NURSING ---
attempted to call ace salcido with discharge inst/report but no answer. called daughter evan with discharge inst.
== END 2020-09-22 13:00 | disposition home or self-care (01) | DRG 683 ==
LOC: ED 23:02 → MS3 23:34
PROVIDERS: Admitting Provider Hospitalist; Emergency Provider Emergency Medicine; PCP Family Medicine; Referring Provider Hospitalist; Visit Provider Family Medicine
DX: N17.9 Acute kidney failure, unspecified (principal); I13.0 Hypertensive heart and chronic kidney disease with heart failure and stage 1 through stage 4 chronic kidney disease, or unspecified chronic kidney disease; I50.32 Chronic diastolic (congestive) heart failure; R41.0 Disorientation, unspecified; N18.30 Chronic kidney disease, stage 3 unspecified; R29.6 Repeated falls; R50.9 Fever, unspecified; I08.3 Combined rheumatic disorders of mitral, aortic and tricuspid valves; I27.20 Pulmonary hypertension, unspecified; E78.5 Hyperlipidemia, unspecified; D64.9 Anemia, unspecified; G89.4 Chronic pain syndrome; F32.9 Major depressive disorder, single episode, unspecified; M06.9 Rheumatoid arthritis, unspecified; G62.9 Polyneuropathy, unspecified; K59.09 Other constipation; D69.6 Thrombocytopenia, unspecified; M25.511 Pain in right shoulder; R53.81 Other malaise; Z79.82 Long term (current) use of aspirin; Z79.899 Other long term (current) drug therapy
CPT/HCPCS: 36415; 70450; 71045; 72125; 73030; 80048; 80053; 81001; 82274; 82728; 83540; 83550; 83605; 85014; 85018; 85025; 87040; 87426; 93005; 97110; 97162; 97166; 97530; 97802; 99285; J7030; A4216; J2405